=== PATIENT | male | born 1950 | race Caucasian/White ===

== ENCOUNTER 2018-10-18 04:27 | Outpatient (CLI) | payer MEDICARE, OTHER ==
--- NOTE | 2018-10-18 12:15 | RAD ---
XR Chest Pa Lat STANDARD History: [Preop] Comparison: None. Findings: Lungs are clear. No pneumothorax or effusion. Cardiac silhouette and mediastinal contours a re within normal limits. No acute osseous abnormality. Impression: No acute intrathoracic abnormality.
--- NOTE | 2018-10-19 10:58 | EKG ---
Test Reason : Blood Pressure : / mmHG Vent. Rate : 060 BPM Atrial Rate : 060 BPM P-R Int : 150 ms QRS Dur : 086 ms QT Int : 424 ms P-R-T Axes : 055 021 022 degrees QTc Int : 424 ms Normal sinus rhythm Normal ECG No previous ECGs available Confirmed by DR. Paulina HARTLEY ([id number]) on 10/19/2018 10:58:31 AM Referred By: ECTOR Confirmed By:DR. Paulina HARTLEY
== END 2018-10-18 04:28 | disposition home or self-care (01) ==
LOC: LABBT 04:27
PROVIDERS: ATTEND Thoracic Surgery (Cardiothoracic Vascular Surgery)
DX: Z01.818 Encounter for other preprocedural examination (principal); I65.21 Occlusion and stenosis of right carotid artery
CPT/HCPCS: 71046; 93005; 93010

== ENCOUNTER 2018-10-18 11:30 | Inpatient (IN) | payer MEDICARE, OTHER ==
[2018-10-18 12:23] LABS: Hemoglobin 15.7 g/dL (14.0-18.0); Mean Corpuscular Hemoglobin 32.8 pg (27.0-31.0); Mean Corpuscular Volume 96.4 fL (78.0-98.0); Mean Platelet Volume 6.9 fL (7.4-10.4); Platelet Count 188 thou/uL (130-400); RBC Distribution Width 11.8 % (11.5-14.5); Red Blood Cell (RBC) Count 4.79 mill/uL (4.70-6.10)
[2018-10-18 12:33] LABS: PTT 27.1 SEC (22.9-36.1); Prothrombin Time 13.2 SEC (12.0-14.7)
[2018-10-18 12:44] LABS: Anion Gap 13 mmol/L (10-20); BUN (Urea Nitrogen) 18 mg/dL (8.4-25.7); Calc. Creatinine Clearance 0 mL/min (70-130); Calcium 10.3 mg/dL (7.8-10.44); Carbon Dioxide 30 mmol/L (23-31); Chloride 98 mmol/L (98-107); Estimated GFR-MDRD 74; Glucose 112 mg/dL (80-115); Potassium 4.3 mmol/L (3.5-5.1); Sodium 137 mmol/L (136-145)
[2018-10-21] MEDS ORDERED: CEFAZOLIN 1 GM VIAL ONE (06:12)
[2018-10-21] MEDS ORDERED: Vancomycin HCl 1.5 GM in Sodium Chloride 0.9% 250 ML 300 ML IVPB SCH (06:15)
[2018-10-21] MEDS ORDERED: Albumin 5% 0 ML ONE (06:38)
[2018-10-21] MEDS ORDERED: Fentanyl 250 MCG/5 ML VIAL ONE (06:45)
[2018-10-21] MEDS ORDERED: Heparin 10,000 UNITS/1 ML VIAL 30,000 UNITS in Sodium Chloride 0.9% 1,000 ML FS SCH (06:45)
[2018-10-21] MEDS ORDERED: Midazolam HCl 5 mg/5 ml Vial ONE (06:45)
[2018-10-21] MEDS ORDERED: Milrinone 10 MG/10 ML VIAL ONE (06:46)
[2018-10-21] MEDS ORDERED: Vecuronium 10 MG VIAL ONE ×2 (06:46→13:10)
[2018-10-21] MEDS ORDERED: Norepinephrine 8 MG/0.9% NS 250 ML ONE (06:46)
[2018-10-21] MEDS ORDERED: Dexmedetomidine 200 MCG/2 ML VIAL ONE (06:46)
[2018-10-21] MEDS ORDERED: Midazolam HCl 2 mg/2 ml Vial ONE (07:05)
[2018-10-21] MEDS ORDERED: Insulin Regular 300 UNITS/3 ML VIAL ONE (09:49)
[2018-10-21] MEDS ORDERED: Dexamethasone 4 mg/ml Vial ONE (10:52)
[2018-10-21] MEDS ORDERED: Bupivacaine HCl 0.5%/Epinephrine 1:200,000/PF 30 ml Vial ONE (10:52)
[2018-10-21] MEDS ORDERED: Ondansetron PF 4 MG/2 ML Vial IVP PRN (12:07)
[2018-10-21] MEDS ORDERED: Nitroglycerin 50 MG/250 ML BOT 250 ML IVPB PRN (12:07)
[2018-10-21] MEDS ORDERED: Post-Op Insulin Drip Protocol IVPB ONE (12:07)
[2018-10-21] MEDS ORDERED: Promethazine HCl 25 MG/ML VIAL IM PRN (12:07)
[2018-10-21] MEDS ORDERED: Magnesium 2 GM/50 ML 2 GM in Premix Bag 1 BAG IVPB SCH (12:07)
[2018-10-21] MEDS ORDERED: Mag-Al 1200 mg/1200 mg/30 ML UDCUP PO PRN (12:07)
[2018-10-21] MEDS ORDERED: Bisacodyl 10 MG SUPP PR PRN (12:07)
[2018-10-21] MEDS ORDERED: Bisacodyl 5 MG TAB PO PRN (12:07)
[2018-10-21] MEDS ORDERED: Morphine 2 MG/ML SYRINGE SLOW IVP PRN (12:07)
[2018-10-21] MEDS ORDERED: Guaifenesin DM 100-10/5 ML UDCUP PO PRN (12:07)
[2018-10-21] MEDS ORDERED: Acetaminophen 325 MG TAB PO PRN (12:07)
[2018-10-21] MEDS ORDERED: hydrALAZINE 20 MG/ML VIAL SLOW IVP PRN (12:07)
[2018-10-21] MEDS ORDERED: Potassium Chloride 20 MEQ/100 ML PREMIX BAG IVPB PRN (12:07)
[2018-10-21] MEDS ORDERED: D5 1/2 NS w/20 mEq KCL 1,000 ML IV SCH (12:07)
[2018-10-21] MEDS ORDERED: Norepinephrine 8 MG/0.9% NS 250 ML IVPB PRN (12:07)
[2018-10-21] MEDS ORDERED: Hetastarch 6% 500 ML 500 ML IVPB PRN (12:07)
[2018-10-21] MEDS ORDERED: Fentanyl 100 MCG/2 ML VIAL SLOW IVP PRN (12:07)
[2018-10-21] MEDS ORDERED: Albumin 5% 250 ML ONE (12:11)
[2018-10-21 12:14] LABS: Actual Bicarbonate (HCO3a) 23.3 mEq/L (22-28); CO2 Tension 46.1 mmHg (35.0-45.0); Calcium, Ionized 1.21 mmol/L (1.12-1.30); Carboxyhemoglobin (COHb) 1.5 gm% (0.0-3.0); Hemoglobin (Hb) 15.1 g/dL (14.0-18.0); O2 Tension (PaO2) 96.1 mmHg (> 80.0); Potassium - ABG Lab 3.76 mmol/L (3.70-5.30); pH, Arterial 7.32 (7.35-7.45)
[2018-10-21 12:15] LABS: ALV-art Gradient 274.075 (0-20); Puncture Site LINE
--- NOTE | 2018-10-21 12:16 | RAD ---
EXAM: CHEST ONE VIEW HISTORY: Postoperative open heart surgery. COMPARISON: 10/18/2018 FINDINGS: Post surgical changes related to median sternotomy and cardiac valve replacement are noted. Endotrach eal tube is noted place with tip overlying the T3-4 level and above the level of the [place]. Right subclavian central venous catheter is noted in place with tip overlying the right atrium. Mediastinal drains and left-sided thoracostomy tube are noted in place. No pneumothorax is visualized. Cardiac silhouette is magnified by shallow depth inspiration and portable technique. Subsegmental atelectasis is seen in the left upper lobe and at the right lung base. The right lateral costophrenic angle is excluded from view. No pneumothorax or pleural effusion is evident. No other interval change. IMPRESSION: 1. Post surgical changes related to median sternotomy and cardiac valve replacement with lines and tu bes in place as described above. 2. Subsegmental atelectasis in the left upper lobe and right lung base.
[2018-10-21 12:21] LABS: Hemoglobin 14.5 g/dL (14.0-18.0); Mean Corpuscular HGB CONC 34.1 g/dL (32.0-36.0); Mean Corpuscular Hemoglobin 33.4 pg (27.0-31.0); Mean Corpuscular Volume 97.9 fL (78.0-98.0); Mean Platelet Volume 6.9 fL (7.4-10.4); Platelet Count 149 thou/uL (130-400); RBC Distribution Width 11.8 % (11.5-14.5); Red Blood Cell (RBC) Count 4.33 mill/uL (4.70-6.10); White Blood Cell (WBC) Count 25.5 thou/uL (4.8-10.8)
[2018-10-21 12:27] LABS: INR-International Normal Ratio 1.4; PTT 29.4 SEC (22.9-36.1); Prothrombin Time 17.2 SEC (12.0-14.7)
[2018-10-21] MEDS ORDERED: Dextrose 5% in Water 1,000 ML IV PRN (12:27)
[2018-10-21] MEDS ORDERED: Dextrose 50% Abboject 50 ML SYRINGE SLOW IVP PRN (12:27)
[2018-10-21] MEDS ORDERED: HUMULIN R 100 UNITS in Sodium Chloride 0.9% 100 ML IVPB SCH (12:27)
[2018-10-21] MEDS: Ketorolac Tromethamine 30 MG/ML VIAL IVP SCH ×3 (12:32→23:59)
[2018-10-21 12:33] LABS: Anion Gap 12 mmol/L (10-20); BUN (Urea Nitrogen) 14 mg/dL (8.4-25.7); Calc. Creatinine Clearance 122 mL/min (70-130); Calcium 8.8 mg/dL (7.8-10.44); Carbon Dioxide 22 mmol/L (23-31); Chloride 107 mmol/L (98-107); Estimated GFR-MDRD Greater than 90; Glucose 121 mg/dL (80-115); Potassium 3.8 mmol/L (3.5-5.1); Sodium 137 mmol/L (136-145)
[2018-10-21] MEDS: Insulin Regular 300 UNITS/3 ML VIAL SC PRN ×2 (12:35→16:15)
[2018-10-21 12:39] LABS: Band 22 % (5-11); Lymphocytes 2 % (21-51); MDiff Complete? YES; Metamyelocyte 1 % (0-0); Monocytes 10 % (0-10); Neutrophil 65 % (42-75); Platelet Morphology Comment Appears Adequate
[2018-10-21 12:57] VITALS: BMI 31.7
[2018-10-21] MEDS ORDERED: Heparin 5,000 UNITS/ML VIAL ONE (13:10)
[2018-10-21] MEDS ORDERED: PROPOFOL 200 MG/20 ML VIAL ONE (13:10)
[2018-10-21] MEDS ORDERED: Potassium Chloride 60 MEQ/30 ML VIAL ONE (13:10)
[2018-10-21] MEDS ORDERED: Aminocaproic Acid 5 GM/20 ML VIAL ONE (13:10)
[2018-10-21] MEDS ORDERED: Heparin 30,000 units/30 ml VIAL ONE (13:10)
[2018-10-21] MEDS ORDERED: Thrombin 5000 UNITS/5 ML VIAL ONE (13:10)
[2018-10-21] MEDS ORDERED: Mannitol 12.5 GM/50 ML ONE (13:10)
[2018-10-21] MEDS ORDERED: Magnesium 5 GM/10 ML VIAL ONE (13:10)
[2018-10-21] MEDS ORDERED: Lidocaine 2% PF 100 mg/5 ml Syringe ONE (13:10)
[2018-10-21] MEDS ORDERED: Calcium Chloride 1 GM/10 ML Abboject SYRINGE ONE (13:10)
[2018-10-21] MEDS ORDERED: Protamine Sulfate 250 MG/25 ML VIAL ONE (13:10)
[2018-10-21] MEDS ORDERED: Papaverine 60 MG/2 ML VIAL ONE (13:10)
[2018-10-21] MEDS ORDERED: Cardioplegic Soln 1,000 ML BAG ONE (13:10)
[2018-10-21] MEDS ORDERED: Sodium Bicarb 50 MEQ/50 ML VIAL ONE (13:10)
[2018-10-21] MEDS: CEFAZOLIN 2 GM in Premix Bag 1 BAG IVPB SCH ×2 (14:03→23:59)
[2018-10-21 15:20] LABS: Actual Bicarbonate (HCO3a) 22.7 mEq/L (22-28); Base Excess (BEa) -2.7 mEq/L (-2.0 to +3.0); CO2 Tension 41.8 mmHg (35.0-45.0); Calcium, Ionized 1.15 mmol/L (1.12-1.30); Carboxyhemoglobin (COHb) 1.1 gm% (0.0-3.0); Hemoglobin (Hb) 12.5 g/dL (14.0-18.0); O2 Tension (PaO2) 67.6 mmHg (> 80.0); Potassium - ABG Lab 4.83 mmol/L (3.70-5.30); Puncture Site A-LINE; pH, Arterial 7.35 (7.35-7.45)
--- NOTE | 2018-10-21 15:24 | PDOC.PULCN ---
Pulmonology Consult: HPI - Date of Consult Date: 10/21/18 Time: 14:45 - Consult Details Reason for Consult: Critical Care Managment - History of Present Illness HPI: GARRETT GUTIERREZ is a 68 year-old M who comes to CCU post op day 0 after having 3- V CABG and aortic valve replacement. Pt vessel disease was found when he failed outpatient stress test for preop for L. knee replacement. They then did a cath which found 3 vessel disease. The Echo also showed atherosclerosis of the aoritc valve. Pt had LAD/Diaganol and RCA bypassed. Aortic valve replaced with biprothetic valve. Pt is otherwise intubated at this time. Unable to obtain further history. Pulmonology Consult: ROS - Review of Systems ROS unobtainable: due to endotracheal tube Pulmonology Consult: PM Source: other Past Medical History: TICO, HLD, HTN, GERD, Osteoarthritis - Family History Pertinent family history: HTN, CAD - Social History Smoking Status: Former smoker Alcohol Use: daily (2 drinks) Drug Use History: none Pulmonology Consult: Meds - Medications MAR Reviewed: Yes Medications: Current Medications Acetaminophen (Tylenol) 650 mg PO Q6H PRN PRN Reason: Headache/Fever Or Mild Pain Hydrocodone Bitart/Acetaminophen (Swoope 5/325) 1 tab PO Q4H PRN PRN Reason: Moderate Pain (4-6) Hydrocodone Bitart/Acetaminophen (Swoope 5/325) 2 tab PO Q4H PRN PRN Reason: Severe Pain (7-10) Al Hydroxide/Mg Hydroxide (Maalox) 30 ml PO Q4H PRN PRN Reason: Indigestion Albumin Human (Albumin 5%) 12.5 gm IVPB Q6H PRN PRN Reason: To Maintain SBP> 90 mmHG Stop: 10/22/18 12:08 Albumin Human (Albumin 5%) 25 gm IVPB Q6H PRN PRN Reason: To Maintain SBP > 90 mmHG Stop: 10/22/18 12:08 Albuterol/Ipratropium (Duoneb) 3 ml NEB [id number] FAIZAN Albuterol/Ipratropium (Duoneb) 3 ml NEB [id number] PRN PRN Reason: SHORTNESS OF BREATH Aspirin (Aspirin) 325 mg PO DAILY FAIZAN Bisacodyl (Dulcolax) 10 mg PO Q12H PRN PRN Reason: Constipation Bisacodyl (Dulcolax) 10 mg OK Q12H PRN PRN Reason: Constipation Dextrose/Water (Dextrose 50%) 25 gm SLOW IVP PRN PRN PRN Reason: PER HYPOGLYCEMIC PROTOCOL Famotidine (Pepcid) 20 mg SLOW IVP Q12HR FAIZAN Fentanyl (Sublimaze) 25 mcg SLOW IVP Q2H PRN PRN Reason: Moderate Pain (4-6) Stop: 10/23/18 11:54 Fentanyl (Sublimaze) 50 mcg SLOW IVP Q2H PRN PRN Reason: Severe Pain (7-10) Stop: 10/23/18 11:54 Glucagon (Glucagon) 1 mg SC PRN PRN PRN Reason: PER HYPOGLYCEMIC PROTOCOL Guaifenesin/Dextromethorphan (Robitussin Dm) 15 ml PO Q4H PRN PRN Reason: Cough Hydralazine HCl (Apresoline) 10 mg SLOW IVP Q6H PRN PRN Reason: To Maintain SBP< 140mmHG Cefazolin Sodium/Dextrose 2 gm (/ Device) 50 mls @ 100 mls/hr IVPB 0700,1500, 2300 [facility] Stop: 10/22/18 07:29 Last Admin: 10/21/18 14:03 Dose: 50 mls Potassium Chloride/Dextrose/Sod Cl (D5 1/2 Ns W/20 Meq Kcl) 1,000 mls @ 40 mls/ hr IV .Q24H [facility] Last Admin: 10/21/18 12:33 Dose: 1,000 mls Hetastarch/Sodium Chloride (Hespan) 500 mls @ 0 mls/hr IVPB PRN PRN PRN Reason: To Maintain SBP > 90mmHg Stop: 10/22/18 11:54 Last Admin: 10/21/18 12:55 Dose: 500 mls Norepinephrine Bitartrate (Levophed) 250 mls @ 0 mls/hr IVPB PRN PRN; Protocol PRN Reason: To maintain SBP > 90 mmHG Magnesium Sulfate 2 gm/ Device 50 mls @ 50 mls/hr IVPB QAM [facility] Stop: 10/23/18 09:59 Nitroglycerin/Dextrose (Nitroglycerin 50 Mg/250 Ml Bot) 250 mls @ 0 mls/hr IVPB PRN PRN; Protocol PRN Reason: To Maintain SBP< 140mmHG Vancomycin HCl 1.5 gm/ Sodium (Chloride) 300 mls @ 200 mls/hr IVPB 0600,1800 FAIZAN Stop: 10/22/18 07:29 Insulin Human Regular 100 (units/ Sodium Chloride) 101 mls @ 0 mls/hr IVPB INF FAIZAN; Protocol Dextrose/Water (D5w) 1,000 mls @ 0 mls/hr IV INF PRN PRN Reason: PRN HYPOGLYCEMIC PROTOCOL Insulin Glargine (Lantus) 0 units SC ONE PRN PRN Reason: PER OPEN HEART ORDERS Stop: 10/21/18 23:00 Insulin Human Regular (Humulin R) 0 units SC Q4H PRN; Protocol PRN Reason: POST OP SLIDING SCALE Last Admin: 10/21/18 12:35 Dose: 2 unit Ketorolac Tromethamine (Toradol) 30 mg IVP Q6HR FAIZAN Stop: 10/24/18 12:01 Last Admin: 10/21/18 12:32 Dose: 30 mg Morphine Sulfate (Morphine) 2 mg SLOW IVP Q15MIN PRN PRN Reason: Severe Pain (7-10) Ondansetron HCl (Zofran) 4 mg IVP Q6H PRN PRN Reason: Nausea/Vomiting Pneumococcal 13-Valent Conj Vacc (Prevnar) 0.5 ml IM .ONCE ONE Stop: 10/21/18 21:01 Potassium Chloride (Kcl) 20 meq IVPB PRN PRN PRN Reason: K level </= 4.0 Last Admin: 10/21/18 13:28 Dose: 20 meq Promethazine HCl (Phenergan) 6.25 mg IM Q4H PRN PRN Reason: Nausea/Vomiting Sodium Chloride (Flush - Normal Saline) 10 ml IVF PRN PRN PRN Reason: Saline Flush - Allergies Allergies/Adverse Reactions: Allergies Allergy/AdvReac Type Severity Reaction Status Date / Time No Known Allergies Allergy Verified 10/18/18 11:14 Pulmonology Consult: PE - Physical Exam Constitutional: NAD HEENT: PERRLA Neck: no nodes, no JVD, supple Cardiovascular: no rub Deviation from normal: Sinus, Ventricular paced at this time. Reluar Rhythm Respiratory: clear to auscultation anteriorly, clear to auscultation bilaterally , chest wall tenderness (Pt post op. Dressing in place. No sign of excessive drainage) Gastrointestinal: soft, non-tender, no distention, positive bowel sounds Musculoskeletal: no edema, pulses present Deviation from normal: Pt intubated at this time. Follows commands. Deviation from normal: Pt intubated at this time. Skin: no rash, normal turgor, cap refill <2 seconds Pulmonology Consult: Results - Labs Result Diagrams: 10/22/18 04:05 10/22/18 04:05 - ABG Interpretation ABG Results: ABG pH 7.32 (7.35-7.45) L 10/21/18 12:11 ABG pCO2 46.1 mmHg (35.0-45.0) H 10/21/18 12:11 ABG O2 Sat Calc/Jose 96.7 % (94.0-98.0) 10/21/18 12:11 ABG Base Excess -3.0 mEq/L (-2.0 to +3.0) L 10/21/18 12:11 Interpretation: normal - EKG Data EKG shows normal: sinus rhythm Rate: normal - Radiology Interpretation Chest x-ray Status: image reviewed by me, report reviewed by me Pulmonology Consult: A/P - Problem (1) S/P CABG (coronary artery bypass graft) Current Visit: Yes Code(s): Z95.1 - PRESENCE OF AORTOCORONARY BYPASS GRAFT Status: Acute Assessment and Plan: Will continue to follow recs of Cardopulm Surgery. Will keep in ICU for continued monitoring in Post op period. -Ventricular paced and on tele monitoring at this time. -Intubated. Pt undergoing spontaneous breathing trial. Likely wean off vent today. (2) Bioprosthetic aortic valve replacement during current hospitalization Current Visit: Yes Code(s): Z95.3 - PRESENCE OF XENOGENIC HEART VALVE Status : Acute Assessment and Plan: -Continous cardiac monitoring. Follow recs of Cardiopulm Surgery. (3) Hypertension Current Visit: Yes Code(s): I10 - ESSENTIAL (PRIMARY) HYPERTENSION Status: Acute Assessment and Plan: Hold home meds and continue to monitor BP. -Not requiring any pressors at this time. (4) Hyperlipidemia Current Visit: Yes Code(s): E78.5 - HYPERLIPIDEMIA, UNSPECIFIED Status: Acute Assessment and Plan: Continue home meds (5) TICO (obstructive sleep apnea) Current Visit: Yes Code(s): G47.33 - OBSTRUCTIVE SLEEP APNEA (ADULT) ( PEDIATRIC) Status: Acute Assessment and Plan: Pt on ventilator at this time. If weaned off will want to continue with CPAP tx at night. Will want to have bring in home CPAP. - Time Time: 50% of the time was spent in coordination of care (as documented) at patient's floor/unit and/or counseling patient. Time with Patient: greater than 50 minutes Addendum - Attending - Attending Attestation Date/Time: 10/21/18 25631 I personally evaluated the patient and discussed the management with Dr. Nielsen. I agree with the History, Examination, Assessment and Plan documented above with any addition or exceptions noted below. Acute hypoxic respiratory failure. Coronary artery disease, s/p CABG, POD#1 SBT following sedation holiday and possible extubation if criteria are met. Critical care time: 30 minutes.
[2018-10-21] MEDS: Fentanyl 100 MCG/2 ML VIAL SLOW IVP PRN (15:37)
--- NOTE | 2018-10-21 16:28 | OP ---
DATE OF PROCEDURE: 10/21/2018 PREOPERATIVE DIAGNOSIS: Coronary artery disease/aortic stenosis/hypertension/dyslipidemia/obesity. POSTOPERATIVE DIAGNOSIS: Coronary artery disease/aortic stenosis/hypertension/dyslipidemia/obesity. PROCEDURES PERFORMED: 1. Aortic valve replacement with #21 Inspiris bioprosthetic valve. 2. Coronary artery bypass grafting x2 - left internal mammary artery to 1.0 mm mid LAD - good conduit, small target. 3. Reverse saphenous vein to 1.25 mm PDA - good conduit, small target. Note, the diagonal was non-bypassable. CO-SURGEON: Dr. Shayne Newman. ANESTHESIA: General endotracheal - Dr. Mookie Stoddard. PUMP TIME: 102 minutes. CROSS-CLAMP TIME: 81 minutes. LOW CORE TEMPERATURE: 33 degree Celsius. GERIATRICIAN: Amarilys Alvares. DRAINS: 24-Faroese chest tube x3. DRIPS: Levophed at 6 mcg per minute. TRANSFUSIONS: None. DESCRIPTION OF PROCEDURE: After operative consent was obtained, the patient was brought to the operating room, placed in supine position on the operating room table. Appropriate central line was placed and general endotracheal anesthesia was induced. Chest and legs were prepped and draped in usual sterile fashion. Greater saphenous vein was harvested in the left lower extremity utilizing an endoscopic technique. Wounds were irrigated and closed in layers. Median sternotomy was performed. Left internal mammary artery was harvested as a pedicle graft. The patient was systemically heparinized. Distal pedicle was divided and infused with papaverine. Thymic fat and pericardium were divided with electrocautery. Pericardial stay sutures were placed. Aortic and atrial cannulation was performed. After adequate heparinization, the patient was placed on cardiopulmonary bypass. Distal targets were marked. Aortic cross-clamp was applied and an antegrade sanguineous cardioplegic arrest was obtained. 1 L of antegrade [place] cold cardioplegia was given. Topical cold solution was used. Some drain was then placed through the right superior pulmonary vein. Reverse saphenous vein was anastomosed to PDA in an end-to-side fashion with running 7-0 Prolene suture. Anastomosis was tested and was hemostatic. The diagonal system was explored and it was non-bypassable. The mammary artery was anastomosed with the LAD in an end-to-side fashion with running 7-0 Prolene suture. Anastomosis was tested and was hemostatic. On release, mammary claims good hooding anastomosis and good distal flow. The mammary was re-clamped. Pedicle was secured with interrupted 6-0 Prolene suture. 300 mL of antegrade [place] cardioplegia was given. Infusion of CO2 was begun in the pericardial well. A transverse hockey-stick aortotomy was performed. The aortic valve was inspected. It was a three leaflet heavily calcified valve. Leaflets were debrided and the anulus was decalcified. Valve measured at 21 Inspiris bioprosthetic valve. This valve was brought into the operative field. Pledgeted 2-0 Ethibond sutures were placed around the anulus. Sutures were passed through the sewing ring of the valve and the valve seated nicely. The valve was secured with Cor-Knots. The aortotomy was closed with a pledgeted running 4-0 Prolene suture. Punch site was created in the aorta for proximal anastomosis. The saphenous vein was anastomosed to the aorta with running 6-0 Prolene suture. De-airing maneuvers were then performed through the punch site. The suture was then tied. The patient was placed in Trendelenburg position and the aortic cross-clamp was removed. The graft was de-aired. Anastomoses were inspected for hemostasis, which was good. The aortic valve incision was hemostatic. The patient was warmed and weaned from cardiopulmonary bypass. After resumption of sinus rhythm, good hemodynamics, temperature greater than 36.5, bypass was discontinued. Transfusions were given. 24-Faroese chest tubes were placed in the mediastinum x3. Decannulation was performed and pursestring suture was secured. After adequate hemostasis had been obtained, the sternum was treated with vancomycin paste and closed with #7 wire. Sternum was treated with platelet rich plasma and wire was twisted. Wound was irrigated with platelet poor plasma and closed in multiple layers. Needle, sponge, and instrument counts were all reported as correct at the end of the procedure. The patient tolerated the procedure well and was transferred to the intensive care unit in stable, but critical condition. Job ID: [id number] [facility]
[2018-10-21] MEDS: HYDROcodone/Acetaminophen 5/325 mg Tablet PO PRN ×2 (16:49→21:27)
[2018-10-21] MEDS: Vancomycin HCl 1.5 GM in Sodium Chloride 0.9% 250 ML 300 ML IVPB SCH (17:23)
[2018-10-21 18:25] LABS: Potassium 4.7 mmol/L (3.5-5.1)
[2018-10-21 18:38] LABS: Hemoglobin 10.9 g/dL (14.0-18.0)
[2018-10-21] MEDS: Famotidine/PF 20 mg/2ml Vial SLOW IVP SCH (20:56)
[2018-10-21] MEDS ORDERED: Prevnar 13-Val Conj/PF 0.5 ML SYRINGE IM ONE (21:00)
[2018-10-22 04:36] LABS: Anion Gap 12 mmol/L (10-20); BUN (Urea Nitrogen) 22 mg/dL (8.4-25.7); Calc. Creatinine Clearance 87 mL/min (70-130); Calcium 8.2 mg/dL (7.8-10.44); Carbon Dioxide 21 mmol/L (23-31); Chloride 106 mmol/L (98-107); Estimated GFR-MDRD 61; Glucose 142 mg/dL (80-115); Potassium 4.2 mmol/L (3.5-5.1); Sodium 135 mmol/L (136-145)
[2018-10-22 05:02] LABS: #Lymphocytes 0.6 thou/uL (1.20-3.40); #Monocytes 1.6 thou/uL (0.11-0.59); #Neutrophils 14.4 thou/uL (1.40-6.50); %Eosinophils 0.1 % (0.0-10.0); %Lymphocytes 3.7 % (21.0-51.0); %Monocytes 9.4 % (0.0-10.0); %Neutrophils 86.8 % (42.0-75.0); Hemoglobin 9.9 g/dL (14.0-18.0); Mean Corpuscular HGB CONC 33.6 g/dL (32.0-36.0); Mean Corpuscular Hemoglobin 33.1 pg (27.0-31.0); Mean Corpuscular Volume 98.7 fL (78.0-98.0); Platelet Count 106 thou/uL (130-400); Platelet Morphology Comment Appears Decreased; RBC Distribution Width 11.9 % (11.5-14.5); Red Blood Cell (RBC) Count 2.99 mill/uL (4.70-6.10); White Blood Cell (WBC) Count 16.6 thou/uL (4.8-10.8)
[2018-10-22] MEDS: Ketorolac Tromethamine 30 MG/ML VIAL IVP SCH ×4 (05:38→22:57)
[2018-10-22] MEDS: HYDROcodone/Acetaminophen 5/325 mg Tablet PO PRN ×4 (05:39→16:17)
[2018-10-22] MEDS: CEFAZOLIN 2 GM in Premix Bag 1 BAG IVPB SCH (06:12)
[2018-10-22] MEDS: Vancomycin HCl 1.5 GM in Sodium Chloride 0.9% 250 ML 300 ML IVPB SCH (07:18)
--- NOTE | 2018-10-22 08:15 | RAD ---
PORTABLE CHEST: Date: 10/22/18 HISTORY: Postop sternotomy. COMPARISON: 10/21/18. FINDINGS: Cardiomegaly with postop sternotomy change. Streaky atelectasis or infiltrate radiating into the left upper lung from the suprahilar region again noted. There is vascular congestion. Probable small effu sions. Central line is unchanged with tip overlying the right atrium. Chest drainage tubes again note d. IMPRESSION: Persistent streaky atelectasis and/or infiltrate extending into the left upper lung from the left sup rahilar region. No significant change from yesterday. POS: OFF
[2018-10-22] MEDS: Magnesium 2 GM/50 ML 2 GM in Premix Bag 1 BAG IVPB SCH (08:38)
[2018-10-22] MEDS: Aspirin 325 MG TAB PO SCH (08:39)
[2018-10-22] MEDS: Famotidine/PF 20 mg/2ml Vial SLOW IVP SCH (08:39)
[2018-10-22 12:11] LABS: Actual Bicarbonate (HCO3a) 24.8 mEq/L (22-28); Analyzer IN Cardio OR; CO2 Tension 45.8 mmHg (35.0-45.0); Calcium, Ionized 0.97 mmol/L (1.12-1.30); Carboxyhemoglobin (COHb) 0.3 gm% (0.0-3.0); Hemoglobin (Hb) 10.7 g/dL (14.0-18.0); O2 Tension (PaO2) 384.1 mmHg (> 80.0); pH, Arterial 7.35 (7.35-7.45)
[2018-10-22 12:11] LABS: Actual Bicarbonate (HCO3a) 22.5 mEq/L (22-28); Analyzer IN Cardio OR; Base Excess (BEa) -1.2 mEq/L (-2.0 to +3.0); Calcium, Ionized 0.91 mmol/L (1.12-1.30); Carboxyhemoglobin (COHb) 0.3 gm% (0.0-3.0); Hemoglobin (Hb) 10.3 g/dL (14.0-18.0); Potassium - ABG Lab 4.57 mmol/L (3.70-5.30); pH, Arterial 7.44 (7.35-7.45)
[2018-10-22 12:11] LABS: Actual Bicarbonate (HCO3v) 25 mEq/L (22-28); Analyzer IN Cardio OR; Base Excess -0.6 mEq/L (-2.0 to +3.0); Calcium, Ionized 0.99 mmol/L (1.16-1.32); Chloride (ABG LAB) 101 mmol/L (98-106); Hemoglobin (Hb) 10.8 g/dL (12.6-17.4); Potassium - ABG Lab 5.29 mmol/L (3.70-5.30); Sodium 131.9 mmol/L (133-146); pH (venous) 7.35 (7.32-7.43)
[2018-10-22 12:12] LABS: Actual Bicarbonate (HCO3a) 23.9 mEq/L (22-28); Analyzer IN Cardio OR; Base Excess (BEa) -0.5 mEq/L (-2.0 to +3.0); CO2 Tension 38.5 mmHg (35.0-45.0); Calcium, Ionized 1.08 mmol/L (1.12-1.30); Carboxyhemoglobin (COHb) 0.9 gm% (0.0-3.0); Hemoglobin (Hb) 13.9 g/dL (14.0-18.0); O2 Tension (PaO2) 483.6 mmHg (> 80.0); Potassium - ABG Lab 4.39 mmol/L (3.70-5.30); pH, Arterial 7.41 (7.35-7.45)
[2018-10-22 12:12] LABS: Analyzer IN Cardio OR; CO2 Tension 37.3 mmHg (35.0-45.0); Calcium, Ionized 1.14 mmol/L (1.12-1.30); Carboxyhemoglobin (COHb) 0.8 gm% (0.0-3.0); Hemoglobin (Hb) 14.6 g/dL (14.0-18.0); O2 Tension (PaO2) 464.7 mmHg (> 80.0); Potassium - ABG Lab 4.18 mmol/L (3.70-5.30); pH, Arterial 7.43 (7.35-7.45)
[2018-10-22 12:13] LABS: Actual Bicarbonate (HCO3a) 24.5 mEq/L (22-28); Analyzer IN Cardio OR; Base Excess (BEa) -0.6 mEq/L (-2.0 to +3.0); CO2 Tension 42.4 mmHg (35.0-45.0); Calcium, Ionized 0.98 mmol/L (1.12-1.30); Carboxyhemoglobin (COHb) 0.1 gm% (0.0-3.0); O2 Tension (PaO2) 351.3 mmHg (> 80.0); Potassium - ABG Lab 4.84 mmol/L (3.70-5.30); pH, Arterial 7.38 (7.35-7.45)
[2018-10-22 12:13] LABS: Actual Bicarbonate (HCO3a) 24.2 mEq/L (22-28); Analyzer IN Cardio OR; Base Excess (BEa) -0.8 mEq/L (-2.0 to +3.0); CO2 Tension 41.3 mmHg (35.0-45.0); Carboxyhemoglobin (COHb) 0.5 gm% (0.0-3.0); Hemoglobin (Hb) 11.4 g/dL (14.0-18.0); O2 Tension (PaO2) 358.9 mmHg (> 80.0); pH, Arterial 7.39 (7.35-7.45)
[2018-10-22 12:14] LABS: Actual Bicarbonate (HCO3a) 22.9 mEq/L (22-28); Analyzer IN Cardio OR; Base Excess (BEa) -1.5 mEq/L (-2.0 to +3.0); CO2 Tension 37.3 mmHg (35.0-45.0); Calcium, Ionized 1.28 mmol/L (1.12-1.30); Hemoglobin (Hb) 11.2 g/dL (14.0-18.0); O2 Tension (PaO2) 290.1 mmHg (> 80.0); Potassium - ABG Lab 3.81 mmol/L (3.70-5.30); pH, Arterial 7.41 (7.35-7.45)
[2018-10-22 12:15] LABS: Puncture Site ALINE
[2018-10-22 12:15] LABS: Puncture Site ALINE
[2018-10-22 12:16] LABS: O2 Tension (PaO2) 506.5 mmHg (> 80.0); Puncture Site ALINE
[2018-10-22 12:17] LABS: Puncture Site ALINE
[2018-10-22 12:26] LABS: Puncture Site ALINE
[2018-10-22 12:26] LABS: Puncture Site ALINE
[2018-10-22 12:27] LABS: Puncture Site ALINE
[2018-10-22] MEDS: Fentanyl 100 MCG/2 ML VIAL SLOW IVP PRN (14:24)
[2018-10-22] MEDS ORDERED: Furosemide 40 MG/4 ML VIAL SLOW IVP SCH (15:45)
[2018-10-22] MEDS ORDERED: Lidocaine 1% (PF) 30 ML VIAL IJ SCH (16:30)
--- NOTE | 2018-10-22 17:05 | PRG ---
DATE OF SERVICE: 10/22/2018 SERVICE: Pulmonary Medicine. INTERVAL HISTORY: The patient was breathing pretty well until he ended up having a little bit of a coughing fit. He got a nebulized medication. This seemed to make things a little bit worse for a short period of time. Then, he finally got up a little plugs of clear mucus. Since then, he settled back down. He denies any current fevers or chills. He has no nausea, vomiting, or diarrhea. He is working with physical therapy currently. He does have a significant dyspnea, which is worse than yesterday. PHYSICAL EXAMINATION: VITAL SIGNS: Afebrile, pulse 92, blood pressure 139/87, respirations 24, saturation 97% on 2 L nasal cannula currently. GENERAL: The patient is awake and alert, in no apparent distress. LUNGS: There is a reduced air entry. No prolonged expiratory phase. He has wheezing, rhonchi, and crackles present. The rhonchi and crackles predominate. HEART: Normal rate. Regular. ABDOMEN: Soft, nontender, and nondistended. Bowel sounds are positive. MUSCULOSKELETAL: No cyanosis or clubbing. Trace pitting is present in bilateral lower extremities. NEUROLOGIC: Grossly nonfocal. LABORATORY DATA: WBC downtrending to 16.6, hemoglobin 9.9 and gently downtrending, platelets 106,000. INR 1.4. PH of 7.35, pCO2 of 42, pO2 of 68. Basic metabolic profile is essentially unremarkable. His creatinine is gently uptrending to 1.19. Sodium 135 and downtrending. IMAGING STUDIES: Chest x-ray shows left-sided pleural effusion. There is a left-sided thoracostomy drain in place. There is some atelectasis in the left upper lobe. The right lung is relatively clear. There is stable subclavian central venous catheter in good position. Interval extubation is noted. ASSESSMENT: 1. Acute hypoxic respiratory failure. 2. Chronic obstructive pulmonary disease as evidenced by obstructive airflow limitation on ventilator waveforms with mild exacerbation. 3. Coronary artery disease, status post coronary artery bypass graft, postoperative day 1. 4. Obstructive sleep apnea. DISCUSSION AND PLAN: The patient seems to be having increasing respiratory difficulties. This is likely multifactorial associated with volume overload, atelectasis, and underlying undiagnosed lung process. I will initiate scheduled Mucinex, give the patient one dose of prednisone, and initiate BiPAP on an as-needed basis. I will also provide him with a single dose of Lasix and interrupt IV fluids. Pulmonary Critical Care will continue to follow along. He will likely need to remain in the ICU for the time being. Job ID: [id number] MTDD
[2018-10-22] MEDS ORDERED: guaiFENesin ER 600 MG TAB PO SCH (17:30)
[2018-10-22] MEDS ORDERED: predniSONE 20 MG TAB PO SCH (17:30)
--- NOTE | 2018-10-22 17:39 | PDOC.CTH ---
Cardiology Progress Note - Subjective Doing well. Extubated. - Objective Vital Signs Temp Pulse Pulse Pulse Resp BP BP 10/22/18 16:30 82 21 H 10/22/18 16:00 98.2 F 10/22/18 15:44 81 94 119/70 139/87 10/22/18 13:47 73 18 10/22/18 12:00 98.1 F 10/22/18 09:43 71 15 10/22/18 08:00 10/22/18 07:49 80 19 Pulse Ox Pulse Ox Pulse Ox 10/22/18 16:30 94 L 10/22/18 16:00 10/22/18 15:44 94 L 97 10/22/18 13:47 93 L 10/22/18 12:00 10/22/18 09:43 92 L 10/22/18 08:00 96 10/22/18 07:49 93 L Weight 225 lb 12.054 oz 10/21/18 10/22/18 10/23/18 06:59 06:59 06:59 Intake Total 3780.5 1097 Output Total 1298 555 Balance 2482.5 542 - Physical Examination General/Neuro: alert & oriented x3, NAD Neck: no JVD present Lungs: CTA, unlabored respirations Heart: PMI normal, RRR Abdomen: NT/ND, soft Extremities: + femoral B - Telemetry Telemetry Rhythm: SR - Labs Result Diagrams: 10/22/18 04:05 10/22/18 04:05 - Assessment/Plan CAD s/p CABG AVR Pt maintaining SR Keep pacer at 60BPM Off levophed IP and PT Hold BB for now Statin treatment
[2018-10-22] MEDS: Budesonide 0.5 MG/2 ML NEB INH SCH (18:19)
[2018-10-22] MEDS: guaiFENesin ER 600 MG TAB PO SCH (20:20)
[2018-10-22] MEDS: Gabapentin 100 MG CAP PO SCH (20:20)
[2018-10-22] MEDS: Atorvastatin Calcium 20 MG TAB PO SCH (20:21)
[2018-10-22] MEDS: Famotidine 20 MG TAB PO SCH (20:21)
[2018-10-22] MEDS ORDERED: Non-Formulary Item 1 EACH (Pravastatin Sodium [Pravastatin Sodium] 1 TAB) PO SCH (21:00)
[2018-10-22] MEDS ORDERED: Gabapentin 100 MG CAP PO SCH (21:00)
[2018-10-23 05:09] LABS: #Lymphocytes 0.4 thou/uL (1.20-3.40); #Monocytes 1.2 thou/uL (0.11-0.59); %Eosinophils 0.1 % (0.0-10.0); %Lymphocytes 2.8 % (21.0-51.0); %Monocytes 8.1 % (0.0-10.0); Hemoglobin 9.7 g/dL (14.0-18.0); Mean Corpuscular HGB CONC 33.2 g/dL (32.0-36.0); Mean Corpuscular Hemoglobin 33.2 pg (27.0-31.0); Mean Platelet Volume 7.4 fL (7.4-10.4); Platelet Count 94 thou/uL (130-400); RBC Distribution Width 12.4 % (11.5-14.5); Red Blood Cell (RBC) Count 2.92 mill/uL (4.70-6.10); White Blood Cell (WBC) Count 14.6 thou/uL (4.8-10.8)
[2018-10-23 05:27] LABS: Anion Gap 14 mmol/L (10-20); BUN (Urea Nitrogen) 29 mg/dL (8.4-25.7); Calc. Creatinine Clearance 84 mL/min (70-130); Calcium 8.7 mg/dL (7.8-10.44); Carbon Dioxide 25 mmol/L (23-31); Chloride 100 mmol/L (98-107); Estimated GFR-MDRD 59; Glucose 172 mg/dL (80-115); Potassium 4.5 mmol/L (3.5-5.1); Sodium 134 mmol/L (136-145)
[2018-10-23] MEDS: Ketorolac Tromethamine 30 MG/ML VIAL IVP SCH ×3 (05:42→21:10)
--- NOTE | 2018-10-23 06:14 | PDOC.CTH ---
Cardiology Progress Note - Subjective Doing well this am. - Objective Vital Signs Temp Pulse Resp Pulse Ox 10/23/18 04:00 97.6 F 10/23/18 00:07 69 10 L 95 10/23/18 00:00 98.1 F 10/22/18 20:00 97.7 F 95 10/22/18 18:18 84 25 H 95 Weight 225 lb 12.054 oz 10/21/18 10/22/18 10/23/18 06:59 06:59 06:59 Intake Total 3780.5 1457 Output Total 1298 1655 Balance 2482.5 -198 - Physical Examination General/Neuro: alert & oriented x3, NAD Neck: carotid US brisk, no JVD present Lungs: CTA, unlabored respirations Heart: PMI normal, RRR Abdomen: NT/ND, soft Extremities: + femoral B - Telemetry Telemetry Rhythm: sr - Labs Result Diagrams: 10/23/18 04:45 10/23/18 04:45 - Assessment/Plan CAD s/p CABG AVR Rec 10/23 No changes PM removed In SR IS, PT Hold BB for now given recent pacer dependence. Statins No pressors REC 10/22 Pt maintaining SR Keep pacer at 60BPM Off levophed IP and PT Hold BB for now Statin treatment
[2018-10-23] MEDS: Budesonide 0.5 MG/2 ML NEB INH SCH ×2 (06:44→19:32)
[2018-10-23] MEDS ORDERED: Furosemide 40 MG TAB PO SCH (07:30)
[2018-10-23] MEDS: guaiFENesin ER 600 MG TAB PO SCH ×2 (07:37→21:09)
[2018-10-23] MEDS: Amlodipine 10 MG TAB PO SCH (07:37)
[2018-10-23] MEDS: Folic Acid 1 MG TAB PO SCH (07:38)
[2018-10-23] MEDS: Aspirin 325 MG TAB PO SCH (07:38)
[2018-10-23] MEDS: Famotidine 20 MG TAB PO SCH ×2 (07:39→21:09)
[2018-10-23] MEDS: Gabapentin 100 MG CAP PO SCH ×2 (07:39→21:09)
[2018-10-23] MEDS: Magnesium 2 GM/50 ML 2 GM in Premix Bag 1 BAG IVPB SCH (07:46)
--- NOTE | 2018-10-23 08:30 | RAD ---
CHEST ONE VIEW: HISTORY: Postop open heart. Followup. FINDINGS: Recent postop midline sternotomy, including right-sided central line and chest tubes in place, withou t evidence for pneumothorax. Patchy parenchymal changes are noted in the left upper lobe and left ba se with small left pleural effusion. IMPRESSION: Stable postoperative changes. Continued short-term followup. POS: OFF
[2018-10-23] MEDS ORDERED: NIACIN 500 MG PO SCH (09:00)
[2018-10-23] MEDS ORDERED: Amlodipine 10 MG TAB PO SCH (09:00)
[2018-10-23] MEDS ORDERED: ICOSAPENT ETHYL PO SCH (09:00)
[2018-10-23] MEDS ORDERED: Non-Formulary Item 1 EACH (Folic Acid [Folic Acid] 0.4 MG) PO SCH (09:00)
--- NOTE | 2018-10-23 10:23 | PRG ---
DATE OF SERVICE: 10/23/2018 SERVICE: Pulmonary Medicine. INTERVAL HISTORY: The patient is doing really well from respiratory standpoint today. He is breathing much more comfortably. He has been able to get up out of bed and walk with physical therapy briefly. There has been no change to his condition, and he has no specific complaints this morning. PHYSICAL EXAMINATION: VITAL SIGNS: Afebrile, pulse 80, blood pressure 160/58, respirations 14, and saturation 97% on room air. GENERAL: The patient is awake and alert, in no apparent distress. LUNGS: Decent air entry. Today, there is minimal prolonged expiratory phase. I do not appreciate wheezing, crackles, or rhonchi that were present yesterday. HEART: Normal rate and regular. ABDOMEN: Soft, nontender, and nondistended. Bowel sounds are positive. MUSCULOSKELETAL: No cyanosis or clubbing. No pitting in the bilateral lower extremities. NEUROLOGIC: Grossly nonfocal. LABORATORY DATA: WBC 14.6, hemoglobin 9.7, platelets 94,000 and roughly stable compared to yesterday. 90% neutrophils are present. INR 1.4. Creatinine 1.22 and gently up-trending. Sodium 134 and stable. IMAGING STUDIES: Chest x-ray demonstrates atelectasis streaking up into the left hilum. There is a left-sided pleural effusion present. Thoracostomy tube is also present there. There were a low lung volumes on the right. There is a right- sided subclavian central venous catheter in good position. The patient is significantly rotated left anterior oblique. I do not see any new consolidating changes or infiltrates. ASSESSMENT: 1. Acute hypoxic respiratory failure, resolved. 2. Chronic obstructive pulmonary disease based on ventilator waveforms, likely not diagnosed. 3. Coronary artery disease, status post coronary artery bypass graft, postop day #2. 4. Obstructive sleep apnea. DISCUSSION AND PLAN: At this point, the patient is stable for transition out of the ICU to the medical unit. When he arrives on the floor, he will have no further requirements for inpatient Pulmonary/Critical Care opinion, and I will sign off. Please call with additional questions or concerns through time. If he has persistent dyspnea on exertion after he heals up and completes rehabilitation, it would be reasonable to look into whether or not obstructive lung disease playing a role in his dyspnea. If he still inclined, he can pursue this in the outpatient setting. No specific followup, however, will be arranged. Job ID: [id number] MTDD
--- NOTE | 2018-10-23 11:54 | EKG ---
Test Reason : POST CABG Blood Pressure : / mmHG Vent. Rate : 051 BPM Atrial Rate : 051 BPM P-R Int : 162 ms QRS Dur : 092 ms QT Int : 390 ms P-R-T Axes : 026 -23 062 degrees QTc Int : 359 ms Sinus bradycardia One ventricular paced beat. Otherwise normal ECG When compared with ECG of 18-OCT-2018 11:52, Nonspecific T wave abnormality now evident in Lateral leads QT has shortened Confirmed by DR. Monse HERNANDEZ ([id number]) on 10/23/2018 11:54:00 AM Referred By: ECTOR Confirmed By:DR. Monse HERNANDEZ
[2018-10-23] MEDS: HYDROcodone/Acetaminophen 5/325 mg Tablet PO PRN (14:02)
[2018-10-23] MEDS ORDERED: Zolpidem Tartrate 5 MG TAB PO PRN (19:46)
[2018-10-23] MEDS ORDERED: Artificial Tears 18 DROP/0.9 ML EA EYE PRN (19:46)
[2018-10-23] MEDS ORDERED: Mag-Al 1200 mg/1200 mg/30 ML UDCUP PO PRN (19:46)
[2018-10-23] MEDS ORDERED: diphenhydrAMINE 25 MG CAP PO PRN (19:46)
[2018-10-23] MEDS ORDERED: Milk Of Magnesia 30 ML UDCUP PO PRN (19:46)
[2018-10-23] MEDS ORDERED: Guaifenesin DM 100-10/5 ML UDCUP PO PRN (19:46)
[2018-10-23] MEDS ORDERED: Mineral Oil ENEMA PR PRN (19:46)
[2018-10-23] MEDS ORDERED: Bisacodyl 10 MG SUPP PR PRN (19:46)
[2018-10-23] MEDS ORDERED: Nitroglycerin 0.4 MG TAB (25 Tab Bottle) SL PRN (19:46)
[2018-10-23] MEDS ORDERED: Bisacodyl 5 MG TAB PO PRN (19:46)
[2018-10-23] MEDS ORDERED: Atenolol 50 MG TAB PO SCH (21:00)
[2018-10-23] MEDS: Furosemide 40 MG TAB PO SCH (21:09)
[2018-10-23] MEDS: Atenolol 25 MG TAB PO SCH (21:09)
[2018-10-23] MEDS: Atorvastatin Calcium 20 MG TAB PO SCH (21:09)
[2018-10-24] MEDS: Ketorolac Tromethamine 30 MG/ML VIAL IVP SCH ×3 (00:34→12:25)
--- NOTE | 2018-10-24 05:26 | PDOC.CTH ---
Cardiology Progress Note - Subjective Doing great today - Objective Vital Signs Temp Pulse Resp BP BP Pulse Ox 10/24/18 03:10 97.5 F L 73 22 H 102/56 L 95 10/24/18 00:00 68 111/62 10/23/18 23:19 80 18 10/23/18 21:09 86 147/81 H 10/23/18 20:00 98.4 F 86 24 H 147/81 H 95 10/23/18 19:28 78 16 Weight 225 lb 12.054 oz 10/22/18 10/23/18 10/24/18 06:59 06:59 06:59 Intake Total 3780.5 1457 960 Output Total 1298 1680 740 Balance 2482.5 -223 220 - Physical Examination General/Neuro: alert & oriented x3, NAD Neck: carotid US brisk, no JVD present Lungs: unlabored respirations Heart: PMI normal, RRR Abdomen: NT/ND, soft Extremities: + femoral B - Telemetry Telemetry Rhythm: sr - Labs Result Diagrams: 10/23/18 04:45 10/23/18 04:45 - Assessment/Plan CAD s/p CABG AVR REC 10/24 IP, PT Hold BB Statin therapy Rec 10/23 No changes TPM removed In SR IS, PT Hold BB for now given recent pacer dependence. Statins No pressors Chest tube per Dr. Rutledge REC 10/22 Pt maintaining SR Keep pacer at 60BPM Off levophed IP and PT Hold BB for now Statin treatment
[2018-10-24] MEDS: Budesonide 0.5 MG/2 ML NEB INH SCH ×2 (06:29→18:40)
[2018-10-24] MEDS: guaiFENesin ER 600 MG TAB PO SCH ×2 (09:16→21:07)
[2018-10-24] MEDS: Gabapentin 100 MG CAP PO SCH ×2 (09:16→21:07)
[2018-10-24] MEDS: Folic Acid 1 MG TAB PO SCH (09:16)
[2018-10-24] MEDS: Aspirin 325 mg Enteric Coated Tablet PO SCH (09:16)
[2018-10-24] MEDS: Famotidine 20 MG TAB PO SCH ×2 (09:16→21:07)
[2018-10-24] MEDS: Furosemide 40 MG TAB PO SCH ×2 (09:16→21:07)
[2018-10-24] MEDS: Amlodipine 10 MG TAB PO SCH (09:17)
[2018-10-24] MEDS ORDERED: Digoxin 0.5 MG/2 ML AMP SLOW IVP SCH (20:15)
[2018-10-24] MEDS ORDERED: Diltiazem 125 MG in Sodium Chloride 0.9% 100 ML IVPB SCH (20:15)
[2018-10-24] MEDS: Atenolol 25 MG TAB PO SCH (21:07)
[2018-10-24] MEDS: HYDROcodone/Acetaminophen 5/325 mg Tablet PO PRN (21:08)
[2018-10-24] MEDS: Atorvastatin Calcium 20 MG TAB PO SCH (21:08)
--- NOTE | 2018-10-25 06:47 | PDOC.CTH ---
Cardiology Progress Note - Subjective Pt developed afib last pm. No current symptoms. - Objective Vital Signs Temp Pulse Resp BP BP Pulse Ox 10/25/18 04:00 97.9 F 100 17 94/56 L 96 10/25/18 00:00 81 150/87 H 10/24/18 23:29 114 H 18 10/24/18 21:07 81 112/65 10/24/18 20:34 121 H 10/24/18 20:00 97.9 F 121 H 20 128/62 95 Weight 225 lb 4.8 oz 10/23/18 10/24/18 10/25/18 06:59 06:59 06:59 Intake Total 1457 1460 1190 Output Total 1680 1140 2860 Balance -223 320 -1670 - Physical Examination General/Neuro: alert & oriented x3, NAD Neck: carotid US brisk, no JVD present Lungs: unlabored respirations Heart: other: (irr) Abdomen: NT/ND, soft Extremities: + femoral B - Labs Result Diagrams: 10/23/18 04:45 10/23/18 04:45 - Assessment/Plan CAD s/p cABG post op afib continue CCB Add IV amiodarone No ACT for now Did not use BB given recent bradycardia post op
[2018-10-25] MEDS: Aspirin 325 mg Enteric Coated Tablet PO SCH (08:40)
[2018-10-25] MEDS: Famotidine 20 MG TAB PO SCH ×2 (08:41→21:15)
[2018-10-25] MEDS: Folic Acid 1 MG TAB PO SCH (08:41)
[2018-10-25] MEDS: guaiFENesin ER 600 MG TAB PO SCH ×2 (08:41→21:15)
[2018-10-25] MEDS: Gabapentin 100 MG CAP PO SCH ×2 (08:41→21:15)
[2018-10-25] MEDS: Amlodipine 10 MG TAB PO SCH (08:42)
[2018-10-25] MEDS: Furosemide 40 MG TAB PO SCH ×2 (08:42→14:42)
[2018-10-25] MEDS: Budesonide 0.5 MG/2 ML NEB INH SCH ×2 (09:11→18:41)
[2018-10-25] MEDS: Amiodarone 450 MG in Dextrose 5% in Water 250 ML IVPB SCH ×2 (11:24→21:15)
[2018-10-25] MEDS: ICOSAPENT ETHYL PO SCH ×2 (14:54→15:45)
[2018-10-25] MEDS ORDERED: Diltiazem 125 MG in Sodium Chloride 0.9% 100 ML IVPB SCH (17:30)
[2018-10-25] MEDS: Ipratropium Oral Inhaler (200 INHALATIONS) INH SCH (18:44)
[2018-10-25] MEDS: Atenolol 25 MG TAB PO SCH (21:15)
[2018-10-25] MEDS: Atorvastatin Calcium 20 MG TAB PO SCH (21:16)
[2018-10-25] MEDS: HYDROcodone/Acetaminophen 5/325 mg Tablet PO PRN (21:16)
[2018-10-26] MEDS: Ipratropium Oral Inhaler (200 INHALATIONS) INH SCH ×4 (00:29→18:37)
[2018-10-26] MEDS: Budesonide 0.5 MG/2 ML NEB INH SCH ×2 (06:57→18:34)
[2018-10-26] MEDS: Amiodarone 200 MG TAB PO SCH ×2 (08:16→19:43)
[2018-10-26] MEDS: Furosemide 40 MG TAB PO SCH ×2 (08:16→11:56)
[2018-10-26] MEDS: guaiFENesin ER 600 MG TAB PO SCH ×2 (08:17→19:44)
[2018-10-26] MEDS: Amlodipine 10 MG TAB PO SCH ×2 (08:17→10:53)
[2018-10-26] MEDS: Folic Acid 1 MG TAB PO SCH (08:17)
[2018-10-26] MEDS: Aspirin 325 mg Enteric Coated Tablet PO SCH (08:17)
[2018-10-26] MEDS: Gabapentin 100 MG CAP PO SCH ×2 (08:17→19:44)
[2018-10-26] MEDS: Famotidine 20 MG TAB PO SCH ×2 (08:17→19:44)
[2018-10-26] MEDS: HYDROcodone/Acetaminophen 5/325 mg Tablet PO PRN ×2 (16:09→19:46)
[2018-10-26] MEDS: Atorvastatin Calcium 20 MG TAB PO SCH (19:44)
[2018-10-27] MEDS: Ipratropium Oral Inhaler (200 INHALATIONS) INH SCH ×5 (00:32→23:08)
[2018-10-27] MEDS: Budesonide 0.5 MG/2 ML NEB INH SCH ×2 (06:38→18:21)
[2018-10-27] MEDS: Amlodipine 10 MG TAB PO SCH (08:35)
[2018-10-27] MEDS: Aspirin 81 mg Enteric Coated Tablet PO SCH (08:35)
[2018-10-27] MEDS: Amiodarone 200 MG TAB PO SCH ×2 (08:35→20:41)
[2018-10-27] MEDS: guaiFENesin ER 600 MG TAB PO SCH ×2 (08:36→20:42)
[2018-10-27] MEDS: Folic Acid 1 MG TAB PO SCH (08:36)
[2018-10-27] MEDS: Furosemide 40 MG TAB PO SCH ×2 (08:36→12:06)
[2018-10-27] MEDS: Famotidine 20 MG TAB PO SCH ×2 (08:36→20:41)
[2018-10-27] MEDS: Gabapentin 100 MG CAP PO SCH ×2 (08:36→20:41)
[2018-10-27] MEDS: Atorvastatin Calcium 20 MG TAB PO SCH (20:41)
[2018-10-27] MEDS: Apixaban 5 MG TAB PO SCH (20:41)
[2018-10-28] MEDS: Ipratropium Oral Inhaler (200 INHALATIONS) INH SCH (06:41)
[2018-10-28] MEDS: Budesonide 0.5 MG/2 ML NEB INH SCH (06:42)
[2018-10-28] MEDS: Amiodarone 200 MG TAB PO SCH (08:57)
[2018-10-28] MEDS: Amlodipine 10 MG TAB PO SCH (08:57)
[2018-10-28] MEDS: Aspirin 81 mg Enteric Coated Tablet PO SCH (08:57)
[2018-10-28] MEDS: Apixaban 5 MG TAB PO SCH (08:57)
[2018-10-28] MEDS: guaiFENesin ER 600 MG TAB PO SCH (08:57)
[2018-10-28] MEDS: Folic Acid 1 MG TAB PO SCH (08:58)
[2018-10-28] MEDS: Gabapentin 100 MG CAP PO SCH (08:58)
[2018-10-28] MEDS: Furosemide 40 MG TAB PO SCH (08:58)
[2018-10-28] MEDS: Famotidine 20 MG TAB PO SCH (08:58)
[2018-10-28 09:01] VITALS: BP 133/60; TEMP 97.8
--- NOTE | 2018-10-29 10:28 | DIS ---
DATE OF ADMISSION: 10/21/2018 DATE OF DISCHARGE: 10/28/2018 HISTORY OF PRESENT ILLNESS: Mr. Collins was brought in electively for aortic valve replacement and coronary artery bypass grafting. On 10/21, he underwent aortic valve replacement with #21 Inspiris bioprosthetic valve and coronary artery bypass grafting x2 with left internal mammary artery to LAD and saphenous vein graft to PDA. Postoperatively, he did well, was transferred out of the intensive care unit on the 2nd postoperative day. He began to have atrial fibrillation issues. He was initially started on a diltiazem drip followed by amiodarone. He was anticoagulated yesterday with Eliquis. He is going home today in good condition. He will follow up with me in 2 weeks, Dr. Pepe in a month. DISCHARGE MEDICATIONS: 1. Aspirin 325 mg daily. 2. Norvasc 10 mg at bedtime. 3. Atenolol 50 mg at bedtime. 4. Folic acid 0.4 mg daily. 5. Gabapentin 100 mg b.i.d. 6. daily. 7. Niacin 500 mg daily. 8. Pravastatin 80 mg at bedtime. 9. Amiodarone 400 mg b.i.d. 10. Eliquis 5 mg b.i.d. 11. Lasix 40 mg b.i.d. for 10 days. 12. [place] 5/325 one to two q.6 hours p.r.n. pain. Job ID: [id number]
== END 2018-10-28 11:06 | disposition home or self-care (01) | DRG 219 ==
LOC: SURG A 10-21 05:46 → CCU 10-21 12:05 → 2NO 10-23 19:19
PROVIDERS: ADMIT Thoracic Surgery (Cardiothoracic Vascular Surgery); ATTEND Thoracic Surgery (Cardiothoracic Vascular Surgery)
PROC: 02RF08Z Replacement of Aortic Valve with Zooplastic Tissue, Open Approach (ICD-10-PCS; principal; 2018-10-21)
PROC: 02100Z9 Bypass Coronary Artery, One Artery from Left Internal Mammary, Open Approach (ICD-10-PCS; 2018-10-21)
PROC: 021009W Bypass Coronary Artery, One Artery from Aorta with Autologous Venous Tissue, Open Approach (ICD-10-PCS; 2018-10-21)
PROC: 06BQ4ZZ Excision of Left Saphenous Vein, Percutaneous Endoscopic Approach (ICD-10-PCS; 2018-10-21)
PROC: 5A1221Z Performance of Cardiac Output, Continuous (ICD-10-PCS; 2018-10-21)
DX: I25.10 Atherosclerotic heart disease of native coronary artery without angina pectoris (principal); J96.01 Acute respiratory failure with hypoxia; J98.11 Atelectasis; I97.89 Other postprocedural complications and disorders of the circulatory system, not elsewhere classified; I35.0 Nonrheumatic aortic (valve) stenosis; I65.21 Occlusion and stenosis of right carotid artery; G47.33 Obstructive sleep apnea (adult) (pediatric); E78.5 Hyperlipidemia, unspecified; I10 Essential (primary) hypertension; E66.9 Obesity, unspecified; K21.9 Gastro-esophageal reflux disease without esophagitis; M19.91 Primary osteoarthritis, unspecified site; J44.9 Chronic obstructive pulmonary disease, unspecified; Z87.891 Personal history of nicotine dependence; Z79.82 Long term (current) use of aspirin
CPT/HCPCS: 36416; 36430; 71045; 71046; 80048; 82805; 85025; 85027; 85610; 85730; 86850; 86900; 86901; 93005; 93010; 93798; 94002; 94640; J0282; J0670; J0690; J1100; J1160; J1642; J1644; J1815; J1885; J1940; J2001; J2150; J2250; J2260; J2440; J2704; J2720; J3010; J3370; J3475; J3480; J3490; J7050; J7070; J7512; J7620; J7626; P9045; S0017; S0028

== ENCOUNTER 2018-11-14 14:00 | Outpatient (CLI) | payer MEDICARE, OTHER ==
--- NOTE | 2018-11-14 14:22 | RAD ---
XR Chest Pa Lat @ POB History: Chest pain on breathing R07.1 Comparison: Radiograph October 23, 2018 Findings: Heart size mildly enlarged. Moderate left effusion, moderate in size. Left basilar atelecta tic changes. Mild scarring both lung apices. No pneumothorax. Impression: Cardiomegaly with layering moderate left pleural effusion and accompanying basilar compre ssive atelectasis.
== END 2018-11-14 14:01 | disposition home or self-care (01) ==
LOC: RAD 14:00
PROVIDERS: ATTEND Thoracic Surgery (Cardiothoracic Vascular Surgery)
DX: R07.1 Chest pain on breathing (principal); J98.11 Atelectasis; J90 Pleural effusion, not elsewhere classified; I51.7 Cardiomegaly
CPT/HCPCS: 71046

== ENCOUNTER 2019-02-07 12:08 | Outpatient (CLI) | payer MEDICARE, OTHER ==
[2019-02-07 12:29] LABS: #Basophils 0.1 thou/uL (0.0-0.2); #Lymphocytes 0.7 thou/uL (1.20-3.40); #Monocytes 0.7 thou/uL (0.11-0.59); #Neutrophils 11.6 thou/uL (1.40-6.50); %Basophils 0.5 % (0.0-1.0); %Eosinophils 0.3 % (0.0-10.0); %Lymphocytes 5.3 % (21.0-51.0); %Monocytes 5.2 % (0.0-10.0); %Neutrophils 88.6 % (42.0-75.0); Hemoglobin 9.7 g/dL (14.0-18.0); Mean Corpuscular HGB CONC 32.4 g/dL (32.0-36.0); Mean Corpuscular Hemoglobin 27.4 pg (27.0-31.0); Mean Corpuscular Volume 84.7 fL (78.0-98.0); Mean Platelet Volume 6.6 fL (7.4-10.4); Platelet Count 234 thou/uL (130-400); RBC Distribution Width 16.1 % (11.5-14.5); Red Blood Cell (RBC) Count 3.54 mill/uL (4.70-6.10); White Blood Cell (WBC) Count 13.1 thou/uL (4.8-10.8)
[2019-02-07 12:33] LABS: Bilirubin Negative (Negative); Blood, Urine Moderate (Negative); Clarity Hazy (Clear); Glucose, Urine (Dipstick) Negative (Negative); Leukocyte Negative (Negative); Nitrite Negative (Negative); Protein, Urine (Dipstick) Negative (Neg-Trace); Urobilinogen > or = 8.0 mg/dL (Less than 2)
[2019-02-07 12:37] LABS: Bacteria/HPF 1+ HPF (None Seen); Squamous Epithelial None Seen HPF (0-3); WBC/HPF 0-3 HPF (0-3)
[2019-02-07 12:38] LABS: ALT (SGPT) 66 U/L (8-55); AST (SGOT) 68 U/L (5-34); Albumin 3.1 g/dL (3.4-4.8); Alkaline Phosphatase 131 U/L (40-150); Anion Gap 14 mmol/L (10-20); BUN (Urea Nitrogen) 16 mg/dL (8.4-25.7); Bilirubin, Total 0.9 mg/dL (0.2-1.2); Calc. Creatinine Clearance 0 mL/min (70-130); Calcium 9.2 mg/dL (7.8-10.44); Carbon Dioxide 30 mmol/L (23-31); Cardiac Risk 8.8 (Less than 4.5); Chloride 94 mmol/L (98-107); Cholesterol 141 mg/dl (< 200 Desired); Estimated GFR-MDRD 74; Globulin 4.5 g/dL (2.4-3.5); Glucose 120 mg/dL (80-115); HDL Cholesterol 16 mg/dL (>60 Neg Risk); LDL Cholesterol, Calculated 97 mg/dL; Potassium 3.9 mmol/L (3.5-5.1); Protein, Total 7.6 g/dL (5.8-8.1); Sodium 134 mmol/L (136-145); Triglycerides 142 mg/dL (Less than 150)
--- NOTE | 2019-02-07 12:39 | RAD ---
EXAM: XR Chest Pa Lat STANDARD PROVIDED CLINICAL HISTORY: COPD COMPARISON: 11/14/2018 FINDINGS: Cardiac and mediastinal silhouette is unchanged in appearance. Median sternotomy changes and cardiac valve replacement are noted. Small bilateral pleural effusions, decreased with respect to prior. No focal consolidation or pneumothorax apparent. IMPRESSION: Small bilateral pleural effusions, decreased with respect to prior.
[2019-02-07 13:01] LABS: PSA-Asymptomatic (SCREENING) 3.74 ng/mL (0-4.0); Thyroid Stimulating Hormone 2.7057 uIU/mL (0.35-4.94)
== END 2019-02-07 12:09 | disposition home or self-care (01) ==
LOC: SCSRAD 12:08
PROVIDERS: ATTEND Family Medicine
DX: J44.9 Chronic obstructive pulmonary disease, unspecified (principal); R07.9 Chest pain, unspecified; E03.9 Hypothyroidism, unspecified; E78.00 Pure hypercholesterolemia, unspecified; R50.9 Fever, unspecified; J90 Pleural effusion, not elsewhere classified
CPT/HCPCS: 36415; 71046; 80053; 80061; 81001; 84403; 84443; 85025; 87086; G0103

== ENCOUNTER 2019-03-09 09:37 | Inpatient (IN) | payer MEDICARE, OTHER ==
[2019-03-09 10:13] LABS: Hemoglobin 8.6 g/dL (14.0-18.0); Mean Corpuscular HGB CONC 31.4 g/dL (32.0-36.0); Mean Corpuscular Hemoglobin 27.4 pg (27.0-31.0); Mean Corpuscular Volume 87.4 fL (78.0-98.0); Mean Platelet Volume 6.6 fL (7.4-10.4); Platelet Count 149 thou/uL (130-400); RBC Distribution Width 19.4 % (11.5-14.5); Red Blood Cell (RBC) Count 3.12 mill/uL (4.70-6.10); White Blood Cell (WBC) Count 10.5 thou/uL (4.8-10.8)
[2019-03-09] MEDS ORDERED: Furosemide 20 MG/2 ML VIAL ONE (10:16)
[2019-03-09 10:23] LABS: ALT (SGPT) 33 U/L (8-55); AST (SGOT) 40 U/L (5-34); Albumin 3.4 g/dL (3.4-4.8); Alkaline Phosphatase 115 U/L (40-110); Anion Gap 16 mmol/L (10-20); BUN (Urea Nitrogen) 13 mg/dL (8.4-25.7); Bilirubin, Total 0.7 mg/dL (0.2-1.2); CK (CPK) 22 U/L (30-200); Calc. Creatinine Clearance 0 mL/min (70-130); Calcium 9.3 mg/dL (7.8-10.44); Carbon Dioxide 23 mmol/L (23-31); Chloride 99 mmol/L (98-107); Estimated GFR-MDRD 55; Globulin 4.4 g/dL (2.4-3.5); Glucose 128 mg/dL (80-115); Potassium 4.7 mmol/L (3.5-5.1); Protein, Total 7.8 g/dL (5.8-8.1); Sodium 133 mmol/L (136-145)
[2019-03-09 10:26] LABS: #Basophils 0.1 thou/uL (0.0-0.2); #Eosinphils 0.1 thou/uL (0.0-0.7); #Lymphocytes 0.5 thou/uL (1.20-3.40); #Monocytes 0.6 thou/uL (0.11-0.59); #Neutrophils 9.3 thou/uL (1.40-6.50); %Basophils 0.6 % (0.0-1.0); %Eosinophils 0.8 % (0.0-10.0); %Monocytes 5.4 % (0.0-10.0); %Neutrophils 88.2 % (42.0-75.0); Hypochromia SLIGHT = 6-15 cells (100X) (0-5/hpf); MDiff Complete? YES; Platelet Morphology Comment Appears Adequate; Polychromasia SLIGHT = 2-3 cells (100X) (0-2/hpf); Stomatocytes SLIGHT = 2-5 cells (100X) (0-1/hpf)
[2019-03-09 10:41] LABS: CKMB 1.4 ng/mL (0-6.6)
--- NOTE | 2019-03-09 12:20 | RAD ---
FRONTAL VIEW CHEST: Date: 03/09/19 COMPARISON: 10/23/18. CLINICAL HISTORY: Shortness of breath. Edema. FINDINGS: There is interstitial prominence bilaterally. Bilateral pleural fluid is present, right greater than left. Cardiac silhouette and pulmonary vasculature are enlarged. IMPRESSION: Evidence of decompensated CHF with pulmonary edema and pleural fluid. POS: C
[2019-03-09] MEDS ORDERED: ISOVUE-370 76%-LOCM 1 ML ONE (13:19)
[2019-03-09 13:27] LABS: Troponin I 0.064 ng/mL (< 0.028)
[2019-03-09] MEDS ORDERED: Enoxaparin Sodium 30 MG/0.3 ML SYRINGE ONE (13:35)
[2019-03-09] MEDS ORDERED: Enoxaparin Sodium 60 MG/0.6 ML SYRINGE ONE (13:35)
[2019-03-09] MEDS ORDERED: Acetaminophen 325 MG TAB PO PRN (14:12)
[2019-03-09] MEDS ORDERED: Ondansetron PF 4 MG/2 ML Vial IVP PRN (14:12)
[2019-03-09] MEDS ORDERED: Ondansetron ODT 4 MG TAB SL PRN (14:12)
[2019-03-09] MEDS ORDERED: Furosemide 40 MG/4 ML VIAL SLOW IVP SCH (16:30)
[2019-03-09] MEDS ORDERED: Dextrose 50% Abboject 50 ML SYRINGE SLOW IVP PRN (16:33)
[2019-03-09] MEDS ORDERED: HumaLOG 300 UNITS/3 ML VIAL SC PRN (16:33)
[2019-03-09] MEDS ORDERED: Dextrose 5% in Water 1,000 ML IV PRN (16:33)
[2019-03-09 16:38] LABS: Troponin I 0.073 ng/mL (< 0.028)
[2019-03-09 17:02] LABS: Iron 34 ug/dL (65-175); Iron Binding Capacity, Total 285 mcg/dL (261-462)
[2019-03-09 18:09] LABS: Reticulocyte Count 5.1 % (0.5-1.5)
--- NOTE | 2019-03-09 18:21 | PDOC.FPRHP ---
- History of Present Illness Chief Complaint: SOB History of Present Illness: Mr. Collins is a 69 y/o male with a recent Aortic Valve Replacement and 3-vessel CABG in October 2018 who presents to the ED with his with a CC of worsening SOB. The patient states that his SOB has been worsening in the months since his surgery, and that his finally convinced him to come to the hospital. Associated symptoms include NINA and sporadic swelling of the lower extremities. Mr. Collins denies headaches, changes in vision, changes in hearing, worsening cough or sputum production, chest pain or palpitations, ABD pain or N/ V/D, dysuria, syncopal episodes, or fever, chills or night sweats. - Allergies/Adverse Reactions Allergies Allergy/AdvReac Type Severity Reaction Status Date / Time No Known Allergies Allergy Verified 10/18/18 11:14 - Home Medications Medication Instructions Recorded Confirmed Type Amlodipine [Norvasc] 1 tab PO DAILY 10/18/18 03/09/19 History Atenolol 50 mg PO HS 10/18/18 03/09/19 History Folic Acid 0.4 mg PO DAILY 10/18/18 03/09/19 History Gabapentin 1 tab PO TID 10/18/18 03/09/19 History Icosapent Ethyl [Vascepa] 1 tab PO BID 10/18/18 03/09/19 History Niacin [Slo-Niacin] 500 mg PO DAILY 10/18/18 03/09/19 History Pravastatin Sodium 1 tab PO HS 10/18/18 03/09/19 History Testosterone 1 applic TOP DAILY 10/18/18 03/09/19 History Aspirin [Ecotrin Regular Strength] 325 mg PO DAILY #120 tab 10/25/18 03/09/19 Rx Albuterol Sulfate [Proair HFA] 2 puff INH Q6HR PRN 03/09/19 03/09/19 History Bupropion HCl [buPROPion HCl XL] 150 mg PO QAM 03/09/19 03/09/19 History Furosemide [Lasix] 20 mg PO DAILY 03/09/19 03/09/19 History Ipratropium/Albuterol Sulfate 2 puff INH QID 03/09/19 03/09/19 History Potassium Chloride [Klor-Con 10] 10 meq PO DAILY 03/09/19 03/09/19 History - History PMHx: Aortic Valve Replacement, 3-Vessel CABG, TICO PSHx: Aortic Valve Replacement FHx: Non-Contributory Social: Extensive Tobacco Abuse (Cigars), 2-3 servings of EtOH per night, denies drug abuse - Review of Systems General: reports: fatigue. denies: fever/chills (The patient's feel that he may be experiencing chills due to the amount of clothing that he typically wears in their home.), weight/appetite/sleep changes, night sweats Eyes: denies: vision changes ENT: reports: nasal congestion Respiratory: reports: congestion. denies: cough, shortness of breath, exercise intolerance Cardiovascular: reports: edema (Most recent episode of LE edema was solely isolated to the right LE.), paroxysmal nocturnal dyspnea. denies: chest pain, palpitation Gastrointestinal: denies: nausea, vomiting, diarrhea, constipation, abdominal pain, GI bleeding Genitourinary: denies: dysuria, discharge Skin: denies: rashes Musculoskeletal: reports: stiffness, swelling, arthritis/arthralgias. denies: pain Neurological: denies: syncope, weakness - Vital signs BP: [155/70] HR: [70] RR: [22] Tmax: [98.2] Pox: [95]% on [3L Nasal Canula] Wt : [91 kg] - Physical Exam Constitutional: awake, alert and oriented, well developed, other (Patient was obviously short of breath, but was able to speak in 3-5 word sentences) HEENT: normocephalic and atraumatic, PERRLA, EOMI, conjunctiva clear, no scleral icterus, grossly normal vision, grossly normal hearing, normal nasal mucosa, MMM, oropharynx clear, good dention Neck: supple, FROM, no LAD, no thyromegaly Chest: no-tender to palpation, no lesions, other (Sternotomy scar visible) Heart: RRR, normal S1/S2, no murmurs/rubs/gallops, pulses present, no edema Lungs: CTAB, no respiratory distress, good air movement, no rales/rhonchi, no wheezing, no retractions Abdomen: soft, non-tender, no masses/distention, no hernias Musculoskeletal: normal structure, normal tone, ROM grossly normal Neurological: no focal deficit, CN II-XII intact Skin: no rash/lesions Heme/Lymphatic: no unusual bruising or bleeding, no purpura, no petechia FMR H&P: Results - Labs Result Diagrams: 03/10/19 09:54 03/09/19 10:00 Lab results: WBC 10.5 thou/uL (4.8-10.8) 03/09/19 10:00 Hgb 8.6 g/dL (14.0-18.0) L 03/09/19 10:00 Hct 27.3 % (42.0-52.0) L 03/09/19 10:00 MCV 87.4 fL (78.0-98.0) 03/09/19 10:00 Plt Count 149 thou/uL (130-400) 03/09/19 10:00 Neutrophils % 88.2 % (42.0-75.0) H 03/09/19 10:00 Sodium 133 mmol/L (136-145) L 03/09/19 10:00 Potassium 4.7 mmol/L (3.5-5.1) 03/09/19 10:00 Chloride 99 mmol/L (98-107) 03/09/19 10:00 Carbon Dioxide 23 mmol/L (23-31) 03/09/19 10:00 BUN 13 mg/dL (8.4-25.7) 03/09/19 10:00 Creatinine 1.30 mg/dL (0.7-1.3) 03/09/19 10:00 Glucose 128 mg/dL (80-115) H 03/09/19 10:00 Calcium 9.3 mg/dL (7.8-10.44) 03/09/19 10:00 Total Bilirubin 0.7 mg/dL (0.2-1.2) 03/09/19 10:00 AST 40 U/L (5-34) H 03/09/19 10:00 ALT 33 U/L (8-55) 03/09/19 10:00 Alkaline Phosphatase 115 U/L (40-110) H 03/09/19 10:00 Creatine Kinase 22 U/L (30-200) L 03/09/19 10:00 CK-MB (CK-2) 1.4 ng/mL (0-6.6) 03/09/19 10:00 B-Natriuretic Peptide 794.7 pg/mL (0-100) H 03/09/19 10:00 Serum Total Protein 7.8 g/dL (5.8-8.1) 03/09/19 10:00 Albumin 3.4 g/dL (3.4-4.8) 03/09/19 10:00 FMR H&P: A/P - Plan 1. Acute CHF Exacerbationn -Progressive SOB, NINA and LE edema is worrisome in light of extensive CV history -BNP: 795 -CXR: Evidence of decompensated CHF, per Radiology -Echo: Pending -Initiate Lasix regimen for fluid diuresis -Initiate DuoNebs and O2 supplementation to relieve SOB -Strict I&O -Dr. Gill (Cardiology) consulted, awaiting recommendations 2. LE Edema -Most likely of CV etiology, but concerning based on +Emma Sign -D-Dimer: 2.77 -Venous US: Negative for DVTs -CT Angio: Negative for PEs -Continue to monitor closely Dispo: Patient admitted to Telemetry Floor based on extensive CV history. Fluid diuresis ongoing. Await Cardiology recommendations and tailer plan of care accordingly. Expected LOS > 48H FMR H&P: Upper Level - Pertinent history Mr George is a 69yo male with pmh of TICO, HLD, HTN, DMII, CAD s/p CABG x2v and Aortic valve replacement presenting as a transfer from [facility] ED. He went to ED at the recommendation of pts PCP for unilateral leg edema that they noticed today. Pt reports increased work of breathing since Aortic Valve replacement and CABG in October of this year but it has worsened over the last 2 weeks to the point he is not able to participate with PT especially when he exerts himself. Denies orthopnea, fever, chills. - Pertinent findings PE: General: Able to speak in sentences but increased work of breathing CV: RRR Pulm: In some distress but not requiring oxygen Abdomen: Soft, nontender Extremities: mild edema, pulses intact A&P: HFrEF in acute exacerbation - BNP 795, CXR : Evidence of decompensated CHF. Edema on exam and increased work of breathing after 20mg IV Lasix. - Will consult fire safety director Dr Pepe - Echo ordered - s/p Lasix 20mg IV in ED, continue IV diuresis but increase dose to 40mg IV tonight and tomorrow AM and monitor daily BMPs. Adjust dose accordingly by monitoring strict I&Os - Daily wts and HH diet with fluid restriction - Continue home medications - Admit to medical Initial Unilateral leg swelling -LE US to rule out DVT Elevated D-Dimer -Ordered CTA to eval for PE Indeterminate Troponin -0.08, continue to trend -EKG no acute changes Hx of Afib -Currently in NSR TICO -CPAP at HS For other chronic medical problems please refer to internet marketing coordinator assessment and plan for details. - Plan Date/Time: 03/09/191820 I, Belle Camejo, have evaluated this patient and agree with findings/plan as outlined by internet marketing coordinator resident. Pertinent changes/additions are listed here. Addendum - Attending - Attending Attestation Date/Time: 03/09/19 164 I personally evaluated the patient and discussed the management with Dr. Marte. I agree with the History, Examination, Assessment and Plan documented above with any addition or exceptions noted below. Patient presents with shortness of breath and lower extremity edema with the right worse than the left yesterday but now both are swollen. He had a recent 3V CABG with aortic valve replacement. He has been taking 20 mg of lasix. BNP is elevated as is d-dimer. Will start iv lasix, get echo. Consult pt's fire safety director, Dr Pepe. Will get lower extremity dopplers and a CTA to rule out dvt.
[2019-03-09] MEDS ORDERED: PROVENTIL INHALER 6.7 G (200 INHALATIONS) INH PRN (19:53)
--- NOTE | 2019-03-09 20:07 | ULT ---
BILATERAL LOWER EXTREMITY VENOUS DUPLEX EXAM: Indications: Pain and edema. FINDINGS: Veins in both lower extremities show normal blood flow and compression. Veins evaluated with color do ppler, spectral analysis and compression. No evidence of DVT identified in either lower extremity. IMPRESSION: Negative bilateral lower extremity venous study. POS: OFF
[2019-03-09] MEDS: Gabapentin 100 MG CAP PO SCH (20:25)
[2019-03-09] MEDS: Pravastatin Sodium 40 MG TAB PO SCH (20:25)
[2019-03-09] MEDS: Atenolol 50 MG TAB PO SCH (20:25)
--- NOTE | 2019-03-09 20:30 | CT ---
CTA CHEST WITH CONTRAST: Technique: Pulmonary angio protocol followed with multiplanar reconstruction. Indications: Shortness of breath, elevated D-Dimer. FINDINGS: Pulmonary arteries show adequate opacification. No evidence of pulmonary embolus identified. Thoracic aorta shows atherosclerotic change. No dissection or aneurysm. Mediastinum unremarkable. There are moderate sized bilateral pleural effusions and bibasilar atelectasis. There is streaky infi ltrate in the left upper and lower lobe consistent with inflammatory process. Images through the upper abdomen unremarkable. There are tiny gallstones which are partially imaged i n the gallbladder. IMPRESSION: 1. No evidence of pulmonary embolus. 2. Bilateral pleural effusions with compressive atelectasis. Streaky infiltrate in the lingula of the left upper lobe and in the left lower lobe suggests inflammatory/infectious process. 3. Evidence of cholelithiasis. POS: OFF
--- NOTE | 2019-03-10 06:17 | PDOC.FM ---
- Subjective Subjective: Pt w/ no complaints overnight. Breathing better. Swelling in legs better. Worried about urine since recently had UTI requiring 2 different abx outpatient and finished abx on sunday. Otherwise, no questions. - Objective MAR Reviewed: Yes Vital Signs & Weight: Vital Signs (12 hours) Temp Pulse Resp BP Pulse Ox 03/09/19 23:00 98.6 F 61 20 151/68 H 98 03/09/19 22:30 63 20 03/09/19 22:29 63 20 03/09/19 20:25 70 03/09/19 19:25 98.2 F 70 22 H 155/70 H 95 Weight Weight 91.626 kg I&O: 03/08/19 03/09/19 03/10/19 06:59 06:59 06:59 Intake Total 500 Output Total 800 Balance -300 Result Diagrams: 03/09/19 10:00 03/09/19 10:00 Phys Exam - Physical Examination Constitutional: NAD Respiratory: no rales, clear to auscultation bilateral dullness to percussion over RLL Cardiovascular: RRR Gastrointestinal: soft, non-tender, positive bowel sounds (distended and tympanitic) Musculoskeletal: edema present (1+) Psychiatric: normal affect, A&O x 3 Skin: no rash Dx/Plan (1) S/P aortic valve replacement Code(s): Z95.2 - PRESENCE OF PROSTHETIC HEART VALVE Status: Acute (2) Hyperlipidemia Code(s): E78.5 - HYPERLIPIDEMIA, UNSPECIFIED Status: Chronic (3) Hypertension Code(s): I10 - ESSENTIAL (PRIMARY) HYPERTENSION Status: Chronic (4) TICO (obstructive sleep apnea) Code(s): G47.33 - OBSTRUCTIVE SLEEP APNEA (ADULT) (PEDIATRIC) Status: Chronic (5) S/P CABG (coronary artery bypass graft) Code(s): Z95.1 - PRESENCE OF AORTOCORONARY BYPASS GRAFT Status: Chronic (6) CHF exacerbation Code(s): I50.9 - HEART FAILURE, UNSPECIFIED Status: Acute - Plan Plan: 69-yo male Acute CHF Exacerbation -BNP: 795 -CXR: Evidence of decompensated CHF, per Radiology -Echo: Pending -Initiate Lasix regimen for fluid diuresis -Initiate DuoNebs and O2 supplementation to relieve SOB -Strict I&O -Dr. Gill (Cardiology) consulted, awaiting recommendations - hypervolemic on exam today LE Edema likely 2/2 CHF exacerbation -D-Dimer: 2.77 -Venous US: Negative for DVTs -CT Angio: Negative for PEs -Continue to monitor closely Anemia of chronic disease - likely 2/2 to CHF based on iron studies but also possible hemolysis - LDH, haptoglobin, smear pending VTE PPx: LVX Dispo: tele inpatient
[2019-03-10] MEDS ORDERED: Furosemide 20 MG TAB PO SCH (09:00)
[2019-03-10] MEDS: Amlodipine 10 MG TAB PO SCH (09:04)
[2019-03-10] MEDS: Bupropion 150 MG XL TAB PO SCH (09:05)
[2019-03-10] MEDS: Furosemide 40 MG/4 ML VIAL SLOW IVP SCH (09:05)
[2019-03-10] MEDS: Aspirin 325 mg Enteric Coated Tablet PO SCH (09:05)
[2019-03-10] MEDS: Folic Acid 1 MG TAB PO SCH (09:05)
[2019-03-10] MEDS: Gabapentin 100 MG CAP PO SCH ×3 (09:06→20:17)
[2019-03-10] MEDS: Potassium Chloride 10 MEQ TAB PO SCH (09:06)
[2019-03-10] MEDS: Icosapent Ethyl [Vascepa] 1 GM PO SCH ×2 (09:16→17:26)
[2019-03-10 10:12] LABS: #Eosinphils 0.1 thou/uL (0.0-0.7); #Lymphocytes 0.6 thou/uL (1.20-3.40); #Monocytes 0.6 thou/uL (0.11-0.59); #Neutrophils 7.3 thou/uL (1.40-6.50); %Eosinophils 0.8 % (0.0-10.0); %Lymphocytes 7.1 % (21.0-51.0); Hemoglobin 8.5 g/dL (14.0-18.0); Mean Corpuscular Hemoglobin 28.3 pg (27.0-31.0); Mean Corpuscular Volume 88.3 fL (78.0-98.0); Mean Platelet Volume 7.5 fL (7.4-10.4); Platelet Count 142 thou/uL (130-400); White Blood Cell (WBC) Count 8.6 thou/uL (4.8-10.8)
[2019-03-10 10:25] LABS: Hemoglobin 8.5 g/dL (14.0-18.0); Mean Corpuscular HGB CONC 32.3 g/dL (32.0-36.0); Mean Corpuscular Hemoglobin 28.5 pg (27.0-31.0); Mean Corpuscular Volume 88.2 fL (78.0-98.0); Mean Platelet Volume 7.8 fL (7.4-10.4); Platelet Count 138 thou/uL (130-400); RBC Distribution Width 17.6 % (11.5-14.5); Red Blood Cell (RBC) Count 2.98 mill/uL (4.70-6.10); White Blood Cell (WBC) Count 8.5 thou/uL (4.8-10.8)
[2019-03-10 11:42] LABS: Band 12 % (5-11); Eosinophils 4 % (0-10); Lymphocytes 8 % (21-51); MDiff Complete? YES; Monocytes 6 % (0-10); Neutrophil 70 % (42-75); Platelet Morphology Comment Appears Adequate; Polychromasia SLIGHT = 2-3 cells (100X) (0-2/hpf)
[2019-03-10 13:13] VITALS: BMI 27.8
[2019-03-10] MEDS: Atenolol 50 MG TAB PO SCH (20:17)
[2019-03-10] MEDS: Pravastatin Sodium 40 MG TAB PO SCH (20:18)
[2019-03-11 05:48] LABS: Hemoglobin 8.1 g/dL (14.0-18.0); Mean Corpuscular HGB CONC 31.6 g/dL (32.0-36.0); Mean Corpuscular Hemoglobin 28.4 pg (27.0-31.0); Mean Corpuscular Volume 89.9 fL (78.0-98.0); Platelet Count 144 thou/uL (130-400); RBC Distribution Width 17.7 % (11.5-14.5); Red Blood Cell (RBC) Count 2.83 mill/uL (4.70-6.10); White Blood Cell (WBC) Count 9.1 thou/uL (4.8-10.8)
--- NOTE | 2019-03-11 05:56 | PDOC.FM ---
- Subjective Subjective: Pt reports improvement in SOB symptoms. On 3L O2. very worried about UTI and prostatitis. VSS, NAEON. on CPAP overnight for TICO. Does not like getting lasix at night because he must take off CPAP, it beeps and wakes up , every time he has to urinate. - Objective MAR Reviewed: Yes Vital Signs & Weight: Vital Signs (12 hours) Temp Pulse Resp BP Pulse Ox 03/11/19 04:00 97.8 F 59 L 20 121/58 L 95 03/10/19 21:43 64 16 03/10/19 20:13 98.2 F 66 20 117/56 L 95 03/10/19 18:43 62 12 93 L Weight Admit Weight 90.446 kg Weight 91.172 kg I&O: 03/09/19 03/10/19 03/11/19 06:59 06:59 06:59 Intake Total 920 960 Output Total 2250 850 Balance -1330 110 Result Diagrams: 03/11/19 05:22 03/11/19 05:22 Radiology: CXR showing mild improvement in R pleural effusion. Official read pending. Phys Exam - Physical Examination Constitutional: NAD HEENT: moist MMs Respiratory: no wheezing, clear to auscultation bilateral Cardiovascular: RRR, no significant murmur Gastrointestinal: soft, non-tender (mildly distended), positive bowel sounds Musculoskeletal: pulses present, edema present (2+ up to mid-anne bilaterally, worse than yesterday) Neurological: non-focal Psychiatric: normal affect, A&O x 3 Skin: no rash Dx/Plan (1) S/P aortic valve replacement Code(s): Z95.2 - PRESENCE OF PROSTHETIC HEART VALVE Status: Acute (2) Hyperlipidemia Code(s): E78.5 - HYPERLIPIDEMIA, UNSPECIFIED Status: Chronic (3) Hypertension Code(s): I10 - ESSENTIAL (PRIMARY) HYPERTENSION Status: Chronic (4) TICO (obstructive sleep apnea) Code(s): G47.33 - OBSTRUCTIVE SLEEP APNEA (ADULT) (PEDIATRIC) Status: Chronic (5) S/P CABG (coronary artery bypass graft) Code(s): Z95.1 - PRESENCE OF AORTOCORONARY BYPASS GRAFT Status: Chronic (6) CHF exacerbation Code(s): I50.9 - HEART FAILURE, UNSPECIFIED Status: Acute - Plan Plan: 69-yo male Acute CHF Exacerbation - BNP: 795 - CXR: Evidence of decompensated CHF, per Radiology. Repeat CXR today showed mild improvement. - Echo: EF 40-45%, mod MR, mod w/ porcine valve - DuoNebs and O2 supplementation to relieve SOB - Strict I&O - Dr. Gill (Cardiology) consulted, made him NPO, awaiting recs. - Continues to be hypervolemic on exam today, due for Lasix 40mg IV this AM LE Edema likely 2/2 CHF exacerbation -D-Dimer: 2.77 -Venous US: Negative for DVTs -CT Angio: Negative for PEs -Continue to monitor closely Normocytic normochromic Anemia likely due to Anemia of chronic disease vs. hemolysis - likely 2/2 to CHF based on iron studies but also possible hemolysis. Acute blood loss unlikely. Hgb is stable - LDH elevated. No abnormal cells such as schistocytes on smear. - haptoglobin pending - FOBT still needing to be collected Recent UTI s/p PO abx x2 - pt and very worried about UTI - consider repeat UA here or outpatient TICO HTN HLD - continue home medications and home CPAP VTE PPx: LVX Dispo: tele inpatient
[2019-03-11 06:11] LABS: Anion Gap 13 mmol/L (10-20); BUN (Urea Nitrogen) 12 mg/dL (8.4-25.7); Calc. Creatinine Clearance 98 mL/min (70-130); Calcium 8.5 mg/dL (7.8-10.44); Carbon Dioxide 25 mmol/L (23-31); Chloride 97 mmol/L (98-107); Estimated GFR-MDRD 82; Glucose 106 mg/dL (80-115); Potassium 3.7 mmol/L (3.5-5.1); Sodium 131 mmol/L (136-145)
[2019-03-11] MEDS: Potassium Chloride 10 MEQ TAB PO SCH (09:45)
[2019-03-11] MEDS: Amlodipine 10 MG TAB PO SCH (09:45)
[2019-03-11] MEDS: Bupropion 150 MG XL TAB PO SCH (09:45)
[2019-03-11] MEDS: Gabapentin 100 MG CAP PO SCH ×3 (09:45→21:31)
[2019-03-11] MEDS: Folic Acid 1 MG TAB PO SCH (09:45)
[2019-03-11] MEDS: Furosemide 40 MG/4 ML VIAL SLOW IVP SCH ×2 (09:46→15:14)
[2019-03-11] MEDS: Icosapent Ethyl [Vascepa] 1 GM PO SCH ×2 (09:46→17:00)
[2019-03-11] MEDS: Aspirin 325 mg Enteric Coated Tablet PO SCH (09:52)
--- NOTE | 2019-03-11 10:32 | RAD ---
CHEST 1 VIEW PORTABLE: Date: 03/11/19 HISTORY: Follow-up congestive heart failure. COMPARISON: 03/09/19. FINDINGS: Monitor leads overlie the chest. Postop midline sternotomy. Increased linear and interstitial marking s bilaterally with some blunting of the costophrenic angles, but showing definite improvement from . No new process. IMPRESSION: Improving congestion and pleural effusions. No significant new process. POS: TPC
--- NOTE | 2019-03-11 11:00 | CON ---
DATE OF CONSULTATION: 03/10/2019 REASON FOR CONSULTATION: Shortness of breath, fatigue, and weakness. HISTORY OF PRESENT ILLNESS: Mr. Collins is a 69-year-old gentleman, who I was seen and evaluated in the past. He recently presented with the above. He recently underwent aortic valve replacement, in addition to 2-vessel bypass. This was in October of 2018. He did develop postoperative atrial fibrillation that was prolonged. He was placed on amiodarone therapy, in addition to Eliquis. He was seen and evaluated in December. It was felt to go ahead and stop amiodarone therapy and place him on a 3-week event recorder. If the event recorder was negative, I would then stop Eliquis. His hemoglobin has remained low in the 9 to 10 range. His EVR was negative for significant atrial fibrillation. It was therefore decided to go ahead and stop anticoagulation therapy. He recently presented with increased shortness of breath. He also complained of lower extremity edema, in addition to PND. His hemoglobin was 8. He also gives a history of having a complicated UTI and has been placed on multiple antibiotics. He has had subjective fevers at home. He has had one fever while in the hospital. PAST MEDICAL HISTORY: CAD status post bypass surgery and aortic valve replacement, hypertension, obstructive sleep apnea, and osteoarthritis. HOME MEDICATIONS: Include; 1. Potassium. 2. Combivent. 3. Lasix. 4. Aspirin. 5. Testosterone. 6. Gabapentin. 7. Atenolol. 8. Pravastatin. 9. Folic acid. 10. Vascepa. 11. Amlodipine. 12. Telmisartan/hydrochlorothiazide. 13. Meloxicam. SOCIAL HISTORY: No current tobacco or alcohol use. ALLERGIES: NONE. REVIEW OF SYSTEMS: A 10-point review of systems is reviewed as above, otherwise negative. PHYSICAL EXAMINATION: VITAL SIGNS: Blood pressure 157/68, pulse 60, and temperature 98.1. GENERAL: Patient is a pleasant male, who is in no acute distress. The patient appears their stated age. NEUROLOGIC: The patient is alert and oriented x3 with no focal neurologic deficits. HEENT: Sclerae without icterus. Mouth has moist mucous membranes with normal pallor. NECK: No JVD. Carotid upstroke brisk. No bruits bilaterally. LUNGS: Clear to auscultation with unlabored respirations. BACK: No scoliosis or kyphosis. CARDIAC: Regular rate and rhythm with normal S1 and S2. No S3 or S4 noted. No significant rubs, murmurs, thrills, or gallops noted throughout the precordium. PMI is not displaced. There is no parasternal heave. ABDOMEN: Soft, nontender, nondistended. No peritoneal signs present. No hepatosplenomegaly. No abnormal striae. EXTREMITIES: 2+ femoral and 2+ dorsalis pedis pulses. No cyanosis, clubbing, or edema. SKIN: No gross abnormalities. PERTINENT LABORATORY DATA: Hemoglobin 8.1, down from 8.5. Creatinine 0.92. Troponin 0.073. Echo Doppler shows LVEF 40% to 45% with increased gradients noted to the aortic valve. Aortic valve not well visualized. It appears calcified. Gradient suggests moderate aortic stenosis. He did have a 21 mm valve placed. IMPRESSION: 1. Shortness of breath. 2. Malaise and fatigue. 3. Coronary artery disease. 4. Status post bypass surgery. 5. Moderate aortic stenosis. 6. Anemia. RECOMMENDATIONS: Mr. Collins has stopped his Eliquis two weeks ago. I am concerned about his continued anemia, which may be contributing to shortness of breath in addition to increased gradients noted to the aortic valve. It seems unusual to have increased gradients in such a short-time span. I would therefore recommend JOHNNY. I discussed procedure in full detail with he and his . Risks include not limited to the following: Damage to teeth, mouth, or back of throat, damage to esophagus requiring emergency surgery as well as reaction to medication. All questions answered. Given the above, the patient agreed to proceed with above procedure. and Ms. Collins have been very dissatisfied with our care while in the hospital. They had more concerns about his n.p.o. status versus his cardiac status. I had a long discussion with them about their concerns and also reiterated to them, we were doing our absolute best to try and to assess why he is having so much difficulty. Job ID: [id number]
[2019-03-11] MEDS ORDERED: PROPOFOL 200 MG/20 ML VIAL ONE (11:13)
[2019-03-11 11:39] LABS: Bilirubin Negative (Negative); Blood, Urine 1+ (Negative); Clarity Clear (Clear); Glucose, Urine (Dipstick) Normal (Negative); Leukocyte Negative Leu/uL (Negative); Nitrite Negative (Negative); Protein, Urine (Dipstick) 20 mg/dL (Neg-Trace); Squamous Epithelial 0-3 HPF (0-3); Urobilinogen 3 mg/dL (Less than 2)
[2019-03-11] MEDS ORDERED: PROPOFOL 40 ML ONE (11:44)
[2019-03-11 11:52] LABS: Bacteria/HPF Rare-Few HPF (None Seen)
[2019-03-11] MEDS ORDERED: cefTRIAXone\\ROCEPHIN 2 GM in Sodium Chloride 0.9% 100 ML IVPB SCH (16:00)
[2019-03-11] MEDS ORDERED: Vancomycin HCl 1.75 GM in Sodium Chloride 0.9% 500 ML IVPB SCH (17:00)
--- NOTE | 2019-03-11 20:48 | PDOC.EVN ---
Event Note - Event Note Event Note: Vegetqtion noted on the LVOT side of the aortic avalve with a likley perivalvular abscess present Consult Dr. Ames and Dr. Rutledge Discussed with . Likely will need redo AVR
--- NOTE | 2019-03-11 21:00 | CON ---
DATE OF CONSULTATION: REASON FOR CONSULTATION: Possible endocarditis. HISTORY OF PRESENT ILLNESS: A 69-year-old, history of coronary artery disease and aortic stenosis status post double bypass and aortic valve replacement with a porcine valve a few months ago who has developed symptoms of hematuria a few days before admission, associated with lower extremity swelling. He was given antimicrobial therapy by his primary care physician and subsequently noticed fever and dyspnea on exertion. He was brought in and admitted. Initial BP 140/70, pulse 73, respirations 21, temperature 98, O2 saturation 98. Lungs sounds were clear. Heart examination was described as within normal limits. There was 2 to 3+ edema in lower extremities. Initial labs with a white cell count 10.5, hemoglobin 8.6, platelets 149,000, 88% neutrophils. Creatinine was 1.3 and now is 0.92. AST 40 , total bilirubin 0.7, ALT 33, alkaline phosphatase 115, LDH 221. CK was 22. BNP 794. Albumin 3.4. Transthoracic echocardiogram, EF 45%, moderately dilated left atrium, moderate MR, moderate aortic stenosis. The patient had a CT of chest with angiogram with no pulmonary embolism. Bilateral pleural effusions, some streaky infiltrates. A JOHNNY was done this morning and it showed possible perivalvular abscess around the prosthetic valve and a possible vegetation as well. Currently, Mr. Collins is awake. He denies headaches. No sore throat, odynophagia, or dysphagia. No back pain. Mild dyspnea. No chest pain. No abdominal pain. Having episodes of liquid diarrhea. Usually when he goes to void, he is continent. ALLERGIES: NONE. FAMILY HISTORY: Noncontributory. SOCIAL HISTORY: Drinks up to 5 drinks per day. Current smoker, mostly cigars. MEDICATIONS: 1. Proventil. 2. DuoNeb. 3. Norvasc. 4. Ecotrin. 5. Tenormin. 6. Wellbutrin. 7. Dextrose. 8. Folvite. 9. Lasix. 10. Neurontin. 11. Insulin. 12. Pravachol. PHYSICAL EXAMINATION: VITAL SIGNS: T-max 99.7, BP 140/60, pulse 64, respirations 16-23. SKIN: Peripheral IV access. No Rosa catheter. No lymphadenopathy. HEENT: Ocular movements, conjugate. Sclerae, white. Pupils are equal. Oral cavity, normal. NECK: Supple. LUNGS: Symmetric. Clear breath sounds. No jugular vein distention. HEART: S1 and S2. Regular rate with a systolic aortic murmur. ABDOMEN: Soft, not distended or tender. No ascites. No bladder distention. EXTREMITIES: 2+ edema in lower extremities. Strength in upper and lower extremities is 5/5. Cognitive function appears to be intact. LABORATORY DATA: Sodium 131, creatinine 0.92, ferritin 84. White cell count is down to 9.1, hemoglobin 8.1, MCV 89, platelets 144. Urinalysis with 4-6 wbc's. Urine culture, final results [id number] CFUs of mixed enteric lisy. Two sets of blood cultures pending at this time. ASSESSMENT: 1. Coronary artery disease. 2. Aortic valve replacement a few months ago. 3. Worsening dyspnea, fever, and abnormalities noted on JOHNNY suggestive of ring abscess and vegetation in the prosthetic valve. DISCUSSION: The patient has 1 major criteria and one minor criteria suggestive of endocarditis. We will wait on culture results. If those are remain negative, then submit next generation sequencing DNA test to identify the organism. Continue antimicrobial coverage for the time being and consult Cardiovascular Surgery since he might need redo procedure. Job ID: [id number] [facility]
[2019-03-11] MEDS: Atenolol 50 MG TAB PO SCH (21:31)
[2019-03-11] MEDS: Pravastatin Sodium 40 MG TAB PO SCH (21:31)
[2019-03-11] MEDS: Rifampin 300 MG CAP PO SCH (21:32)
--- NOTE | 2019-03-12 01:36 | CON ---
DATE OF CONSULTATION: 03/11/2019 CHIEF COMPLAINT: Shortness of breath. HISTORY OF PRESENT ILLNESS: Mr. Collins is a 69-year-old man who was admitted with progressive shortness of breath on exertion. He was found to have progressively worsening anemia associated with anticoagulation. He had been on Eliquis for atrial fibrillation following cardiac surgery back in October at which time he had a two-vessel coronary artery bypass graft and a bioprosthetic valve placement by Dr. Rutledge. GI was consulted for further evaluation of the anemia. The patient has had no nausea or vomiting. No abdominal pain. No diarrhea or constipation. No visible blood in the stool. No black stools or red stools. He underwent transesophageal echo today that showed possible abscess at the aortic valve and vegetation. PAST MEDICAL HISTORY: Coronary artery disease, obstructive sleep apnea, on CPAP, hypertension, osteoarthritis. PAST SURGICAL HISTORY: Coronary artery bypass graft along with bioprosthetic aortic valve replacement. He has never had prior EGD or colonoscopy. FAMILY HISTORY: Negative for GI malignancy. SOCIAL HISTORY: He smokes mostly cigars. He does drink a few beers per day. No drugs. ALLERGIES: NO KNOWN DRUG ALLERGIES. MEDICATIONS: Prior to admission; 1. Pravastatin. 2. Testosterone topical. 3. Niacin. 4. Ipratropium with albuterol. 5. Vascepa. 6. Gabapentin. 7. Furosemide. 8. Folic acid. 9. Bupropion. 10. Atenolol. 11. Aspirin. 12. Amlodipine. 13. Albuterol. 14. Previously, he had been on Eliquis. REVIEW OF SYSTEMS: Negative x10 systems reviewed except as stated in the history of present illness. PHYSICAL EXAMINATION: VITAL SIGNS: Temperature 98.4, pulse 60, blood pressure 156/68. GENERAL: He is in no acute distress. Alert and oriented x3. HEENT: Eyes have no scleral icterus. Oropharynx is clear without lesions. No cervical or supraclavicular lymphadenopathy. LUNGS: Clear to auscultation bilaterally. HEART: Regular rate and rhythm without murmur. ABDOMEN: Soft, nontender, and nondistended. Bowel sounds are present. EXTREMITIES: Trace lower extremity edema. LABORATORY DATA: White blood cell count 9.1, hemoglobin is 8.1, hemoglobin back on February 07 was 9.7, platelets 144. No recent INR. Creatinine 0.92. Iron 34, TIBC 285, ferritin 84.85, bilirubin 0.7, AST 40, ALT 33, alkaline phosphatase 115. BNP 794, albumin 3.4. IMPRESSION: 1. Anemia without overt bleeding. The iron studies may be more suggestive of anemia of chronic disease and might have a combination with the iron deficiency as well. He has had no overt bleeding. He has never had upper or lower endoscopy. Ideally, we would perform EGD and colonoscopy to evaluate this further. However, given the lack of overt bleeding currently, Cardiology is recommending treatment for the endocarditis and possible abscess near the bioprosthetic valve first. 2. Obstructive sleep apnea. RECOMMENDATIONS: 1. Start proton pump inhibitor. 2. We will await further assessment by Cardiac Surgery and Cardiology and Infectious Disease. GI can be available if needed regarding further workup of the anemia from a GI standpoint. Please call if we can help. Job ID: [id number]
[2019-03-12] MEDS ORDERED: Vancomycin HCl 1.25 GM in Sodium Chloride 0.9% 250 ML 250 ML IVPB SCH (05:00)
[2019-03-12] MEDS: Furosemide 40 MG/4 ML VIAL SLOW IVP SCH ×2 (05:21→15:37)
--- NOTE | 2019-03-12 05:52 | PDOC.FM ---
- Subjective Subjective: Pt reports he is feeling well this morning. Checked his understanding of his medical problems. His was not present. He understands he has an infection in his heart and is receiving abx. He knows he has anemia. Denies pain on urination, difficulty urinating, chest pain, abdominal pain, and SOB. He is not wearing oxygen this AM, but he indicates he likes wearing it for comfort. Appetite remains good. Obeying fluid restriction. Attempted to collect FOBT yesterday since pt has not had bowel movement. No stool available to collect on BRIEN. - Objective MAR Reviewed: Yes Vital Signs & Weight: Vital Signs (12 hours) Temp Pulse Resp BP BP Pulse Ox 03/12/19 04:00 98.1 F 75 20 156/68 H 93 L 03/12/19 02:54 72 18 93 L 03/12/19 02:13 97 03/12/19 00:00 73 155/66 H 03/11/19 22:44 60 21 H 96 03/11/19 22:43 60 21 H 97 03/11/19 21:31 72 159/68 H 03/11/19 19:56 98.4 F 72 20 156/68 H 96 03/11/19 19:29 77 16 95 Weight Admit Weight 90.446 kg Weight 90.991 kg I&O: 03/10/19 03/11/19 03/12/19 06:59 06:59 06:59 Intake Total 920 960 700 Output Total 2250 850 2100 Balance -1330 110 -1400 Result Diagrams: 03/12/19 06:12 03/12/19 06:12 Phys Exam - Physical Examination Constitutional: NAD HEENT: PERRLA, moist MMs Respiratory: no wheezing, clear to auscultation bilateral he does have some upper airway wheezing at rest Cardiovascular: RRR (3/6 holosystolic murmur) Gastrointestinal: soft, non-tender, no distention, positive bowel sounds (obese) Musculoskeletal: pulses present, edema present (2+ pitting edema, mild improvement from yesterday) Neurological: non-focal, moves all 4 limbs Psychiatric: normal affect, A&O x 3 Skin: no rash, normal turgor Dx/Plan (1) S/P aortic valve replacement Code(s): Z95.2 - PRESENCE OF PROSTHETIC HEART VALVE Status: Acute (2) Hyperlipidemia Code(s): E78.5 - HYPERLIPIDEMIA, UNSPECIFIED Status: Chronic (3) Hypertension Code(s): I10 - ESSENTIAL (PRIMARY) HYPERTENSION Status: Chronic (4) TICO (obstructive sleep apnea) Code(s): G47.33 - OBSTRUCTIVE SLEEP APNEA (ADULT) (PEDIATRIC) Status: Chronic (5) S/P CABG (coronary artery bypass graft) Code(s): Z95.1 - PRESENCE OF AORTOCORONARY BYPASS GRAFT Status: Chronic (6) CHF exacerbation Code(s): I50.9 - HEART FAILURE, UNSPECIFIED Status: Acute (7) Endocarditis Code(s): I38 - ENDOCARDITIS, VALVE UNSPECIFIED Status: Acute (8) Hyponatremia Code(s): E87.1 - HYPO-OSMOLALITY AND HYPONATREMIA Status: Acute - Plan Plan: 69-yo male Acute CHF Exacerbation Endocarditis Hx of AV replacement w/ bioprosthesis and 2-vessel CABG in October 2018 - BNP: 795 - CXR: Evidence of decompensated CHF, per Radiology. Repeat CXR 03/11 showed mild improvement. - Echo: EF 40-45%, mod MR, mod w/ porcine valve - JOHNNY: perivalvular abscess and vegetation - Blood Cx pending - DuoNebs and O2 supplementation to relieve SOB - Strict I&O - Dr. Gill (Cardiology) consulted, appreciate recs - Hui (ID) consulted, appreciate recs. Started vancomycin and rifampin. - Will consult Dr. Rutledge (CV surgery), likely will need to redo valve per Cardiology - Lasix 40mg bid LE Edema likely 2/2 CHF exacerbation -D-Dimer: 2.77 -Venous US: Negative for DVTs -CT Angio: Negative for PEs -Continue to monitor closely Normocytic normochromic Anemia likely due to Anemia of chronic disease vs. hemolysis - likely 2/2 to CHF based on iron studies but also possible hemolysis. Acute blood loss unlikely. Hgb is stable - LDH elevated. No abnormal cells such as schistocytes on smear. - haptoglobin pending - FOBT still needing to be collected. Will await bowel movement. - GI consulted, appreciate recs. PPI started. Pt may need EGD/Colonoscopy in future since he has never had them, but we must address his heart problems first. Hyponatremia, acute - Sodium has downtrended that past couple of days - Pt is fluid restricted. Will avoid salt tabs due to heart condition. - Encourage gatorade for fluids in place of water. Recent UTI s/p PO abx x2 - pt and very worried about UTI - Repeat UA: 1+ blood, rare bacteria, 4-6 RBC and WBC - Pt on abx for endocarditis. Persistent blood on UA likely warrants further workup. Will address heart problems first. TICO HTN HLD - continue home medications and home CPAP VTE PPx: LVX GI PPx: pantoprazole Dispo: tele inpatient
[2019-03-12 06:29] LABS: Hemoglobin 8.2 g/dL (14.0-18.0); Mean Corpuscular HGB CONC 31.1 g/dL (32.0-36.0); Mean Corpuscular Hemoglobin 27.6 pg (27.0-31.0); Mean Corpuscular Volume 88.9 fL (78.0-98.0); Mean Platelet Volume 7.3 fL (7.4-10.4); Platelet Count 140 thou/uL (130-400); RBC Distribution Width 17.6 % (11.5-14.5); Red Blood Cell (RBC) Count 2.95 mill/uL (4.70-6.10)
[2019-03-12 06:48] LABS: Anion Gap 10 mmol/L (10-20); BUN (Urea Nitrogen) 10 mg/dL (8.4-25.7); Calc. Creatinine Clearance 93 mL/min (70-130); Calcium 8.5 mg/dL (7.8-10.44); Carbon Dioxide 27 mmol/L (23-31); Chloride 95 mmol/L (98-107); Estimated GFR-MDRD 78; Glucose 117 mg/dL (80-115); Potassium 3.4 mmol/L (3.5-5.1); Sodium 129 mmol/L (136-145)
[2019-03-12] MEDS: Aspirin 325 mg Enteric Coated Tablet PO SCH (08:32)
[2019-03-12] MEDS: Folic Acid 1 MG TAB PO SCH (08:32)
[2019-03-12] MEDS: Bupropion 150 MG XL TAB PO SCH (08:32)
[2019-03-12] MEDS: Amlodipine 10 MG TAB PO SCH (08:32)
[2019-03-12] MEDS: Gabapentin 100 MG CAP PO SCH ×3 (08:33→21:22)
[2019-03-12] MEDS: Icosapent Ethyl [Vascepa] 1 GM PO SCH ×2 (08:33→17:16)
[2019-03-12] MEDS: Potassium Chloride 10 MEQ TAB PO SCH (08:33)
[2019-03-12 09:52] LABS: INR-International Normal Ratio 1.1; Prothrombin Time 14.1 SEC (12.0-14.7)
[2019-03-12] MEDS: Rifampin 300 MG CAP PO SCH ×2 (11:01→21:26)
[2019-03-12] MEDS: Enoxaparin Sodium 40 MG/0.4 ML SYRINGE SC SCH (11:01)
--- NOTE | 2019-03-12 12:50 | PQF ---
DATE: 03-12-19 ATTN: DR. EBONI BLOCK Please exercise your independent, professional judgment in responding to the clarification form. Clinical indicators are provided on the bottom of this form for your review Please check appropriate box(s): HEART FAILURE: A. ACUITY [ ] Acute [ X] Acute on Chronic [ ] Chronic B. TYPE [ X] Systolic / HFrEF [ ] Diastolic / HFpEF [ ] Combined Systolic / Diastolic [ ] Hypertensive Heart and Kidney disease [ ] Hypertensive Heart Disease [ ] Hypertensive Kidney Disease [ ] Other diagnosis [ ] Unable to determine In addition, please specify: Present on Admission (POA): [ X] Yes [ ] No [ ] Unable to determine For continuity of documentation, please document condition throughout progress notes and discharge summary. Thank You. CLINICAL INDICATORS - SIGNS / SYMPTOMS / LABS / RESULTS AND LOCATION IN EMR: ER DX 03-09-19: CHF, ANEMIA UNSPECIFIED, FLUID RETENTION H&P 03-09-19: ACUTE CHF EXACERBATION BNP 03-09-19: 794.7 RISKS FACTORS / RESULTS AND LOCATION IN EMR: H&P 03-09-19: HX AORTIC VALVE REPLACEMENT, 3 VESSEL CABG, TICO, SMOKER, TICO, HTN, CAD TREATMENTS / RESULTS AND LOCATION IN EMR: ER NOTES 03-09-19: LASIX IV ECHO 03-10-19 (This form is maintained as a part of the permanent medical record) 2014 [employer]. All Rights Reserved [email or web address] Office: [phone] [facility]
--- NOTE | 2019-03-12 15:14 | PRG ---
DATE OF SERVICE: 03/12/2019 SUBJECTIVE: The patient is feeling a little better. He denies any respiratory symptoms, and is voiding without difficulty. No abdominal pain. No vomiting. OBJECTIVE: VITAL SIGNS: Temperature max 98.4, blood pressure 140/65, pulse 77. GENERAL: Awake, alert, oriented. LUNGS: Symmetric, clear breath sounds. HEART: S1 and S2 with soft aortic murmur. ABDOMEN: Soft, not distended. LABORATORY DATA: White cell count 10.0, hemoglobin 8.2, platelets 140. Creatinine 0.96. Microbiology with E faecalis, two sets of blood cultures. ASSESSMENT AND DISCUSSION: Coronary artery disease, aortic valve replacement, now Enterococcus faecalis endocarditis. We will switch him to ampicillin and gentamicin. Probably treat him for at least 4 to 6 weeks and then switch him to ampicillin and Rocephin for the remainder of the course of a total of 3 months, so one month with ampicillin and gentamicin and then another two months with ampicillin and Rocephin to decrease the risk of severe kidney side effects. In view of the annular abscess noted, he will likely need a valve removal and replacement. Job ID: [id number]
--- NOTE | 2019-03-12 16:14 | CON ---
DATE OF CONSULTATION: 03/12/2019 SUBJECTIVE: Mr. Collins is doing well. No current complaints. OBJECTIVE: VITAL SIGNS: Blood pressure 143/65, pulse 77, and temperature afebrile. GENERAL: Patient is a pleasant male who is in no acute distress. The patient appears their stated age. NEUROLOGIC: The patient is alert and oriented x3 with no focal neurologic deficits. HEENT: Sclerae without icterus. Mouth has moist mucous membranes with normal pallor. NECK: No JVD. Carotid upstroke brisk. No bruits bilaterally. LUNGS: Clear to auscultation with unlabored respirations. BACK: No scoliosis or kyphosis. CARDIAC: Regular rate and rhythm with normal S1 and S2. No S3 or S4 noted. No significant rubs, murmurs, thrills, or gallops noted throughout the precordium. PMI is not displaced. There is no parasternal heave. ABDOMEN: Soft, nontender, nondistended. No peritoneal signs present. No hepatosplenomegaly. No abnormal striae. EXTREMITIES: 2+ femoral and 2+ dorsalis pedis pulses. No cyanosis, clubbing, or edema. SKIN: No gross abnormalities. LABORATORY DATA: Positive blood cultures x2. Hemoglobin 8.2. IMPRESSION: 1. Endocarditis with likely abscess. 2. Coronary artery disease. 3. Status post bypass surgery. 4. Status post aortic valve replacement. RECOMMENDATIONS: The JOHNNY was reviewed with Dr. Sunil Oliva. It did appear to be a filling defect noted around the aortic valve strongly suggestive of abscess. There was also a small vegetation present on the LVOT side. Dr. Ames has been consulted. Antibiotic therapy has been started. Due to the difficulty on treatment of abscess, he will likely need AVR. I discussed this with both he and his . I have also consulted Dr. Marc Rutledge. Further recommendations on timing will be per Dr. Marc Rutledge, in addition to Dr. Jose mAes. Job ID: [id number]
[2019-03-12] MEDS: Ampicillin 2 GM in Sodium Chloride 0.9% 100 ML IVPB SCH ×2 (17:08→21:22)
--- NOTE | 2019-03-12 19:04 | CON ---
DATE OF CONSULTATION: 03/12/2019 HISTORY OF PRESENT ILLNESS: Mr. Collins is a 69-year-old gentleman, who in October underwent aortic valve replacement with #23 Inspiris bioprosthetic valve and coronary artery bypass grafting x2 with bypass grafts to the PDA and OM. For about 6 weeks, Mr. Collins has not felt well. He was diagnosed with a urinary tract infection and treated with outpatient oral antibiotics for 2 separate courses. He had a swollen leg and was advised to go to the emergency department over the weekend. On Sunday, he was admitted to the hospital from the emergency department. Since admission, he has had an echocardiogram and transesophageal echocardiogram performed. 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 On the transesophageal exam, there was also concern for a periannular abscess. I cannot see this on the transesophageal echocardiogram and we will review this with Dr. Pepe. Since admission, the patient has been afebrile and actually feels quite well at this point. He has grown enterococcus out of his blood cultures and has been seen by Dr. Ames. Dr. Ames has him on ampicillin 2 g IV q.4, rifampin 300 mg p.o. b.i.d., and gentamicin 60 mg q.8. Currently, Mr. Collins has no complaints and had been anxiously awaiting my arrival as he had been told he was going to have to have his valve removed in the near future. PAST MEDICAL HISTORY: 1. Coronary artery disease. 2. Aortic stenosis. 3. Hypertension. 4. Dyslipidemia. PAST SURGICAL HISTORY: Aortic valve replacement with #23 Inspiris bioprosthetic valve and coronary artery bypass grafting x2. SOCIAL HISTORY: He does not use tobacco or alcohol. He is , accompanied by his for review. ALLERGIES: NONE. PHYSICAL EXAMINATION: GENERAL: This is a well-developed, well-nourished male, resting comfortably in bed. VITAL SIGNS: Height 5 feet 11 inches and weight is 200 pounds. BSA is 2.13. Temperature is 98.7, pulse is 77 and regular, blood pressure is 120/59. HEENT: Sclerae nonicteric. Pupils are equal bilaterally. NECK: Supple without bruit. CHEST: Clear bilaterally. HEART: Rhythm is regular. His sternum has healed nicely. There is no movement. He has a soft systolic ejection murmur that is very difficult to hear. ABDOMEN: Soft and nontender. EXTREMITIES: No edema. He has no swelling of either extremity. Venous Doppler has been performed and is negative for DVT. LABORATORY DATA: Of note, his white blood cell count is 10.0, hemoglobin is 8.2, platelet count 140,000. Creatinine is 0.96, potassium is 3.4. ASSESSMENT AND PLAN: Endocarditis with ? periannular abscess. I have reviewed his echo with my partners and none of us can really get a good feel for where the abscess that is being read is located. I will review this with Dr. Pepe in the very near future. He is currently growing Enterococcus faecalis from 2 blood cultures. He has been on appropriate antibiotics. My hopes would be that antibiotic therapy would clear his bloodstream and subsequently clear his valve. I would prefer to give this a course of treatment rather than jumping right into redo aortic valve replacement, although I will certainly review his echocardiogram with Dr. Pepe in the near future. Job ID: [id number]
[2019-03-12] MEDS: Pravastatin Sodium 40 MG TAB PO SCH (21:22)
[2019-03-12] MEDS: Atenolol 50 MG TAB PO SCH (21:26)
[2019-03-12] MEDS ORDERED: Gentamicin 80 MG/2 ML VIAL IM SCH (22:00)
[2019-03-13] MEDS: Ampicillin 2 GM in Sodium Chloride 0.9% 100 ML IVPB SCH ×6 (00:01→21:06)
[2019-03-13] MEDS: Furosemide 40 MG/4 ML VIAL SLOW IVP SCH ×2 (05:15→14:26)
[2019-03-13 05:26] LABS: #Eosinphils 0.2 thou/uL (0.0-0.7); #Lymphocytes 0.5 thou/uL (1.20-3.40); #Monocytes 0.6 thou/uL (0.11-0.59); #Neutrophils 6.7 thou/uL (1.40-6.50); %Lymphocytes 6.4 % (21.0-51.0); %Neutrophils 83.6 % (42.0-75.0); Mean Corpuscular HGB CONC 31.3 g/dL (32.0-36.0); Mean Corpuscular Volume 89.4 fL (78.0-98.0); Mean Platelet Volume 7.6 fL (7.4-10.4); Platelet Count 139 thou/uL (130-400); RBC Distribution Width 17.3 % (11.5-14.5); Red Blood Cell (RBC) Count 2.86 mill/uL (4.70-6.10)
[2019-03-13 05:46] LABS: Anion Gap 7 mmol/L (10-20); BUN (Urea Nitrogen) 9 mg/dL (8.4-25.7); Calc. Creatinine Clearance 104 mL/min (70-130); Calcium 8.5 mg/dL (7.8-10.44); Carbon Dioxide 31 mmol/L (23-31); Chloride 96 mmol/L (98-107); Estimated GFR-MDRD Greater than 90; Glucose 104 mg/dL (80-115); Potassium 3.4 mmol/L (3.5-5.1); Sodium 131 mmol/L (136-145); Vancomycin, Trough 8.1 ug/mL
--- NOTE | 2019-03-13 06:01 | PDOC.FM ---
- Subjective Subjective: Pt & agree he is feeling well this morning. No SOB, no wheezing. No chest pain. Discussed blood culture and plan between CV surg and cardiology. - Objective MAR Reviewed: Yes Vital Signs & Weight: Vital Signs (12 hours) Temp Pulse Resp BP BP Pulse Ox 03/13/19 04:00 98 F 67 20 133/63 93 L 03/12/19 22:34 66 18 96 03/12/19 21:26 73 136/60 03/12/19 21:18 98.4 F 73 18 136/60 92 L Weight Admit Weight 90.446 kg Weight 88.496 kg I&O: 03/11/19 03/12/19 03/13/19 06:59 06:59 06:59 Intake Total 960 1250 1220 Output Total 850 2650 2400 Balance 110 -1400 -1180 Result Diagrams: 03/13/19 04:24 03/13/19 04:24 Phys Exam - Physical Examination Constitutional: NAD HEENT: moist MMs Respiratory: no rales, no rhonchi, wheezing present (mild over RLL), clear to auscultation bilateral Cardiovascular: RRR (3/6 systolic murmur of RUSB) Gastrointestinal: soft, non-tender, positive bowel sounds Musculoskeletal: edema present (1+ improved) Neurological: non-focal Psychiatric: normal affect, A&O x 3 Skin: no rash, normal turgor Dx/Plan (1) S/P aortic valve replacement Code(s): Z95.2 - PRESENCE OF PROSTHETIC HEART VALVE Status: Acute (2) Hyperlipidemia Code(s): E78.5 - HYPERLIPIDEMIA, UNSPECIFIED Status: Chronic (3) Hypertension Code(s): I10 - ESSENTIAL (PRIMARY) HYPERTENSION Status: Chronic (4) TICO (obstructive sleep apnea) Code(s): G47.33 - OBSTRUCTIVE SLEEP APNEA (ADULT) (PEDIATRIC) Status: Chronic (5) S/P CABG (coronary artery bypass graft) Code(s): Z95.1 - PRESENCE OF AORTOCORONARY BYPASS GRAFT Status: Chronic (6) CHF exacerbation Code(s): I50.9 - HEART FAILURE, UNSPECIFIED Status: Acute (7) Endocarditis Code(s): I38 - ENDOCARDITIS, VALVE UNSPECIFIED Status: Acute (8) Hyponatremia Code(s): E87.1 - HYPO-OSMOLALITY AND HYPONATREMIA Status: Acute - Plan Plan: 69-yo male found to have endocarditis: Acute CHF Exacerbation Endocarditis Hx of AV replacement w/ bioprosthesis and 2-vessel CABG in October 2018 - BNP: 795. CXR: Evidence of decompensated CHF, per Radiology. Repeat CXR 03/11 showed mild improvement. - Echo: EF 40-45%, mod MR, mod w/ porcine valve - JOHNYN: ? perivalvular abscess, vegetation - DuoNebs and O2 supplementation to relieve SOB - Strict I&O - Dr. Gill (Cardiology) consulted, appreciate recs - Hui (ID) consulted, appreciate recs. BCx 2 of 2 positive for enterococcus faecaelis. Amp+Gent for 4-6 weeks followed by 2 months Amp+rocephin. Will need PICC line senior living - Dr. Rutledge (CV surgery) consulted - Lasix 40mg bid - CV surg and cardiology to discuss JOHNNY for further mgmt. Will follow up. LE Edema likely 2/2 CHF exacerbation -D-Dimer: 2.77 -Venous US: Negative for DVTs -CT Angio: Negative for PEs -Continue to monitor closely Normocytic normochromic Anemia likely due to Anemia of chronic disease vs. hemolysis - likely 2/2 to CHF based on iron studies but also possible hemolysis. Acute blood loss unlikely. Hgb is stable - LDH elevated. No abnormal cells such as schistocytes on smear. - haptoglobin normal - FOBT still needing to be collected. Will await bowel movement. - GI consulted, appreciate recs. PPI started. Pt may need EGD/Colonoscopy in future since he has never had them, but we must address his heart problems first. Follow up w/ scopes outpatient. Hyponatremia, acute - Sodium has downtrended that past couple of days - Pt is fluid restricted. Will avoid salt tabs due to heart condition. - Encourage gatorade for fluids in place of water. - Likely 2/2 volume overload, continue lasix and monitoring of sodium. Recent UTI s/p PO abx x2 - pt and very worried about UTI - Repeat UA: 1+ blood, rare bacteria, 4-6 RBC and WBC - Pt on abx for endocarditis. Persistent blood on UA likely warrants further workup. Will address heart problems first. Urine culture no growth. TICO HTN HLD - continue home medications and home CPAP VTE PPx: LVX GI PPx: pantoprazole Dispo: tele inpatient
--- NOTE | 2019-03-13 07:19 | OP ---
DATE OF PROCEDURE: 03/12/2019 PREPROCEDURE DIAGNOSES: Fever and aortic valve replacement. POSTPROCEDURE DIAGNOSES: Endocarditis and likely abscess. PROCEDURE PERFORMED: Transesophageal echocardiography. The patient was consented for the procedure. Propofol was used for conscious sedation the probe passed easily into the esophagus. FINDINGS: Aortic valve well visualized. There appears to be a small vegetation present on the LVOT side of the aortic valve, suggesting vegetation. There also appears to be a hypodense area noted around the prosthetic aortic valve suggesting abscess. The mitral valve was well visualized. No vegetation or mass present. The tricuspid valve also visualized with no mass or vegetation present. IMPRESSION: 1. Endocarditis on the LVOT side of the aortic valve. 2. Likely abscess noted in the perivalvular region. 3. This was discussed with Dr. Sunil Oliva, who also agrees with the findings. Job ID: [id number]
[2019-03-13] MEDS: Icosapent Ethyl [Vascepa] 1 GM PO SCH ×2 (08:45→16:53)
[2019-03-13] MEDS: Bupropion 150 MG XL TAB PO SCH (08:46)
[2019-03-13] MEDS: Aspirin 325 mg Enteric Coated Tablet PO SCH (08:46)
[2019-03-13] MEDS: Potassium Chloride 10 MEQ TAB PO SCH (08:46)
[2019-03-13] MEDS: Gabapentin 100 MG CAP PO SCH ×3 (08:46→21:07)
[2019-03-13] MEDS: Amlodipine 10 MG TAB PO SCH (08:46)
[2019-03-13] MEDS: Folic Acid 1 MG TAB PO SCH (08:46)
[2019-03-13] MEDS: Enoxaparin Sodium 40 MG/0.4 ML SYRINGE SC SCH (08:50)
--- NOTE | 2019-03-13 11:48 | SPC ---
Ultrasound and Fluoroscopic guided left upper extremity single lumen PICC placement: 08/27/2018 HISTORY: Need for central vascular access. FINDINGS: Informed consent obtained prior to the procedure. Left antecubital fossa prepped and draped in normal sterile fashion. Skin overlying the left basilic vein anesthetized with 1% buffered lidocaine. With direct sonographic guidance, vascular access is obtained via the left basilic vein and an 0.018in wire was advanced to the cavoatrial junction. Intravascular length is calculated at 43 cm and of the PICC is cut accord ingly. Needle is removed and replaced with a peel-away sheath. The PICC was advanced over the wire. Wire and peel-away sheath were removed. The tip of the catheter overlies the cavoatrial junction. The port flushes well and the catheter is ready for use. Exposure data: 0 minutes of fluoroscopic time 16 mGy per centimeter squared IMPRESSION: Successful ultrasound guided placement of a left upper extremity PICC.
[2019-03-13] MEDS: Rifampin 300 MG CAP PO SCH ×2 (12:04→21:08)
--- NOTE | 2019-03-13 17:02 | PRG ---
DATE OF SERVICE: 03/13/2019 SUBJECTIVE: Mr. Collins is feeling better. Denies any headaches. No visual symptoms. No dyspnea or cough. No chest pain. No abdominal pain. OBJECTIVE: VITAL SIGNS: Temperature max 98. GENERAL: Appears in no distress. Awake, alert, and oriented. LUNGS: Symmetric air entry. HEART: S1 and S2, regular rate with a soft aortic murmur. ABDOMEN: Soft. Not distended. EXTREMITIES: Moves extremities equally with 1+ edema in extremities. LABORATORY DATA: White cell count 8.0, hemoglobin 8.0, platelets 139, with 82% neutrophils. Creatinine 0.84. CRP 7.61. Two sets of blood cultures with Enterococcus faecalis. The JOHNNY showed endocarditis at the left ventricular outflow tract side of the aortic valve and likely abscess in the perivalvular region. ASSESSMENT AND DISCUSSION: Coronary artery disease with aortic valve replacement, Enterococcus faecalis endocarditis with perivalvular abscess, currently on ampicillin and gentamicin. We will continue monitoring gentamicin trough levels and frequent monitoring of his creatinine. CV surgeon, Dr. Rutledge has been consulted and he rather treat the patient conservatively at this point in time. Job ID: [id number]
--- NOTE | 2019-03-13 17:45 | PRG ---
DATE OF SERVICE: 03/13/2019 SUBJECTIVE: Mr. Collins is doing well. He feels much better. PICC line was placed. IV antibiotics have been started. OBJECTIVE: VITAL SIGNS: Blood pressure 124/66, pulse 79, and temperature 97.8. LUNGS: Clear to auscultation. HEART: Regular rate and rhythm. ABDOMEN: Soft, nontender, and nondistended. EXTREMITIES: No edema. IMPRESSION: 1. Endocarditis. 2. Coronary artery disease. 3. Status post valve replacement. RECOMMENDATIONS: I reviewed the films with Dr. Marc Rutledge. There was a hypoechoic area noted. This was during the review. Dr. Rutledge felt this is more consistent with a sinus of Valsalva. This certainly could be the case. It is a small region. The patient's status has improved. I did discuss this with both Mr. Collins and his . Could certainly proceed with repeat AVR, but would be of no benefit if this is truly a sinus of Valsalva. Again, if AVR was not performed and this is a true abscess, could also be very detrimental. At this point, I have discussed risks and benefits of proceeding with AVR versus continued IV antibiotics. Decided to proceed with IV antibiotics with a repeat JOHNNY in the next several weeks. Otherwise, from my standpoint, I have no further recommendations. Plan is to follow up with me in the next 1 to 2 weeks in the office. I will plan on a followup JOHNNY. We will sign off. Job ID: [id number]
[2019-03-13] MEDS ORDERED: Heparin 1,000 UNITS/ML VIAL ONE (18:00)
[2019-03-13] MEDS: Atenolol 50 MG TAB PO SCH (21:06)
[2019-03-13] MEDS: Pravastatin Sodium 40 MG TAB PO SCH (21:07)
[2019-03-14] MEDS: Ampicillin 2 GM in Sodium Chloride 0.9% 100 ML IVPB SCH ×5 (00:01→16:37)
[2019-03-14 05:03] LABS: #Eosinphils 0.2 thou/uL (0.0-0.7); #Lymphocytes 0.6 thou/uL (1.20-3.40); #Monocytes 0.7 thou/uL (0.11-0.59); #Neutrophils 5.3 thou/uL (1.40-6.50); %Eosinophils 3.2 % (0.0-10.0); %Lymphocytes 8.8 % (21.0-51.0); %Monocytes 9.6 % (0.0-10.0); %Neutrophils 78.5 % (42.0-75.0); Hemoglobin 8.1 g/dL (14.0-18.0); Mean Corpuscular HGB CONC 32.5 g/dL (32.0-36.0); Mean Corpuscular Hemoglobin 28.9 pg (27.0-31.0); Mean Corpuscular Volume 88.9 fL (78.0-98.0); Mean Platelet Volume 7.5 fL (7.4-10.4); Platelet Count 135 thou/uL (130-400); RBC Distribution Width 16.8 % (11.5-14.5); White Blood Cell (WBC) Count 6.7 thou/uL (4.8-10.8)
[2019-03-14 05:17] LABS: Anion Gap 11 mmol/L (10-20); BUN (Urea Nitrogen) 10 mg/dL (8.4-25.7); Calc. Creatinine Clearance 104 mL/min (70-130); Calcium 8.4 mg/dL (7.8-10.44); Carbon Dioxide 27 mmol/L (23-31); Chloride 96 mmol/L (98-107); Estimated GFR-MDRD Greater than 90; Glucose 100 mg/dL (80-115); Potassium 3.5 mmol/L (3.5-5.1); Sodium 130 mmol/L (136-145)
--- NOTE | 2019-03-14 05:39 | PDOC.FM ---
- Subjective Subjective: Pt is feeling well this AM. He and his understand the plan of care. would prefer home health nurses to come give abx. Discussed potential of going to SNF in [place]. Denies fevers, chest pain, SOB. - Objective MAR Reviewed: Yes Vital Signs & Weight: Vital Signs (12 hours) Temp Pulse Resp BP BP Pulse Ox 03/14/19 05:00 96 03/14/19 03:19 98.2 F 64 18 161/72 H 96 03/14/19 00:41 66 14 96 03/13/19 23:08 62 16 95 03/13/19 23:07 62 16 95 03/13/19 21:06 65 145/66 H 03/13/19 19:30 98.1 F 65 20 145/66 H 94 L Weight Admit Weight 90.446 kg Weight 88.496 kg I&O: 03/12/19 03/13/19 03/14/19 06:59 06:59 06:59 Intake Total 1250 1220 Output Total 2650 2400 Balance -1400 -1180 Result Diagrams: 03/14/19 04:32 03/14/19 04:32 Phys Exam - Physical Examination Constitutional: NAD HEENT: moist MMs Respiratory: no wheezing fine rales RLL, good air movement improved from previous Cardiovascular: RRR (3/6 systolic murmur) Gastrointestinal: soft, non-tender, positive bowel sounds Musculoskeletal: pulses present, edema present (minimal pitting edema, improved from yesterday) Neurological: non-focal, moves all 4 limbs Psychiatric: normal affect, A&O x 3 Skin: no rash Dx/Plan (1) S/P aortic valve replacement Code(s): Z95.2 - PRESENCE OF PROSTHETIC HEART VALVE Status: Acute (2) Hyperlipidemia Code(s): E78.5 - HYPERLIPIDEMIA, UNSPECIFIED Status: Chronic (3) Hypertension Code(s): I10 - ESSENTIAL (PRIMARY) HYPERTENSION Status: Chronic (4) TICO (obstructive sleep apnea) Code(s): G47.33 - OBSTRUCTIVE SLEEP APNEA (ADULT) (PEDIATRIC) Status: Chronic (5) S/P CABG (coronary artery bypass graft) Code(s): Z95.1 - PRESENCE OF AORTOCORONARY BYPASS GRAFT Status: Chronic (6) CHF exacerbation Code(s): I50.9 - HEART FAILURE, UNSPECIFIED Status: Acute (7) Endocarditis Code(s): I38 - ENDOCARDITIS, VALVE UNSPECIFIED Status: Acute (8) Hyponatremia Code(s): E87.1 - HYPO-OSMOLALITY AND HYPONATREMIA Status: Acute - Plan Plan: Acute CHF Exacerbation Endocarditis Hx of AV replacement w/ bioprosthesis and 2-vessel CABG in October 2018 - BNP: 795. CXR: Evidence of decompensated CHF, per Radiology. Repeat CXR 03/11 showed mild improvement. - Echo: EF 40-45%, mod MR, mod w/ porcine valve - JOHNNY: ? perivalvular abscess vs. sinus of valsalva, vegetation - DuoNebs and O2 supplementation to relieve SOB - Strict I&O - Dr. Pepe (Cardiology) consulted, appreciate recs - Hui (ID) consulted, appreciate recs. BCx 2 of 2 positive for enterococcus faecaelis. Amp+Gent for 4-6 weeks followed by 2 months Amp+rocephin. Will need PICC line moth exterminator - Dr. Rutledge (CV surgery) consulted, appreciate recs. - Lasix 40mg bid, likely to continue lasix on discharge - Will manage endocarditis with abx in light of questionable abscess. Will monitor patient and see how he improves. Repeat JOHNNY w/ Dr. Pepe in the next few weeks. Will f/u outpatient. - Placement/home health pending today. LE Edema likely 2/2 CHF exacerbation - improved Normocytic normochromic Anemia likely due to Anemia of chronic disease vs. hemolysis - likely 2/2 to CHF based on iron studies but also possible hemolysis. Acute blood loss unlikely. Hgb is stable - LDH elevated. No abnormal cells such as schistocytes on smear. - haptoglobin normal - FOBT still needing to be collected. Will await bowel movement. - GI consulted, appreciate recs. PPI started. Pt may need EGD/Colonoscopy in future since he has never had them, but we must address his heart problems first. Follow up w/ scopes outpatient. Hyponatremia, acute - improved - Pt is fluid restricted. Will avoid salt tabs due to heart condition. - Encourage gatorade for fluids in place of water. - Likely 2/2 volume overload, continue lasix and monitoring of sodium. Recent UTI s/p PO abx x2 - pt and very worried about UTI - Repeat UA: 1+ blood, rare bacteria, 4-6 RBC and WBC - Pt on abx for endocarditis. Persistent blood on UA likely warrants further workup. Will address heart problems first. Urine culture no growth. TICO HTN HLD - continue home medications and home CPAP VTE PPx: LVX GI PPx: pantoprazole Dispo: tele inpatient
[2019-03-14] MEDS: Furosemide 40 MG/4 ML VIAL SLOW IVP SCH ×2 (05:41→13:28)
[2019-03-14] MEDS ORDERED: Potassium Chloride 20 MEQ TAB PO SCH (08:00)
[2019-03-14] MEDS: Icosapent Ethyl [Vascepa] 1 GM PO SCH ×2 (09:11→16:37)
[2019-03-14] MEDS: Bupropion 150 MG XL TAB PO SCH (09:12)
[2019-03-14] MEDS: Amlodipine 10 MG TAB PO SCH (09:13)
[2019-03-14] MEDS: Enoxaparin Sodium 40 MG/0.4 ML SYRINGE SC SCH (09:13)
[2019-03-14] MEDS: Folic Acid 1 MG TAB PO SCH (09:13)
[2019-03-14] MEDS: Gabapentin 100 MG CAP PO SCH ×2 (09:13→15:27)
[2019-03-14] MEDS: Aspirin 325 mg Enteric Coated Tablet PO SCH (09:24)
--- NOTE | 2019-03-14 11:06 | PRG ---
DATE OF SERVICE: 03/14/2019 SUBJECTIVE: Mr. Collins is doing well. No current complaints. The patient has been afebrile. OBJECTIVE: VITAL SIGNS: Blood pressure 143/65, pulse 95 temperature afebrile. LUNGS: Clear to auscultation. HEART: Regular rate and rhythm. ABDOMEN: Soft, nontender, nondistended. EXTREMITIES: No edema. PERTINENT LABORATORY DATA: Include hemoglobin of 8.1, white blood cell count 6.7. IMPRESSION: 1. Endocarditis. 2. Coronary artery disease. 3. Status post aortic valve replacement. 4. Status post bypass surgery. RECOMMENDATIONS: 1. Mr. Collins has a PICC line with antibiotics being infused over the next 6 weeks (orders per Dr. Jose Ames). 2. Please see previous note on recommendation of antibiotic therapy versus repeat AVR. I have opted for continue antibiotic therapy and repeat JOHNNY in the next 2 to 3 weeks. 3. The patient may need skilled or home health for assistance. 4. Decrease aspirin to 81 q.a.m. Continue atenolol in addition to pravastatin and niacin. Otherwise, I have no further recommendations. We will sign off. Please re-consult if needed. Job ID: [id number]
[2019-03-14] MEDS: Rifampin 300 MG CAP PO SCH (11:18)
[2019-03-14 15:53] VITALS: TEMP 98.3
[2019-03-14 17:19] VITALS: BP 156/67
[2019-03-15] MEDS ORDERED: Aspirin 81 mg Enteric Coated Tablet PO SCH (09:00)
--- NOTE | 2019-03-17 11:17 | DIS ---
DATE OF ADMISSION: 03/09/2019 DATE OF DISCHARGE: 03/14/2019 RESIDENT: Edith Gonzalez MD. ADMITTING ATTENDING: Dr. Fonseca. DISCHARGE ATTENDING: Dr. Maximino Chopra. CONSULT: 1. Cardiology, Dr. Pepe. 2. Infectious Disease, Dr. Ames. 3. Cardiovascular Surgery, Dr. Rutledge. PROCEDURES: 1. Chest x-ray on 03/09/2019. 2. Bilateral lower extremity venous Doppler ultrasound on 03/09/2019. 3. CT angiogram of the chest and thorax, 03/09/2019. 4. Transthoracic echocardiogram, 03/10/2019 5. Chest x-ray, 03/11/2019 6. Transesophageal echocardiogram, 03/12/2019 PRIMARY DIAGNOSIS: Enterococcus faecalis endocarditis. SECONDARY DIAGNOSES: 1. Acute congestive heart failure exacerbation. 2. History of recent aortic valve replacement with bioprosthesis and 2-vessel coronary artery bypass graft in October 2018. 3. Normocytic normochromic anemia. 4. Hyponatremia. 5. Obstructive sleep apnea. 6. Hypertension, chronic. 7. Hyperlipidemia. 8. Obstructive sleep apnea DISCHARGE MEDICATIONS: 1. Albuterol sulfate 8.5 g (ProAir) two puffs q.6 hours p.r.n. 2. Amlodipine 10 mg p.o. daily. 3. Ampicillin IV 2 g q.6 hours. 4. Aspirin 81 mg daily. 5. Atenolol 50 mg nightly. 6. Bupropion 150 mg p.o. daily. 7. Folic acid 0.4 mg p.o. daily. 8. Furosemide 20 mg p.o. daily. 9. Gabapentin 100 mg p.o. three times daily. 10. Gentamicin 60 mg IV q.8 hours. 11. Icosapent ethyl 1 g capsule p.o. twice daily. 12. Ipratropium albuterol sulfate 3 mL two puffs inhaled four times daily. 13. Niacin 500 mg p.o. daily. 14. Potassium chloride 10 mEq p.o. daily. 15. Pravastatin 80 mg p.o. nightly. DISCONTINUED MEDICATIONS: None. HISTORY OF PRESENT ILLNESS AND HOSPITAL COURSE: Mr. Collins is a 69-year-old male who underwent recent aortic valve replacement with bioprosthesis and a 2-vessel CABG in October of this year, who presented to the ED with his , complaining of worsening shortness of breath. The patient had felt more short of breath since his surgery, and he had dyspnea on exertion. This was associated with sporadic swelling of both lower extremities. He denied cough or sputum production, chest pain, palpitations, abdominal pain, nausea, vomiting, diarrhea, syncope, fever, chills , or night sweats. Pt did not have any recorded fever during his hospitalization. Emergency department ruled out PE with CT Angiogram of the chest. On admission, pt was treated as having an acute CHF exacerbation. He was given Lasix and seemed to improve. He was also given DuoNebs and oxygen supplementation. Transthoracic echocardiogram showed EF of 40-45%, moderate aortic stenosis and moderate mitral regurgitation. Cardiology was consulted, who then evaluated the patient. Transesophageal echocardiogram was ordered and showed vegetation along with what could have been a possible abscess versus a normal sinus of Valsalva. CV surgery reviewed JOHNNY with cardiology, and no surgery was recommended to replace the valve. Dr. Ames was consulted and vancomycin and rifampin were started due to presumed endocarditis. Bacterial cultures resulted 2 out of 2 positive for enterococcus faecalis. Antibiotics were switched per Dr. Ames to ampicillin and gentamicin. Recommendation was to continue for 4 weeks, then give ceftriaxone with ampicillin for 1-2 more months to reduce nephrotoxicity. During this time, the patient was also noted to have a normocytic normochromic anemia. Iron studies indicate this may have been due to anemia of chronic disease versus hemolysis. LDH was elevated, haptoglobin was normal. We recommend patient does have routine colonoscopy done as an outpatient. Otherwise, his hemoglobin remained stable during his admission. Disposition: Stable. Discharge Instructions: Location: SNF for frequent administration of IV antibiotics and cardiac rehab Diet: Heart Healthy Activity: As tolerated. Physical therapy, occupational therapy, cardiac rehab Follow up: with PCP and cardiology, cardiovascular surgery as scheduled. With Dr. Ames for evaluation of antibiotic therapy for endocarditis. Job ID: [id number] [facility]
--- NOTE | 2019-03-18 01:19 | PQF ---
[employer] [facility] Medical CenterGARRETT EBONI YOUSIF MD *christen [id number] CLINICAL DOCUMENTATION CLARIFICATION FORM: POST DISCHARGE Addendum to original discharge summary date: ____ Late entry note date: __ DATE: 03/18/2019 ATTN: Marielena Fonseca MD Please exercise your independent, professional judgment in responding to the clarification form. Clinical indicators are provided on the bottom of this form for your review Kindly clarify regarding condition occasioning IP admission Please check appropriate box(s): [x ] Acute on chronic systolic heart failure [ ] Endocarditis of the prosthetic aortic valve [ ] Other diagnosis [ ] Unable to determine In addition, please specify: Present on Admission (POA): [ x ] Yes [ ] No [ ] Unable to determine For continuity of documentation, please document condition throughout progress notes and discharge summary. Thank You. CLINICAL INDICATORS - SIGNS / SYMPTOMS / LABS HFREF in acute exacerbation, BNP 795, CXR: Evidence of decompensated CHF - H and P Endocarditis of the LVOT side of the aortic valve - JOHNNY done on 03/12 by Jose Lloyd Endocarditis, history of AV replacement with bioprosthesis. JOHNNY: Perivalvular abscess and vegetation - [facility] medicine PN dated 03/[address] Eboni Ames (ID) consulted, BCx 2 of 2 positive for enterococcus faecaelis, amp+gent for 4-6 weeks. Will need PICC line alf - [facility] medicine PN dated 03/[address] Selene Gonzalez RISK FACTORS History of Afib - H and P History of aortic valve replacement - [facility] PN dated 03/[address] Eboni Gonzalez TREATMENTS: JOHNNY - OP note dated 03/12 by Jose Lloyd PICC line - Interventional procedure dated 03/13 by Maricarmen IV Lasix started on 03/09 - Medications IV Vancomycin started on 03/11 - Medications [employer] (This form is maintained as a part of the permanent medical record) 2014 [employer], [employer]. All Rights Reserved Loida [email or web address] [phone] MTDD
== END 2019-03-14 20:15 | disposition swing bed (61) | DRG 291 ==
LOC: SCSER 09:37 → 2SW 12:27 → OBSVTOIN 16:32 → 2NO 03-10 18:26
PROVIDERS: ADMIT Family Medicine; ATTEND Family Medicine
PROC: B24BZZ4 Ultrasonography of Heart with Aorta, Transesophageal (ICD-10-PCS; 2019-03-12)
PROC: 02HV33Z Insertion of Infusion Device into Superior Vena Cava, Percutaneous Approach (ICD-10-PCS; principal; 2019-03-13)
PROC: B518YZA Fluoroscopy of Superior Vena Cava using Other Contrast, Guidance (ICD-10-PCS; 2019-03-13)
PROC: B548ZZA Ultrasonography of Superior Vena Cava, Guidance (ICD-10-PCS; 2019-03-13)
DX: I11.0 Hypertensive heart disease with heart failure (principal); I33.0 Acute and subacute infective endocarditis; T82.6XXA Infection and inflammatory reaction due to cardiac valve prosthesis, initial encounter; E87.1 Hypo-osmolality and hyponatremia; I50.23 Acute on chronic systolic (congestive) heart failure; G47.33 Obstructive sleep apnea (adult) (pediatric); E78.5 Hyperlipidemia, unspecified; E11.9 Type 2 diabetes mellitus without complications; I25.10 Atherosclerotic heart disease of native coronary artery without angina pectoris; D63.8 Anemia in other chronic diseases classified elsewhere; M19.90 Unspecified osteoarthritis, unspecified site; D50.9 Iron deficiency anemia, unspecified; B95.2 Enterococcus as the cause of diseases classified elsewhere; F17.290 Nicotine dependence, other tobacco product, uncomplicated; Z95.2 Presence of prosthetic heart valve; Z95.1 Presence of aortocoronary bypass graft
CPT/HCPCS: 36415; 36569; 71045; 71275; 80048; 80053; 80170; 80202; 81001; 82550; 82553; 82728; 83010; 83540; 83550; 83615; 83880; 83930; 83935; 84300; 84484; 85007; 85025; 85027; 85046; 85060; 85379; 85610; 85652; 86140; 86850; 86900; 86901; 87040; 87077; 87086; 87149; 87186; 93005; 93306; 93312; 93798; 93970; 94640; 94660; 96372; 96374; C1751; J0290; J0696; J1580; J1644; J1650; J1940; J2704; J3370; J3490; J7050; J7620; Q9966

== ENCOUNTER 2019-03-31 11:49 | Day surgery (SDC) | payer MEDICARE, OTHER ==
[2019-03-31] MEDS ORDERED: PROPOFOL 20 ML ONE (13:36)
--- NOTE | 2019-04-01 17:08 | OP ---
DATE OF PROCEDURE: 03/31/2019 PREPROCEDURE DIAGNOSIS: Endocarditis. POSTPROCEDURE DIAGNOSIS: Cannot completely exclude perivalvular abscess. PROCEDURE PERFORMED: JOHNNY. SEDATION: Conscious sedation performed with propofol. The patient was consented for the procedure. Propofol was used for conscious sedation. Anesthesia was present. FINDINGS: There appears to be a filling defect present in the 60-degree view along the noncoronary cusp region. There also appears to be a connection present from the LVOT into this filling defect. Multiple views were noted. Difficult to distinguish whether this is a true dilated coronary sinus versus a perivalvular abscess. No vegetations are present. IMPRESSION: Cannot completely exclude perivalvular abscess. Reviewed with Dr. Marc Rutledge and Dr. Sunil Oliva. Recommend transfer to [facility] in [place] for further recommendations. Job ID: [id number]
== END 2019-03-31 15:30 | disposition home or self-care (01) ==
LOC: CCL 11:49
PROVIDERS: ATTEND Internal Medicine Cardiovascular Disease
PROC: B246ZZ4 Ultrasonography of Right and Left Heart, Transesophageal (ICD-10-PCS; principal; 2019-03-31)
DX: I38 Endocarditis, valve unspecified (principal); I11.0 Hypertensive heart disease with heart failure; I25.10 Atherosclerotic heart disease of native coronary artery without angina pectoris; I50.9 Heart failure, unspecified; I48.91 Unspecified atrial fibrillation; G47.33 Obstructive sleep apnea (adult) (pediatric); M19.90 Unspecified osteoarthritis, unspecified site; Z79.82 Long term (current) use of aspirin; Z79.899 Other long term (current) drug therapy; Z87.891 Personal history of nicotine dependence; Z95.1 Presence of aortocoronary bypass graft; Z95.2 Presence of prosthetic heart valve
CPT/HCPCS: 93312; J2704

== ENCOUNTER 2019-07-11 12:44 | Outpatient (CLI) | payer MEDICARE, OTHER ==
--- NOTE | 2019-07-11 14:40 | RAD ---
TWO VIEWS OF THE CHEST: COMPARISON: 04/28/2019. HISTORY: CHF. FINDINGS: Two views of the chest show an enlarged but stable cardiomediastinal silhouette. There is a small to moderate right pleural effusion with fluid tracking into the minor fissure. No consolidation is see n. The patient is status post sternotomy. IMPRESSION: Cardiomegaly and right pleural effusion. POS: [facility]
== END 2019-07-11 12:45 | disposition home or self-care (01) ==
LOC: BICRAD 12:44
PROVIDERS: ATTEND Family Medicine
DX: I50.9 Heart failure, unspecified (principal); I51.7 Cardiomegaly; J90 Pleural effusion, not elsewhere classified
CPT/HCPCS: 71046

== ENCOUNTER 2019-07-28 15:16 | Outpatient (CLI) | payer MEDICARE, OTHER ==
--- NOTE | 2019-07-28 15:35 | RAD ---
EXAM: Chest 2 views: HISTORY: Shortness of breath COMPARISON: 07/11/2019 FINDINGS: There is a normal-sized cardiomediastinal silhouette. There is a small right pleural effusion with ad jacent atelectasis. A small left pleural effusion is also seen. The bones are unremarkable. IMPRESSION: Stable exam
== END 2019-07-28 15:17 | disposition home or self-care (01) ==
LOC: RAD 15:16
PROVIDERS: ATTEND Physician Assistant
DX: R06.02 Shortness of breath (principal)
CPT/HCPCS: 36415; 71046; 80053; 83880; 85025; 85379

== ENCOUNTER 2019-08-13 07:50 | Outpatient (CLI) | payer MEDICARE, OTHER ==
[2019-08-13 15:44] LABS: Hemoglobin 9.4 g/dL (14.0-18.0); Mean Corpuscular HGB CONC 33.4 g/dL (32.0-36.0); Mean Corpuscular Hemoglobin 31.9 pg (27.0-31.0); Mean Corpuscular Volume 95.6 fL (78.0-98.0); Mean Platelet Volume 8.7 fL (7.4-10.4); Platelet Count 162 thou/uL (130-400); RBC Distribution Width 15.4 % (11.5-14.5); Red Blood Cell (RBC) Count 2.95 mill/uL (4.70-6.10); White Blood Cell (WBC) Count 8.8 thou/uL (4.8-10.8)
[2019-08-13 15:51] LABS: INR-International Normal Ratio 1.5; Prothrombin Time 17.8 SEC (12.0-14.7)
[2019-08-13 16:22] LABS: Anion Gap 13 mmol/L (10-20); BUN (Urea Nitrogen) 41 mg/dL (8.4-25.7); Calc. Creatinine Clearance 0 mL/min (70-130); Calcium 9.7 mg/dL (7.8-10.44); Carbon Dioxide 31 mmol/L (23-31); Chloride 91 mmol/L (98-107); Estimated GFR-MDRD 43; Glucose 129 mg/dL (80-115); Sodium 131 mmol/L (136-145)
== END 2019-08-13 07:51 | disposition home or self-care (01) ==
LOC: LABBT 07:50
PROVIDERS: ATTEND Specialist
DX: Z01.818 Encounter for other preprocedural examination (principal); I50.9 Heart failure, unspecified
CPT/HCPCS: 80048; 83880; 85027; 85610; 85730; 93005; 93010

== ENCOUNTER 2019-08-15 11:43 | Day surgery (SDC) | payer MEDICARE, OTHER ==
[2019-08-13 13:57] VITALS: BMI 25.9
[~2019-08-15 11:43] MED LIST: Fentanyl 100 MCG/2 ML VIAL ONE
[2019-08-15] MEDS ORDERED: Heparin 10,000 UNITS/1 ML VIAL ONE (13:12)
[2019-08-15] MEDS ORDERED: Midazolam HCl 2 mg/2 ml Vial ONE (13:23)
[2019-08-15] MEDS ORDERED: Fentanyl 100 MCG/2 ML VIAL ONE (13:23)
[2019-08-15] MEDS ORDERED: Propofol 1,000 MG/100 ML VIAL IV ONE (13:24)
[2019-08-15] MEDS ORDERED: Ketamine 50 MG/ML (10ML VIAL) ONE (13:24)
[2019-08-15] MEDS ORDERED: PROPOFOL 200 MG/20 ML VIAL ONE (14:01)
[2019-08-15] MEDS ORDERED: Isoproterenol 0.2 MG/1 ML AMP ONE (14:54)
--- NOTE | 2019-08-16 09:10 | OP ---
DATE OF PROCEDURE: 08/15/2019 PREPROCEDURE DIAGNOSIS: Atrial flutter. POSTOPERATIVE DIAGNOSIS: Atrial flutter. PROCEDURE PERFORMED: Transesophageal echocardiography to assess left atrial appendage velocities. DESCRIPTION OF PROCEDURE: The patient was consented for the procedure. I discussed procedure in full detail with Mr. Collins. Risks include, but not limited to the following: Damage to teeth, mouth, back of throat, damage to esophagus as well as esophageal perforation, requiring emergency surgery. All questions were answered. Given the above, the patient agreed to proceed with above procedure. FINDINGS: Left atrial appendage was difficult to visualize in the standard views. After much manipulation, appendage was visualized. No obvious thrombus was present. Velocities approached 100 cm/second. IMPRESSION: 1. No thrombus present within the left atrial appendage. 2. Increased velocities present within the left atrial appendage. Job ID: [id number]
--- NOTE | 2019-08-16 10:38 | OP ---
DATE OF PROCEDURE: 08/15/2019 PROCEDURE PERFORMED: Ablation for atrial flutter. DESCRIPTION OF PROCEDURE: The patient came to the EP lab in the postabsorptive state. Informed consent was obtained. A time-out was called. The patient was sedated by member of the anesthesia staff. Once the patient was adequately sedated, the right and left femoral regions were prepped and draped in usual sterile fashion. Of note, the patient had a JOHNNY prior to this including a left atrial thrombus by Dr. Pepe. This will be reported separately. Using a modified Seldinger technique, access was obtained x3 in the right femoral vein. Using ultrasound guidance, two 8-Greenlandic sheaths and a 6-Greenlandic sheath were advanced. A decapolar catheter was placed in the coronary sinus for left atrial pacing and recording. A PentaRay catheter was placed into the right atrium, and an electroanatomical map was created demonstrating that this appeared to be consistent with typical atrial flutter. An STSF J-curve catheter was then placed into the right atrium along the cavotricuspid isthmus area, and radiofrequency ablation was delivered in that area beginning at the tricuspid valve down to the inferior vena cava approximately the 6 o'clock position at about 30 UKRAINIAN visualization with ultimate termination of the atrial flutter. Pacing in the coronary sinus demonstrated bidirectional block. Isoproterenol was given and no further arrhythmias were elicited. After this, the catheters were removed, sheaths were removed, and hemostasis was obtained by placement of Vascade devices x3. Of note, the HV interval was 40 milliseconds and the tachycardia cycle length was approximately 200 milliseconds. The patient tolerated the procedure well and was discharged to the EP lab in stable condition. ESTIMATED BLOOD LOSS: Less than 30 mL. COMPLICATIONS: None acute. PROCEDURE PERFORMED: Ablation for typical atrial flutter, left atrial pacing and recording, electroanatomical mapping. CONCLUSIONS: Successful ablation for typical atrial flutter. RECOMMENDATIONS: The patient will follow up with Dr. Robert, may be discharged later today. Job ID: [id number]
== END 2019-08-15 18:25 | disposition home or self-care (01) ==
LOC: CCL 11:43
PROVIDERS: ATTEND Specialist
DX: I48.3 Typical atrial flutter (principal); G47.33 Obstructive sleep apnea (adult) (pediatric); J44.9 Chronic obstructive pulmonary disease, unspecified; I11.0 Hypertensive heart disease with heart failure; I50.30 Unspecified diastolic (congestive) heart failure; Z95.2 Presence of prosthetic heart valve; Z79.82 Long term (current) use of aspirin; Z79.01 Long term (current) use of anticoagulants; Z79.899 Other long term (current) drug therapy; Z95.1 Presence of aortocoronary bypass graft
CPT/HCPCS: 76942; 93005; 93010; 93312; 93613; 93621; 93623; 93653; C1730; C1769; J1644; J2250; J2704; J3010

== ENCOUNTER 2019-10-03 18:43 | Observation (INO) | payer MEDICARE, OTHER ==
[2019-10-03] MEDS ORDERED: HYDROcodone/Acetaminophen 5/325 mg Tablet ONE (19:20)
[2019-10-03 19:23] LABS: #Lymphocytes 0.3 thou/uL (1.20-3.40); #Monocytes 0.6 thou/uL (0.11-0.59); #Neutrophils 8.4 thou/uL (1.40-6.50); %Basophils 0.1 % (0.0-1.0); %Eosinophils 0.2 % (0.0-10.0); %Monocytes 6.2 % (0.0-10.0); %Neutrophils 90.7 % (42.0-75.0); Mean Corpuscular HGB CONC 31.1 g/dL (32.0-36.0); Mean Corpuscular Volume 93.4 fL (78.0-98.0); Mean Platelet Volume 8.4 fL (7.4-10.4); Platelet Count 151 thou/uL (130-400); RBC Distribution Width 16.8 % (11.5-14.5); Red Blood Cell (RBC) Count 2.42 mill/uL (4.70-6.10); White Blood Cell (WBC) Count 9.3 thou/uL (4.8-10.8)
[2019-10-03 19:42] LABS: ALT (SGPT) 36 U/L (8-55); AST (SGOT) 31 U/L (5-34); Albumin 3.1 g/dL (3.4-4.8); Alkaline Phosphatase 138 U/L (40-110); Anion Gap 12 mmol/L (10-20); BUN (Urea Nitrogen) 41 mg/dL (8.4-25.7); Bilirubin, Total 1.6 mg/dL (0.2-1.2); Calc. Creatinine Clearance 0 mL/min (70-130); Calcium 9.1 mg/dL (7.8-10.44); Carbon Dioxide 32 mmol/L (23-31); Chloride 88 mmol/L (98-107); Estimated GFR-MDRD 38; Globulin 3.3 g/dL (2.4-3.5); Glucose 108 mg/dL (80-115); Magnesium 1.5 mg/dL (1.6-2.6); Potassium 3.1 mmol/L (3.5-5.1); Protein, Total 6.4 g/dL (5.8-8.1); Sodium 129 mmol/L (136-145)
--- NOTE | 2019-10-03 19:58 | RAD ---
PORTABLE CHEST ONE VIEW: 10/03/19 at 6:52 p.m. HISTORY: Weakness, low H&H. Knee pain. FINDINGS/IMPRESSION: Comparison is made with exam of 07/28/19. There are postop changes of median sternotomy. The heart size is borderline. There is mild pulmonary vascular congestion. No lobar consolidation, pneumothoraces or large effusions are seen. POS: [facility]
--- NOTE | 2019-10-03 20:00 | RAD ---
LEFT KNEE FOUR VIEWS: 10/03/19 HISTORY: Left knee pain. FINDINGS/IMPRESSION: Degenerative changes are present in the left knee. No acute fracture or dislocation is identified. Soft tissue swelling is present with probable joint effusion. There are vascular calcifications. POS: [facility]
[2019-10-03] MEDS ORDERED: Potassium Chloride 20 MEQ/100 ML PREMIX BAG ONE (20:28)
[2019-10-03] MEDS ORDERED: Potassium Chloride 20 MEQ TAB ONE (20:29)
--- NOTE | 2019-10-03 21:10 | PDOC.FPRHP ---
- History of Present Illness Chief Complaint: Weakness History of Present Illness: Patient is a 69 y/o male who a PMH significant for A-Fib, s/p JOHNNY w/ Ablation, HFpEF, HTN, and Normocytic Anemia who presents to the ED for evaluation of Anemia. Per the patient, he had been seen by his HH nurse on 10/01 for routine lab draws, and was notified today by his PCP that his Hg and Hct were low and that he should present for further evaluation. Patient denies any complaints at this time, specifically with regard to significant weakness, fevers, chills, bone pain / LBP, N/V/D/C, bloody stools, melanotic stools, changes in stool caliber, known GI dysfunction or malignancy, changes in medication regimen, changes in diet, recent trauma, dysuria, hematuria, new- onset rashes or skin discoloration, BROWN, visual disturbances, rhinorrhea, epistaxis, cough, SOB, chest pain, peripheral edema, myalgias or arthralgias. Patient states that he has never had a colonoscopy and denies a known Fhx of GI malignancy, but states that he had a ColoGuard test 2-3 years prior. ED Course: Patient was evaluated in the ED and found to be in no acute cardiopulmonary distress. s/p K 40 mEq H / Hct: 22.6 BUN: 44 / Cr: 1.77 M.5 - Allergies/Adverse Reactions Allergies Allergy/AdvReac Type Severity Reaction Status Date / Time No Known Allergies Allergy Verified 10/04/19 00:03 - Home Medications Medication Instructions Recorded Confirmed Type Aspirin [Ecotrin Low Strength] 81 mg PO DAILY 04/17/19 10/04/19 History Atorvastatin Calcium [Lipitor] 20 mg PO HS #30 tab 05/31/19 10/04/19 Rx Bumetanide [Bumex] 1 mg PO DAILY #30 tab 05/31/19 10/04/19 Rx Lisinopril [Zestril] 5 mg PO DAILY #30 tab 05/31/19 10/04/19 Rx Pantoprazole [Protonix] 40 mg PO DAILY #30 tab 05/31/19 10/04/19 Rx Albuterol Sulfate [Albuterol 1 puff PO DAILY 08/13/19 10/04/19 History Sulfate Hfa] Amiodarone [Cordarone] 200 mg PO DAILY 08/13/19 10/04/19 History Apixaban [Eliquis] 5 mg PO BID 08/13/19 10/04/19 History BuPROPion XL [Wellbutrin XL] 150 mg PO DAILY 08/13/19 10/04/19 History Icosapent Ethyl [Vascepa] 2 tab PO BID 08/13/19 10/04/19 History Metolazone [Zaroxolyn] 5 mg PO ASDIR 08/13/19 10/04/19 History Testosterone 4 pump TOP DAILY 08/13/19 10/04/19 History Amlodipine [Norvasc] 2.5 mg PO DAILY 10/04/19 10/04/19 History Carvedilol [Coreg] 12.5 mg PO BID-WM 10/04/19 10/04/19 History Gabapentin 100 mg PO TID 10/04/19 10/04/19 History Potassium Chloride 40 meq PO BID 10/04/19 10/04/19 History traMADol HCl [Tramadol HCl] 50 mg PO TID PRN 10/04/19 10/04/19 History - History PMHx: 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 No EtOH or drug use. Lives at home with nurse. Code: Full - Review of Systems General: reports: other (weakness, typically as a result of left knee pain). denies: fever/chills, weight/appetite/sleep changes Eyes: denies: vision changes ENT: denies: nasal congestion, rhinorrhea Respiratory: denies: cough, shortness of breath Cardiovascular: denies: chest pain, palpitation, edema Gastrointestinal: reports: other (hemorrhoids). denies: nausea, vomiting, diarrhea, constipation, abdominal pain, GI bleeding Genitourinary: reports: other (no hematuria). denies: dysuria Skin: denies: rashes, jaundice Musculoskeletal: reports: pain, arthritis/arthralgias - Vital signs BP: 108/87 HR: 60 RR: 22 Tmax: Pox: 96% on RA Wt: - Physical Exam Constitutional: NAD, awake, alert and oriented, well developed HEENT: normocephalic and atraumatic, PERRLA, EOMI, conjunctiva clear, no scleral icterus, grossly normal vision, grossly normal hearing, normal nasal mucosa, MMM, oropharynx clear, good dention Neck: supple, FROM, trachea midline, no LAD Chest: no-tender to palpation, no lesions Heart: RRR, normal S1/S2, pulses present, no edema, other (2/6 systolic murmur heard throughout the precordium w/ radiation to both Carotids.) Lungs: CTAB, no respiratory distress, good air movement, no rales/rhonchi, no wheezing, no retractions Abdomen: soft, non-tender, bowel sounds present, no masses/distention, other ( Umbilical hernia, reducible) Musculoskeletal: normal structure, normal tone, ROM grossly normal, other (Left knee slightly swollen, no warmth or erythema) Neurological: no focal deficit Skin: no rash/lesions, no jaundice Heme/Lymphatic: no unusual bruising or bleeding, no purpura, no petechia, no LAD Psychiatric: normal mood and affect, good judgment and insight, intact recent and remote memory FMR H&P: Results - Labs Result Diagrams: 10/04/19 05:50 10/04/19 05:50 Lab results: WBC 9.3 thou/uL (4.8-10.8) 10/03/19 19:13 Hgb 7.0 g/dL (14.0-18.0) L 10/03/19 19:13 Hct 22.6 % (42.0-52.0) L 10/03/19 19:13 MCV 93.4 fL (78.0-98.0) 10/03/19 19:13 Plt Count 151 thou/uL (130-400) 10/03/19 19:13 Neutrophils % 90.7 % (42.0-75.0) H 10/03/19 19:13 Sodium 129 mmol/L (136-145) L 10/03/19 19:13 Potassium 3.1 mmol/L (3.5-5.1) L 10/03/19 19:13 Chloride 88 mmol/L (98-107) L 10/03/19 19:13 Carbon Dioxide 32 mmol/L (23-31) H 10/03/19 19:13 BUN 41 mg/dL (8.4-25.7) H 10/03/19 19:13 Creatinine 1.77 mg/dL (0.7-1.3) H 10/03/19 19:13 Glucose 108 mg/dL (80-115) 10/03/19 19:13 Calcium 9.1 mg/dL (7.8-10.44) 10/03/19 19:13 Total Bilirubin 1.6 mg/dL (0.2-1.2) H 10/03/19 19:13 AST 31 U/L (5-34) 10/03/19 19:13 ALT 36 U/L (8-55) 10/03/19 19:13 Alkaline Phosphatase 138 U/L (40-110) H 10/03/19 19:13 Serum Total Protein 6.4 g/dL (5.8-8.1) 10/03/19 19:13 Albumin 3.1 g/dL (3.4-4.8) L 10/03/19 19:13 - EKG Interpretation EKG: EKG: NSR - Radiology Interpretation Other Status: image reviewed by me (X-Ray (Left Knee): Effusion, no osseous abnormality) FMR H&P: A/P - Problem List (1) Normocytic anemia Current Visit: Yes Status: Acute Code(s): D64.9 - ANEMIA, UNSPECIFIED (2) Electrolyte abnormality Current Visit: Yes Status: Acute Code(s): E87.8 - OTH DISORDERS OF ELECTROLYTE AND FLUID BALANCE, NEC (3) Hyperlipidemia Current Visit: No Status: Chronic Code(s): E78.5 - HYPERLIPIDEMIA, UNSPECIFIED (4) Hypertension Current Visit: No Status: Chronic Code(s): I10 - ESSENTIAL (PRIMARY) HYPERTENSION (5) CHF (congestive heart failure) Current Visit: Yes Status: Acute Code(s): I50.9 - HEART FAILURE, UNSPECIFIED (6) Hypomagnesemia Current Visit: Yes Status: Acute Code(s): E83.42 - HYPOMAGNESEMIA (7) Hyponatremia Current Visit: No Status: Acute Code(s): E87.1 - HYPO-OSMOLALITY AND HYPONATREMIA (8) S/P aortic valve replacement Current Visit: No Status: Acute Code(s): Z95.2 - PRESENCE OF PROSTHETIC HEART VALVE - Plan Patient is a 69 y/o male who presents for evaluation of Normocytic Anemia. 1. Normocytic Anemia, Asymptomatic -Patient denies any symptoms consistent with poor PO intake, malignancy, occult GI bleed, or EtOH abuse -H / Hct: 22.6 -Type & Screen performed in the ED -Physical exam unremarkable - BRIEN/FOBT: Negative -MCV: 93 -Ferritin: Pending -Serum Fe: Pending -TIBC: Pending -Percent Saturation: Pending -B12: Pending -Folate: Pending -Reticulocyte Count: Pending -Peripheral Smear: Pending -Will plan to transfuse 1u pRBCs now and trend H&H -Patient states that he has never had a colonoscopy - will require close follow- up in an outpatient setting 2. AHSAN vs. CKD -Cr: 1.77 - elevated from previous baseline based on chart review -BUN: 44 -Likely contributing to #1 due to decrease Erythropoetin production -Received NS bolus in ED - will hold based on #3 and #5 -Will avoid nephrotoxic drugs 3. Hyponatremia -Na: 129 -Possibly secondary to diuretic use or poor PO intake -Will trend AM Labs and tailor plan of care accordingly 4. Hypomagnesemia -M.5 -Will give Mg 1 g IV at this time and trend with AM labs 5. CHF -Patient does not appear to be fluid-overloaded at this time -Will continue with gentle fluid resuscitation in order to correct #2 -Continue to monitor cardiopulmonary status -Tailor medication regimen as needed 5. HTN -BP: 125/58 on admission - currently at goal -Will continue home medication regimen 6. HLD -ASCVD Risk: 22.6% based on 2019 lab draw -Will continue home medication regimen PCP: Dr. Arenas Code: Full Diet: Heart Health w/ Low Sodium (Fluid Restriction: 1800 ml/day) Activity: Ad mee VTE PPx: Eliquis 5 mg PO BID Dispo: Patient is currently stable and admitted to the Oncology Floor for ongoing evaluation of Asymptomatic Normocytic Anemia. Will transfuse pRBCs as needed in order to ensure hemodynamic stability and goal Hg > 7. Plan to await lab results as per above and tailor plan of care accordingly. Expected LOS < 48H. FMR H&P: Upper Level - Pertinent history PCP: Deepa HPI: [id number] with a PMH notable for chronic normocytic anemia, HFpEF, and afib s/ p JOHNNY w/ ablation on eliquis & ASA who presented to the ED after being told by his PCP that labs drawn by his HH nurse yesterday were abnormal. Reports his PCP called him today to inform him that his Hgb was low and he needed to go to the ER for evaluation. Endorses weakness that he attributes to OA in his left knee. Denies any hematemesis, abdominal pain, hematochezia, melena, unintentional weight loss or changes in stool consistency. Has never had a C- scope and denies any FH of colon CA. Reports he had a negative cologuard test ~ 2 years ago. ED course: 1U of PRBCs ordered See [facility] note for details of PMH. - Pertinent findings Labs/Imaging: Hgb 6.7-->7.0 MCV 92 Na 129 K 3.1 Mg 1.5 Cl 88 HCO3 34 BUN 41 Cr 1.77 eGFR 38 CXR: NAF REVIEW OF SYSTEMS: Gen: no fever, chills, or sweats or decreased appetite Neuro: no numbness/tingling, no weakness Eyes: no visual changes ENT: no sore throat, no runny nose Resp: + cough & SOB Card: denies chest pain, no orthopnea GI: no N/V/D, no abdominal pain : no dysuria, no hematuria MSK: no myalgias, no joint pain/stiffness Heme: no easy bruising/bleeding, no blood thinners Skin: no rash, no erythema Vitals: BP: 108/87 HR: 60 RR: 22 Tmax: 98.1F Pox: 96% on RA Wt: 84.4 kg PHYSICAL EXAMINATION: General: NAD, alert and oriented x3 HEENT: normal sclera & conjunctiva; grossly normal vision with glasses & grossly normal hearing Neck: Supple. Full ROM. Heart/Cardiovascular System: RRR, Cap refill < 3 seconds, no rub, no murmur, no edema Lungs/Respiratory System: No increased work of breathing. Room air. CTAB. Abdomen/Gastro-Intestinal System: soft w/ no abdominal tenderness, normal bowel sounds; small umbilical hernia that is easily reducible Extremities: Warm extremities. No cyanosis with trace edema in left ankle. Neuro: No gross deficits appreciated. CN 2-12 grossly intact. Psychiatry: Awake, Alert and cooperative with exam. Skin: No lesions, rashes, or ulcers noted. Musculoskeletal: Full ROM throughout - Plan Date/Time: 10/03/192108 I, Valarie Pastor, have evaluated this patient and agree with findings/plan as outlined by architectural intern resident. Pertinent changes/additions are listed here. A/P: #Acute on chronic anemia: -Patient has had normocytic anemia for years and reports that he has been transfused before. Hgb 6.7 yesterday with HH and still low at 7.0 on presentation. Will transfuse 1U PRBCs and check a CBC in the AM since a very low suspicion for active bleed. -Will do full anemia workup including iron studies, folate & B12 levels and a peripheral smear as last noted workup per chart review were iron studies only in March of 2019. -Currently HD stable w/o signs of any active bleeding. Will monitor VS closely. -Needs an outpatient C-scope regardless of anemia workup results. #Hypokalemia: -K 3.1 on presentation. s/p 40mEq PO K in the ER. Will recheck with AM labs. #Hypomagnesemia: -Mg 1.5 on admission. Will give 1g IV & recheck with AM labs. #Hyperbilirubinemia: -TBili has been elevated since July of 2019 per chart review. Could be some hemolytic component contributing to his anemia that could explain this. Will consider adding an LDH as well as direct and indirect Tbili levels as alk phos is also slightly elevated. Other LFTs WNLs. #Hyponatremia: -Na 129 on presentation. Has been low before per chart review. Patient reports he take metolazone in addition to bumex which could be contributing to this. #Hypochloremic metabolic alkalosis: -Cl 88 & HCO3 32. Suspect this is diuretic-induced. Will give 500mL of NS and repeat labs in the AM. #AHSAN vs. CKDIII -Renal function in CKDIII range since March of 2019 but was WNLs before that date. Will give small bolus in setting of CHF history & reassess in the AM. Will renally dose meds PRN. #HFpEF (55-60%) -Does not appear to be in acute exacerbation. Will resume home meds. #CAD s/p 3V CABG -Will resume home meds. #COPD -Will resume home meds. #HTN -Will resume home meds. #HLD -Will resume home meds. #TICO -Aware, will resume CPAP use as indicated. #OA -Tylenol PRN for pain. #h/o endocarditis -Aware. ABx: None Fluids: SL VTE PPX: Eliquis GI PPX: None Code status: FULL CODE Dispo: Admit to medical floor for transfusion of blood products overnight. Anticipated LOS <48hrs pending clinical course. Addendum - Attending - Attending Attestation Date/Time: 10/04/19 410 I personally evaluated the patient and discussed the management with Dr. Marte last night. I agree with the History, Examination, Assessment and Plan documented above with any addition or exceptions noted below.
[2019-10-03] MEDS ORDERED: Sodium Chloride 0.9% 1,000 ML IV SCH (22:08)
[2019-10-03] MEDS ORDERED: Ondansetron ODT 4 MG TAB PO PRN (22:23)
[2019-10-03] MEDS ORDERED: Acetaminophen 325 MG TAB PO PRN (22:23)
[2019-10-03 23:04] LABS: Band 8 % (5-11); Hemoglobin 6.6 g/dL (14.0-18.0); Hypochromia SLIGHT = 6-15 cells (100X) (0-5/hpf); Lymphocytes 6 % (21-51); MDiff Complete? YES; Mean Corpuscular HGB CONC 29.2 g/dL (32.0-36.0); Mean Corpuscular Hemoglobin 27.1 pg (27.0-31.0); Mean Corpuscular Volume 92.9 fL (78.0-98.0); Mean Platelet Volume 8.3 fL (7.4-10.4); Neutrophil 86 % (42-75); Platelet Count 161 thou/uL (130-400); Platelet Morphology Comment Appears Adequate; RBC Distribution Width 16.9 % (11.5-14.5); Red Blood Cell (RBC) Count 2.45 mill/uL (4.70-6.10)
[2019-10-03 23:10] LABS: Iron 23 ug/dL (65-175); Iron 24 ug/dL (65-175); Iron Binding Capacity, Total 275 mcg/dL (261-462); Iron Binding Capacity, Total 280 mcg/dL (261-462); Phosphorus 3.9 mg/dL (2.3-4.7)
[2019-10-03 23:35] LABS: Reticulocyte Count 4.4 % (0.5-1.5)
[2019-10-03 23:40] LABS: Ferritin 110.71 ng/mL (22-322); Thyroid Stimulating Hormone 3.7267 uIU/mL (0.35-4.94)
[2019-10-04 00:39] VITALS: BMI 25.9
[2019-10-04 06:08] LABS: #Lymphocytes 0.3 thou/uL (1.20-3.40); #Monocytes 0.6 thou/uL (0.11-0.59); %Basophils 0.1 % (0.0-1.0); %Eosinophils 0.3 % (0.0-10.0); %Lymphocytes 3.7 % (21.0-51.0); %Monocytes 6.1 % (0.0-10.0); %Neutrophils 89.8 % (42.0-75.0); Hemoglobin 7.8 g/dL (14.0-18.0); Mean Corpuscular HGB CONC 32.1 g/dL (32.0-36.0); Mean Corpuscular Hemoglobin 29.2 pg (27.0-31.0); Mean Corpuscular Volume 90.9 fL (78.0-98.0); Mean Platelet Volume 8.7 fL (7.4-10.4); Platelet Count 157 thou/uL (130-400); RBC Distribution Width 16.4 % (11.5-14.5); Red Blood Cell (RBC) Count 2.67 mill/uL (4.70-6.10); White Blood Cell (WBC) Count 8.9 thou/uL (4.8-10.8)
[2019-10-04 06:16] LABS: Anion Gap 13 mmol/L (10-20); BUN (Urea Nitrogen) 41 mg/dL (8.4-25.7); Calc. Creatinine Clearance 47 mL/min (70-130); Carbon Dioxide 30 mmol/L (23-31); Chloride 91 mmol/L (98-107); Estimated GFR-MDRD 38; Glucose 158 mg/dL (80-115); Potassium 3.5 mmol/L (3.5-5.1); Sodium 130 mmol/L (136-145)
--- NOTE | 2019-10-04 06:26 | PDOC.FM ---
- Subjective Subjective: Pt is doing well today. He remains asymptomatic. No hx of GI issues, colon cancer in family. Has not colonoscopy but did have a sendout stool study which was negative. He denies hx of rbc dysfunction. Denies bone pain. - Objective Vital Signs & Weight: Vital Signs (12 hours) Temp Pulse Pulse Resp BP BP Pulse Ox 10/03/19 23:45 97.7 F 66 16 105/53 L 10/03/19 23:18 98.3 F 60 16 125/58 L 10/03/19 23:00 94 L 10/03/19 21:55 98.3 F 60 16 125/58 L 94 L Weight Weight 84.459 kg I&O: 10/02/19 10/03/19 10/04/19 06:59 06:59 06:59 Intake Total 350 Balance 350 Result Diagrams: 10/04/19 05:50 10/04/19 05:50 Phys Exam - Physical Examination Constitutional: NAD HEENT: PERRLA, moist MMs Respiratory: no wheezing, clear to auscultation bilateral Cardiovascular: RRR, no significant murmur Gastrointestinal: soft, non-tender, positive bowel sounds Musculoskeletal: no edema, pulses present Neurological: normal sensation, moves all 4 limbs Psychiatric: normal affect, A&O x 3 Skin: no rash, normal turgor Dx/Plan (1) CHF (congestive heart failure) Code(s): I50.9 - HEART FAILURE, UNSPECIFIED Status: Acute (2) Normocytic anemia Code(s): D64.9 - ANEMIA, UNSPECIFIED Status: Acute (3) S/P aortic valve replacement Code(s): Z95.2 - PRESENCE OF PROSTHETIC HEART VALVE Status: Acute (4) Hyperlipidemia Code(s): E78.5 - HYPERLIPIDEMIA, UNSPECIFIED Status: Chronic (5) Hypertension Code(s): I10 - ESSENTIAL (PRIMARY) HYPERTENSION Status: Chronic (6) TICO (obstructive sleep apnea) Code(s): G47.33 - OBSTRUCTIVE SLEEP APNEA (ADULT) (PEDIATRIC) Status: Chronic - Plan Plan: Patient is a 69 y/o male who presents for evaluation of Normocytic Anemia. 1. Normocytic Anemia, Asymptomatic Anemia of chronic disease vs iron deficiency anemia. Pt did have elevated bili, will check LDH -Patient denies any symptoms consistent with poor PO intake, malignancy, occult GI bleed, or EtOH abuse -H / Hct: 22.6 -Type & Screen performed in the ED -Physical exam unremarkable - BRIEN/FOBT: Negative -MCV: 93 -Ferritin: WNL -Serum Fe: low -TIBC: normal -Percent Saturation: low -B12: WNL -Folate: WNL -Reticulocyte Count, Abs retic WNL -Peripheral Smear: Pending -Will plan to transfuse 1u pRBCs now and trend H&H -Patient states that he has never had a colonoscopy - will require close follow- up in an outpatient setting 2. AHSAN vs. CKD -Cr: 1.77 - elevated from previous baseline based on chart review. Unchanged today. -BUN: 41 -Likely contributing to #1 due to decrease Erythropoetin production -Received NS bolus in ED - will hold based on #3 and #5 -Will avoid nephrotoxic drugs 3. Hyponatremia -Na: 129 > 130. Monitor. No neurological changes. -Possibly secondary to diuretic use or poor PO intake 4. Hypomagnesemia - resolved -M.5> 1.8 -Will give Mg 1 g IV at this time and trend with AM labs 5. CHF -Patient does not appear to be fluid-overloaded at this time -Will continue with gentle fluid resuscitation in order to correct #2 -Continue to monitor cardiopulmonary status -Tailor medication regimen as needed 5. HTN -BP: 125/58 on admission - currently at goal -Will continue home medication regimen 6. HLD -ASCVD Risk: 22.6% based on 2019 lab draw -Will continue home medication regimen 7. Hx of CAD s/p 3 V CABG - contine home meds 8. A-fib s/p Ablation - continue home meds PCP: Dr. Arenas Code: Full Diet: Heart Health w/ Low Sodium (Fluid Restriction: 1800 ml/day) Activity: Ad mee VTE PPx: apixaban Dispo: discharge today, will discuss on rounds as pt is stable, asymptomatic. Addendum - Attending - Attending Attestation Date/Time: 10/04/19 6560 I personally evaluated the patient and discussed the management with Dr. Milan. I agree with the History, Examination, Assessment and Plan documented above with any addition or exceptions noted below. Patient here for chronic asymptomatic anemia. He is s/p transfusion and feeling well. He is stable for discharge.
[2019-10-04] MEDS: Carvedilol 6.25 MG TAB PO SCH ×2 (08:54→18:25)
[2019-10-04] MEDS: Potassium Chloride 20 MEQ TAB PO SCH ×2 (08:55→18:25)
[2019-10-04] MEDS: Gabapentin 100 MG CAP PO SCH ×2 (08:55→16:01)
[2019-10-04] MEDS ORDERED: Bumetanide 1 MG TAB PO SCH (09:00)
[2019-10-04] MEDS ORDERED: Apixaban 5 MG TAB PO SCH (09:00)
[2019-10-04] MEDS ORDERED: Icosapent Ethyl 1 GM CAPSULE PO SCH (09:00)
[2019-10-04] MEDS ORDERED: PHOS-NAK 1 PKT PACK PO SCH (09:00)
[2019-10-04] MEDS ORDERED: Amiodarone 200 MG TAB PO SCH (09:00)
[2019-10-04] MEDS ORDERED: Aspirin 81 mg Enteric Coated Tablet PO SCH (09:00)
[2019-10-04] MEDS ORDERED: Bupropion 150 MG XL TAB PO SCH (09:00)
[2019-10-04] MEDS ORDERED: PROVENTIL INHALER 6.7 G (200 INHALATIONS) INH SCH (09:00)
[2019-10-04] MEDS ORDERED: Amlodipine 5 MG TAB PO SCH (09:00)
[2019-10-04] MEDS ORDERED: Famotidine 20 MG TAB PO SCH (09:00)
--- NOTE | 2019-10-04 11:54 | PDOC.BPN ---
- Brief Progress Note Mr. Conor Collins is a 69 yo male who presented for asymptomatic anemia, < 7 in the outpt, who did not meet inpatient criteria. Pt was seen, treated, and discharged in less than 24 hours. He remains asymptomatic at time of discharge. Pt will need follow up with Dr. Arenas, PCP, this week to re-assess normocytic anemia. Resident: Angelito Milan DO Attending: Juan C Dumont MD 10/04/19 5825
--- NOTE | 2019-10-04 12:18 | PDOC.EVN ---
Event Note - Event Note Event Note: Reviewed chart as Physician Advisor for status and d/w Family Medicine team - I agree with changing the patient from inpatient status to observation status. Patient condition does not meet either the anticipated duration of stay or the severity of condition that is necessary for inpatient status.
[2019-10-04 17:00] VITALS: TEMP 98.4
[2019-10-04 17:01] VITALS: BP 102/50
[2019-10-04] MEDS ORDERED: Atorvastatin Calcium 20 MG TAB PO SCH (21:00)
--- NOTE | 2019-10-05 03:17 | DIS ---
DATE OF ADMISSION: 10/03/2019 DATE OF DISCHARGE: 10/04/2019 RESIDENT: Angelito Milan DO ADMITTING ATTENDING: Jr Munguia MD DISCHARGE ATTENDING: Juan C Dumont MD CONSULTS: None. PROCEDURES PERFORMED: 1. Chest x-ray on 10/03/2019 revealed normal borderline heart size. Mild pulmonary vascular congestion. 2. Knee x-ray on 10/03/2019 revealed degenerative changes present in the left knee. No acute fracture dislocation identified. Soft tissue swelling is present with probable joint effusion. There vascular calcifications. PRIMARY DIAGNOSES: 1. Asymptomatic normocytic anemia. Iron deficiency anemia, Anemia of chronic disease 2. Status post aortic valve replacement. 3. Hyponatremia. 4. Hypomagnesia. SECONDARY DIAGNOSES: 1. Hyperlipidemia, hypertension, stable congestive heart failure. 2. Chronic kidney disease stage 3. DISCHARGE MEDICATIONS: 1. Aspirin 81 mg p.o. daily. 2. Lipitor 20 mg p.o. at bedtime. 3. Bumex 1 mg p.o. daily. 4. Lisinopril 5 mg p.o. daily. 5. Protonix 40 mg p.o. daily. 6. Albuterol inhaler one puff p.o. daily. 7. Amiodarone 200 mg p.o. daily. 8. Vascepa 1 g capsule two tabs p.o. daily. 9. Eliquis 5 mg p.o. b.i.d. 10. Wellbutrin 150 mg p.o. daily. 11. Metolazone 5 mg p.o. as directed per Cardiology. 12. Testosterone 75 g gel per pump, four pumps topical daily. 13. Gabapentin 100 mg p.o. t.i.d. 14. Tramadol 50 mg p.o. t.i.d. p.r.n. knee pain. 15. Potassium 40 mEq p.o. b.i.d. 16. Coreg 12.5 mg p.o. b.i.d. 17. Norvasc 2.5 mg p.o. daily. DISCONTINUED MEDICATIONS: None. HISTORY OF PRESENT ILLNESS/HOSPITAL COURSE: Conor Collins is a 69-year-old male with past medical history significant for atrial fibrillation, status post JOHNNY with ablation, heart failure with preserved EF, hypertension, normocytic anemia, aortic valve replacement, who presented to the emergency department for evaluation of his anemia. Home health nurse on 10/01 had routine labs and was notified by PCP today that his hemoglobin and hematocrit were low and he should present for evaluation. The patient denied any symptoms at the time of admission. The patient's initial hemoglobin was 7, hematocrit 22.6. He was transfused 1 unit of packed red blood cells. In the morning, the patient's hemoglobin was 7.8, hematocrit 24.3. He remained without any symptoms at this time. Of note, the patient did have some electrolyte abnormalities including hyponatremia, hypomagnesemia. Hypomagnesemia was repleted. His hyponatremia was asymptomatic likely secondary to the diuretic medications he is taking. The patient was discharged with all his home medications as he is stable. His normocytic anemia is likely secondary to chronic kidney disease and possible lysis of red blood cells across heart valve. He will need follow up with his primary care physician, Dr. Arenas. He did not have any signs of gastrointestinal bleeding and FOBT negative, so we will continue him on his anticoagulants and anti-platelet medications. Significant labs on discharge, hemoglobin 7.8, hematocrit 24.3, white blood cell count 8.9. Sodium 130, potassium 3.5, BUN 41, creatinine 1.77, glucose 158, magnesium 1.8, iron 24, TIBC 975, percent saturation 9, LDH 162, vitamin B12 of 2000, folate 11.2, TSH 3.72. DISPOSITION: Stable. DISCHARGE INSTRUCTIONS: 1. Location: [facility]. 2. Diet: Heart healthy, fluid restriction. 3. Activity: Ad mee. 4. Followup: Follow up with Dr. Arenas within one week. Job ID: [id number] MTDD
[2019-10-07] MEDS ORDERED: Metolazone 5 MG TAB PO SCH (08:30)
== END 2019-10-04 19:12 | disposition home health service (06) ==
LOC: ERS 18:43 → INTOOBSV 21:03 → ONC 21:03
PROVIDERS: ADMIT Family Medicine; ATTEND Family Medicine
DX: I13.0 Hypertensive heart and chronic kidney disease with heart failure and stage 1 through stage 4 chronic kidney disease, or unspecified chronic kidney disease (principal); N18.3 Chronic kidney disease, stage 3 (moderate); I50.30 Unspecified diastolic (congestive) heart failure; D63.1 Anemia in chronic kidney disease; D50.9 Iron deficiency anemia, unspecified; E87.6 Hypokalemia; E83.42 Hypomagnesemia; I25.10 Atherosclerotic heart disease of native coronary artery without angina pectoris; E78.5 Hyperlipidemia, unspecified; E87.8 Other disorders of electrolyte and fluid balance, not elsewhere classified; G47.33 Obstructive sleep apnea (adult) (pediatric); J44.9 Chronic obstructive pulmonary disease, unspecified; Z79.01 Long term (current) use of anticoagulants; Z79.82 Long term (current) use of aspirin; Z79.899 Other long term (current) drug therapy; Z87.891 Personal history of nicotine dependence; Z95.2 Presence of prosthetic heart valve; Z95.4 Presence of other heart-valve replacement
CPT/HCPCS: 36430; 71045; 73564; 80048; 81001; 82274; 82607; 82728; 82746; 83540; 83550; 83615; 83735 ×2; 84100; 84484; 84550; 85007; 85025; 85027; 85046; 86850; 86900; 86901; 86920; 87086; 93005; 94640; 94760; 99285; G0378; P9016; 36415; 80053; 84443; 85060; J3475; J3480

== ENCOUNTER 2019-10-24 17:21 | Emergency (ER) | payer MEDICARE, OTHER ==
[2019-10-24 18:13] LABS: #Lymphocytes 0.5 thou/uL (1.20-3.40); #Monocytes 0.5 thou/uL (0.11-0.59); #Neutrophils 7.4 thou/uL (1.40-6.50); %Eosinophils 0.2 % (0.0-10.0); %Lymphocytes 5.4 % (21.0-51.0); %Monocytes 5.8 % (0.0-10.0); %Neutrophils 88.6 % (42.0-75.0); Hemoglobin 8.3 g/dL (14.0-18.0); Mean Corpuscular HGB CONC 31.4 g/dL (32.0-36.0); Mean Corpuscular Volume 92.2 fL (78.0-98.0); Mean Platelet Volume 8.2 fL (7.4-10.4); Platelet Count 142 thou/uL (130-400); Red Blood Cell (RBC) Count 2.86 mill/uL (4.70-6.10); White Blood Cell (WBC) Count 8.3 thou/uL (4.8-10.8)
[2019-10-24 18:34] LABS: ALT (SGPT) 40 U/L (8-55); AST (SGOT) 34 U/L (5-34); Albumin 2.8 g/dL (3.4-4.8); Alkaline Phosphatase 155 U/L (40-110); Anion Gap 12 mmol/L (10-20); BUN (Urea Nitrogen) 28 mg/dL (8.4-25.7); Bilirubin, Total 1.5 mg/dL (0.2-1.2); Calc. Creatinine Clearance 0 mL/min (70-130); Calcium 8.2 mg/dL (7.8-10.44); Carbon Dioxide 29 mmol/L (23-31); Chloride 92 mmol/L (98-107); Estimated GFR-MDRD 47; Globulin 3.7 g/dL (2.4-3.5); Glucose 141 mg/dL (80-115); Potassium 3.8 mmol/L (3.5-5.1); Protein, Total 6.5 g/dL (5.8-8.1); Sodium 129 mmol/L (136-145)
--- NOTE | 2019-10-24 19:24 | RAD ---
CHEST ONE VIEW: 10/24/19 HISTORY: Leg swelling, chest pain. COMPARISON: Radiograph 10/03/19. FINDINGS: Moderate left and small right pleural effusion. Bibasilar compressive atelectasis. Heart size is enla rged. No pneumothorax. No confluent air space consolidation. IMPRESSION: Enlarging pleural effusions with compressive atelectasis in the lower lobes. POS: HOME
--- NOTE | 2019-10-24 21:27 | ULT ---
BILATERAL LOWER EXTREMITY VENOUS DOPPLER: 10/24/19 HISTORY: Pain. COMPARISON: None. FINDINGS: Real time adames scale, color Doppler and spectral analysis of the bilateral lower extremity venous sys tem was performed. The common femoral, femoral, proximal portion of the greater saphenous and deep fe moral veins as well as the popliteal and posterior tibial veins are interrogated. There is normal flow, augmentation and compression. IMPRESSION: No deep venous thrombosis. POS: HOME
== END 2019-10-24 22:49 | disposition home or self-care (01) ==
LOC: ERS 17:21
DX: R60.0 Localized edema (principal); Z79.82 Long term (current) use of aspirin; Z79.899 Other long term (current) drug therapy
CPT/HCPCS: 71045; 80053; 83880; 84484; 85025; 93005; 93970